=== PATIENT | female | born 1970 | race American Indian/Alaskan Native ===

== ENCOUNTER 2024-10-24 08:37 | Inpatient (IN) | payer BC, OTHER ==
[~2024-10-24] VITALS: Ht 162.6 cm; Wt 79.0 kg
[2024-10-24] MEDS: NITROGLYCERIN 0.4 MG SL TAB SL ONE (09:00)
[2024-10-24 09:02] LABS: Basophils # (auto) 0.1 10 ^3/uL (0-0.2); Eosinophils # (auto) 0.3 10 ^3/uL (0-0.8); Eosinophils % (auto) 4.3 % (0.0-7.0); Hematocrit 46.6 % (36.0-46.0); Hemoglobin 15.8 g/dL (12.2-16.2); Lymphocytes # (auto) 3.1 10 ^3/uL (0.4-5.4); Mean Corpuscular Hemoglobin 31.5 pg (28.0-32.0); Mean Corpuscular Hgb Conc. 33.9 g/dL (32.0-36.0); Monocytes # (auto) 0.4 10 ^3/uL (0-1.3); Monocytes % (auto) 5.7 % (0.0-12.0); Neutrophils # (auto) 2.9 10 ^3/uL (1.6-8.6); Nucleated Red Blood Cells % 0.1 %; Platelet Count (auto) 242 10^3/uL (140-450); Red Blood Cells 5.01 10^6/uL (4.0-5.20); Red Cell Distribution Width 13.5 % (11.8-14.3); White Blood Cell 6.8 10^3/uL (4.4-10.8)
--- NOTE | 2024-10-24 09:05 | ED.PDOC ---
HPI Comments 54 y.o female presents to the ED for a chief complaint of chest pain radiating to her jaw down to bilateral shoulder blades and back, associated with SOB that started this morning ambulating to the restroom. Patient describes pain as a tightness sensation, is constant, and has no alleviating or worsening factors. Patient denies any other symptoms or pain. She admits to using tobacco via cigarettes for 30+ years, quit but is now using vape device. Chief Complaint: Chest Pain Time Seen by MD: 08:46 Reviewed Notes: Nurses Notes, Medications, Allergies Allergies: Coded Allergies: Avocado (Verified Allergy, 11/11/12) Home Meds No Active Prescriptions or Reported Meds Information Source: Patient Mode of Arrival: Ambulatory Severity: Moderate Timing: Hours Duration: Since onset Location: Substernal Radiation: Back, Jaw, Shoulder (R), Shoulder (L) Quality: Tightness Onset: At Rest Cardiac Risk Factors: Smoker, HTN PE Risk Factors: None History of: None Modifying Factors: Nothing Associated Signs and Symptoms: SOB, Back Pain Past Medical History PAST MEDICAL HISTORY: HTN Surgical History: Denies all surgeries HYBRID DERIVATIVES TRADER History: No Pertinent HYBRID DERIVATIVES TRADER History Family History Family History: Reviewed,noncontributory to illness Social History Smoker: Other (vape ) Alcohol: Denies ETOH Use Drugs: Denies Drug Use Lives In: Home Constitutional: denies: chills, diaphoresis, fatigue, fever, malaise, sweats, weakness, others EENTM: denies: blurred vision, double vision, ear bleeding, ear discharge, ear drainage, ear pain, ear ringing, eye pain, eye redness, hearing loss, mouth pain, mouth swelling, nasal discharge, nose bleeding, nose congestion, nose pain, photophobia, tearing, throat pain, throat swelling, voice changes, others Respiratory: reports: SOB at rest, shortness of breath; denies: cough, he moptysis, orthopnea, SOB with excertion, stridor, wheezing, others Cardiovascular: reports: chest pain; denies: dizzy spells, diaphoresis, Dyspnea on exertion, edema, irregular heart beat, left arm pain, lightheadedness, palpitations, PND, syncope, others Gastrointestinal: denies: abdomen distended, abdominal pain, blood streaked bowels, constipated, diarrhea, dysphagia, difficulty swallowing, hematemesis, melena, nausea, poor appetite, poor fluid intake, rectal bleeding, rectal pain, vomiting, others Genitourinary: denies: abnormal vagina bleeding, burning, dyspareunia, dysuria, flank pain, frequency, hematuria, incontinence, pain, , vagina discharge, urgency, others Neurological: denies: dizziness, fainting, headache, left sided numbness, left sided weakness, numbness, paresthesia, pre-existing deficit, right sided numbness, right sided weakness, seizure, speech problems, tingling, tremors, w eakness, others Musculoskeletal: reports: others (jaw and bilateral shoulder blade pain ); denies: back pain, gout, joint pain, joint swelling, muscle pain, muscle stiffness, neck pain Integumetry: denies: bruises, change in color, change in hair/nails, dryness, laceration, lesions, lumps, rash, wounds, others Allergic/Immunocompromised: denies: Difficulty Healing, Frequent Infections, Hives, Itching, others Hematologic/Lymphatic: denies: anemia, blood clots, easy bleeding, easy bruising, swollen glands, others Endocrine: denies: excessive hunger, excessive sweating, excessive thirst, excessive urination, flushing, intolerance to cold, intolerance to heat, unexplained weight gain, unexplained weight loss, others Psychiatric: denies: anxiety, bipolar disorder, depression, hopeless, panic disorder, schizophrenia, sleepless, suicidal, others All Other Systems: Reviewed and Negative Physical Exam General Appearance: Moderate Distress HEENT: Normal ENT Inspection, Pharynx Normal, TMs Normal Neck: Full Range of Motion, Non-Tender, Normal, Normal Inspection Respiratory: Chest Non-Tender, Lungs Clear, No Accessory Muscle Use, No Respiratory Distress, Normal Breath Sounds Cardiovascular: No Edema, No JVD, No Murmur, No Gallop, Normal Peripheral Pulses, Regular Rate/Rhythm Breast Exam: Deferred Gastrointestinal: No Organomegaly, Non Tender, No Pulsatile Mass, Normal Bowel Sounds, Soft Genitalia: Deferred Pelvic: Deferred Rectal: Deferred Extremities: No calf tenderness, Normal capillary refill, Normal inspection, Normal range of motion, Non-tender, No pedal edema Musculoskeletal : Apperance: Normal Neurologic: Alert, manager logistic II-XII nml as Tested, No Motor Deficits, Normal Affect, Normal Mood, No Sensory Deficits Cerebellar Function: Normal Reflexes: Normal Skin: Dry, Normal Color, Warm Peripheral Pulses: 3+ Radial (R), 3+ Radial (L) Lymphatic: No Adenopathy Was a procedure done? Was a procedure done?: No CP Differential Dx Differential Diagnosis: A-fib, A-Flutter, Angina, Anxiety / Panic Attack, Atrial Dysrhythmia, Electrolyte Disorder Differential Diagnosis: Angina, Costochondritis, Myocardial Infarction, Pericar ditis, Pneumonia, Pneumothorax, Pulmonary Embolus X-Ray, Labs, Meds, VS Vital Signs Date Time Temp Pulse Resp B/P (MAP) Pulse Ox O2 Delivery O2 Flow Rate FiO2 10/24/24 10:48 77 10 100 Room Air* 0 21 10/24/24 10:48 87 27 109/62 (78) 96 10/24/24 09:39 78 10/24/24 09:22 77 10/24/24 08:55 98.1 86 20 130/75 (93) 97 10/24/24 08:43 85 Lab Test 10/24/24 09:59 10/24/24 09:00 10/24/24 08:45 Range/Units Troponin I High Sensitivity < 3 L < 3 L </=34 ng/L Urine Color Colorless Yellow Urine Clarity Clear Clear Urine pH 6.5 5.0-9.0 Urine Specific [place] 1.005 1.001-1.035 Urine Protein Negative Negative Urine Ketones Negative Negative Urine Blood Negative Negative /uL Urine Nitrite Negative Negative Urine Bilirubin Negative Negative Urine Urobilinogen Normal Negative mg/dL Urine Leukocyte Esterase Negative Negative /uL Urine RBC None seen 0 - 4 /hpf Urine WBC <1 0 - 5 /hpf Urine Squamous Epithelial Cells Few <5 /hpf Urine Bacteria Few H None Seen /hpf Urine Glucose Normal Normal mg/dL White Blood Count 6.8 4.4-10.8 10^3/uL Red Blood Count 5.01 4.0-5.20 10^6/uL Hemoglobin 15.8 12.2-16.2 g/dL Hematocrit 46.6 H 36.0-46.0 % Mean Corpuscular Volume 93.0 80.0-100.0 fL Mean Corpuscular Hemoglobin 31.5 28.0-32.0 pg Mean Corpuscular Hemoglobin Concent 33.9 32.0-36.0 g/dL Red Cell Distribution Width 13.5 11.8-14.3 % Platelet Count 242 140-450 10^3/uL Mean Platelet Volume 7.6 6.9-10.8 fL Neutrophils (%) (Auto) 43.0 37.0-80.0 % Lymphocytes (%) (Auto) 46.0 10.0-50.0 % Monocytes (%) (Auto) 5.7 0.0-12.0 % Eosinophils (%) (Auto) 4.3 0.0-7.0 % Basophils (%) (Auto) 1.0 0.0-2.0 % Neutrophils # (Auto) 2.9 1.6-8.6 10 ^3/uL Lymphocytes # (Auto) 3.1 0.4-5.4 10 ^3/uL Monocytes # (Auto) 0.4 0-1.3 10 ^3/uL Eosinophils # (Auto) 0.3 0-0.8 10 ^3/uL Basophils # (Auto) 0.1 0-0.2 10 ^3/uL Nucleated Red Blood Cells 0.1 % Sodium Level 141 136-145 mmol/L Potassium Level 3.7 3.5-5.1 mmol/L Chloride Level 109 H 98-107 mmol/L Carbon Dioxide Level 24 20-31 mmol/L Anion Gap 8 5-15 Blood Urea Nitrogen 7 L 9-23 mg/dL Creatinine 0.68 0.550-1.02 mg/dL Glomerular Filtration Rate Calc 103 >90 mL/min BUN/Creatinine Ratio 10.3 10.0-20.0 Serum Glucose 97 74-106 mg/dL Calcium Level 10.1 8.7-10.4 mg/dL Magnesium Level 1.9 1.6-2.6 mg/dL Total Bilirubin 1.1 H 0.2-1.0 mg/dL Aspartate Amino Transferase (AST) 17 13-40 U/L Alanine Aminotransferase (ALT) 24 7-40 U/L Alkaline Phosphatase 56 46-116 U/L Total Protein 6.8 5.7-8.2 g/dL Albumin 4.2 3.2-4.8 g/dL Current Medications Medications (Trade) Dose Ordered Sig/Tracey Route Start Time Stop Time Status Last Admin Aspirin 325 mg ONCE ONCE PO 10/24/24 09:00 10/24/24 09:08 DC 10/24/24 10:13 Sodium Chloride 1,000 ml @ 1,000 mls/hr Q1H ONCE IV 10/24/24 10:30 10/24/24 11:29 DC 10/24/24 10:30 Patient alert. Complaining of chest pain. Has risk factors for coronary artery disease. Vitals stable. Answering all questions. EKG does not show any acute changes. Was given aspirin. Establish intravenous access. Was given fluids pain Possible stress-induced. Echocardiogram. Stress test. Explained to the patient. Continue cardiac monitoring. Chest x-ray reviewed does not show any acute changes. Time of 1ST Reevaluation: 08:59 Reevaluation 1ST: Unchanged Patient Education/Counseling: Diagnosis, Treatment, Prognosis Family Education/Counseling: No Family Present Additional Information The following tests were ordered, and results were reviewed by me: Labs, XY, EKG I reviewed and agreed with the following test results read by other providers: X-Ray I discussed treatment and results with medical personnel and patient CHEST RADIOGRAPH Indication: chest pain Technique: Single frontal view of the chest was obtained COMPARISON: None FINDINGS: Lines and Tubes: None Lungs: Clear Pleura: No effusion. No pneumothorax. Cardiomediastinal contours: Unremarkable Bones: Unremarkable IMPRESSION: No acute disease. Departure 1 Departure Time of Disposition: 11:53 Impression: Primary Impression: Chest pain of unknown etiology Disposition: ADMITTED INPATIENT Admit to: Med Surg Condition: Guarded e-Prescriptions No Active Prescriptions or Reported Meds Critical Care Note Critical Care Time?: Yes (45 min-critical care time only) Stability Stability form required: No Heart Score Heart Score: Heart Score Response (Comments) Value History Slightly Suspicious 0 EKG Normal 0 Age 45-64 1 Risk Factors >3 or Hx ASHD 2 Troponin Normal limit 0 Total 3 I personally scribed for ROSALVA GLYNN MD ([email or web address]) on 10/24/24 at 09:05. Electronically submitted by Lisa Hernandez ([facility]). I personally scribed for ROSALVA GLYNN MD ([email or web address]) on 10/24/24 at 12:44. Electronically submitted by Lisa Hernandez ([facility]). ROSALVA GLYNN MD Oct 24, 2024 09:05
--- NOTE | 2024-10-24 09:23 | DVH ---
CHEST RADIOGRAPH Indication: chest pain Technique: Single frontal view of the chest was obtained COMPARISON: None FINDINGS: Lines and Tubes: None Lungs: Clear Pleura: No effusion. No pneumothorax. Cardiomediastinal contours: Unremarkable Bones: Unremarkable IMPRESSION: No acute disease.
[2024-10-24 09:26] LABS: Alanine Aminotransferase 24 U/L (7-40); Albumin 4.2 g/dL (3.2-4.8); Alkaline Phosphatase 56 U/L (46-116); Anion Gap 8 (5-15); Aspartate Aminotransferase 17 U/L (13-40); BUN/Creatinine Ratio 10.3 (10.0-20.0); Calcium 10.1 mg/dL (8.7-10.4); Carbon Dioxide 24 mmol/L (20-31); Glucose 97 mg/dL (74-106); Magnesium 1.9 mg/dL (1.6-2.6); Potassium 3.7 mmol/L (3.5-5.1); Sodium 141 mmol/L (136-145)
[2024-10-24 09:26] LABS: Urine Bacteria FEW /hpf (None Seen); Urine Blood Negative /uL (Negative); Urine Clarity Clear (Clear); Urine Color Colorless (Yellow); Urine Protein, UAD Negative (Negative); Urine Specific Gravity 1.005 (1.001-1.035); Urine Urobilinogen Normal (Negative); Urine WBC <1 /hpf (0 - 5); Urine pH 6.5 (5.0-9.0)
[2024-10-24 09:27] LABS: Bilirubin, Total 1.1 mg/dL (0.2-1.0); Total Protein 6.8 g/dL (5.7-8.2)
[2024-10-24 09:39] LABS: Blood Urea Nitrogen 7 mg/dL (9-23); Chloride 109 mmol/L (98-107)
[2024-10-24] MEDS: ASPirin 325 MG TAB PO ONE (10:13)
[2024-10-24] MEDS: SODIUM CHLORIDE 0.9% 1,000 ML IV ONE (10:30)
[2024-10-24 10:48] VITALS: PULSE 77; RESP 10; O2SAT 100
[2024-10-24] MEDS ORDERED: MORPHINE SULFATE 4 MG/ML SYR/VIAL IV PRN (13:15)
[2024-10-24] MEDS ORDERED: ACETAMINOPHEN 325 MG TAB PO PRN (13:15)
[2024-10-24] MEDS ORDERED: MORPHINE SULFATE INJ 2 MG/ml SYRG IV PRN (13:15)
[2024-10-24] MEDS ORDERED: ONDANSETRON HCL 4 MG/2 ML VIAL IV PRN (13:15)
[2024-10-24] MEDS ORDERED: NITROGLYCERIN 0.4 MG SL TAB SL PRN ×2 (13:15)
[2024-10-24] MEDS ORDERED: GABA-1250 PO (13:49)
[2024-10-24] MEDS ORDERED: LISI-285 PO (13:49)
[2024-10-24] MEDS ORDERED: TIZA-142 PO (13:49)
--- NOTE | 2024-10-24 13:58 | DVHHP2 ---
History of Present Illness Reason for Visit: Shortness of breath, nausea, diarrhea, and chest pain History of Present Illness Portia Mar is a 54-year-old female with past medical history of hy pertension who presents to the ED today for chest pain, nausea, diarrhea, and shortness of breath x1 day. Patient reports that she was in her bathroom having a bowel movement when suddenly she felt epigastric and chest pain that radiated to her back and also between her shoulder blades. She states that the pain was pressure-like and constant 8/10. She also reported nausea and diarrhea but no vomiting. Patient reports that she had a left knee surgery in 2020 from a fall and is taking medications to help relieve the pain daily. Patient states that she is compliant with her medications. Patient denies fever, chills, lightheadedness, vomiting, and dizziness. Cardiovascular: HTN Past Surgical History: Other (Left knee surgery) Family History: DM (Dad) Smoke: Quit ALCOHOL: none Drugs: None Lives: with Family Domestic Violence: Neg Review of Systems Constitutional: No: Fever, Chills, Sweats, Weakness, Malaise, Other ENT: No: Ear pain, Ear discharge, Nose pain, Nose discharge, Nose congestion, Mouth pain, Mouth swelling, Throat pain, Throat swelling, Other Respiratory: Shortness of breath; No: Cough, Dry, SOB with excertion, Wheezing, Hemoptysis, Pleuritic Pain, Sputum, Wheezing, Other Cardiovascular: No: Chest Pain, Palpitations, Orthopnea, Paroxysmal Noc. Dyspnea, Edema, Lt Headedness, Other Gastrointestinal: Nausea, Abdominal Pain; No: Vomiting, Diarrhea, Constipation, Melena, Hematochezia, Other Genitourinary: No Dysuria, No Frequency, No Incontinence, No Hematuria, No Retention, No Other Musculoskeletal: No: other, neck pain, shoulder pain, arm pain, back pain, hand pain, leg pain, foot pain Skin: No: Rash, Lesions, Jaundice, Bruising, Other Neurological: No: Weakness, Numbness, Incoordination, Change in speech, Confusion, Seizures, Other Allergies: Coded Allergies: Avocado (Verified Allergy, Unknown, 10/24/24) Exam Vital Signs Vital Signs Date Time Temp Pulse Resp B/P (MAP) Pulse Ox O2 Delivery O2 Flow Rate FiO2 10/24/24 10:48 77 10 100 Room Air* 0 21 10/24/24 10:48 109/62 (78) 10/24/24 08:55 98.1 General Appearance: Alert, Oriented X3, Cooperative, No acute distress HEENT: Atraumatic, PERRLA, EOMI, Mucous membr. moist/pink Respiratory: Clear to auscultation, Normal air movement Cardiovascular: Regular rate, Normal S1, Normal S2, No murmurs Abdominal: Normal bowel sounds, Soft, No hepatospenomegaly, No masses Extremities: No clubbing, No cyanosis, No edema, Normal pulses, No tenderness/swelling Skin: No rashes, No breakdown, No significant lesion Neuro: Normal gait, Normal speech, Strength at 5/5 X4 ext, Normal tone, Sensation intact Psych/Mental Status: Mental status NL, Mood NL Labs/Xrays Labs Test 10/24/24 09:59 10/24/24 09:00 10/24/24 08:45 Range/Units Troponin I High Sensitivity < 3 L </=34 ng/L Urine Color Colorless Yellow Urine Clarity Clear Clear Urine pH 6.5 5.0-9.0 Urine Specific [place] 1.005 1.001-1.035 Urine Protein Negative Negative Urine Ketones Negative Negative Urine Blood Negative Negative /uL Urine Nitrite Negative Negative Urine Bilirubin Negative Negative Urine Urobilinogen Normal Negative mg/dL Urine Leukocyte Esterase Negative Negative /uL Urine RBC None seen 0 - 4 /hpf Urine WBC <1 0 - 5 /hpf Urine Squamous Epithelial Cells Few <5 /hpf Urine Bacteria Few H None Seen /hpf Urine Glucose Normal Normal mg/dL White Blood Count 6.8 4.4-10.8 10^3/uL Red Blood Count 5.01 4.0-5.20 10^6/uL Hemoglobin 15.8 12.2-16.2 g/dL Hematocrit 46.6 H 36.0-46.0 % Mean Corpuscular Volume 93.0 80.0-100.0 fL Mean Corpuscular Hemoglobin 31.5 28.0-32.0 pg Mean Corpuscular Hemoglobin Concent 33.9 32.0-36.0 g/dL Red Cell Distribution Width 13.5 11.8-14.3 % Platelet Count 242 140-450 10^3/uL Mean Platelet Volume 7.6 6.9-10.8 fL Neutrophils (%) (Auto) 43.0 37.0-80.0 % Lymphocytes (%) (Auto) 46.0 10.0-50.0 % Monocytes (%) (Auto) 5.7 0.0-12.0 % Eosinophils (%) (Auto) 4.3 0.0-7.0 % Basophils (%) (Auto) 1.0 0.0-2.0 % Neutrophils # (Auto) 2.9 1.6-8.6 10 ^3/uL Lymphocytes # (Auto) 3.1 0.4-5.4 10 ^3/uL Monocytes # (Auto) 0.4 0-1.3 10 ^3/uL Eosinophils # (Auto) 0.3 0-0.8 10 ^3/uL Basophils # (Auto) 0.1 0-0.2 10 ^3/uL Nucleated Red Blood Cells 0.1 % Sodium Level 141 136-145 mmol/L Potassium Level 3.7 3.5-5.1 mmol/L Chloride Level 109 H 98-107 mmol/L Carbon Dioxide Level 24 20-31 mmol/L Anion Gap 8 5-15 Blood Urea Nitrogen 7 L 9-23 mg/dL Creatinine 0.68 0.550-1.02 mg/dL Glomerular Filtration Rate Calc 103 >90 mL/min BUN/Creatinine Ratio 10.3 10.0-20.0 Serum Glucose 97 74-106 mg/dL Calcium Level 10.1 8.7-10.4 mg/dL Magnesium Level 1.9 1.6-2.6 mg/dL Total Bilirubin 1.1 H 0.2-1.0 mg/dL Aspartate Amino Transferase (AST) 17 13-40 U/L Alanine Aminotransferase (ALT) 24 7-40 U/L Alkaline Phosphatase 56 46-116 U/L Total Protein 6.8 5.7-8.2 g/dL Albumin 4.2 3.2-4.8 g/dL CHEST RADIOGRAPH Indication: chest pain Technique: Single frontal view of the chest was obtained COMPARISON: None FINDINGS: Lines and Tubes: None Lungs: Clear Pleura: No effusion. No pneumothorax. Cardiomediastinal contours: Unremarkable Bones: Unremarkable IMPRESSION: No acute disease. Assessment/Plan Assessment/Plan Assessment/Plan: Atypical chest pain r/o ACS Heart score 2 (low) ekg noted cxr noted labs acs protocol asa statin ekg am labs am trend trop trop x 2 negative ua mg Hypertension Continue home medications Tobacco use Counseled on smoking cessation FEN/PPX cardiac diet hl DVT ppx not indicated patient ambulating PUD ppx protonix home medications reconciled Discussed plan of care with patient and nurse Admit to tele Plan discussed with: Patient My Orders Orders - RACHEL REYES Procedure Category Date Status Time Admit ADMIT 10/24/24 Transmitted 13:10 Code Status CODE 10/24/24 Transmitted 13:10 Vital Signs DARRIUS 10/24/24 Transmitted 13:10 Features Reporter DARRIUS 10/24/24 Transmitted 13:10 Cardiac DIET 10/24/24 Transmitted Diet-2gna,Lofat,Lochol Lunch Aspirin Tablet PHA 10/25/24 Transmitted 10:00 Morphine Sulfate PHA 10/24/24 Transmitted Injection 13:15 Acetaminophen Tablet PHA 10/24/24 Transmitted (Tylenol Tablet) 13:15 Docusate Sodium PHA 10/25/24 Transmitted Capsule (Colace 10:00 Complete Blood Count LAB 10/25/24 Verified 04:00 Basic Metabolic Panel LAB 10/25/24 Verified 04:00 Education - Smoking DARRIUS 10/24/24 Transmitted Cessation 13:10 Nitroglycerin PHA 10/24/24 Transmitted Sublingual (Ntrostat 13:15 Ondansetron Hcl PHA 10/24/24 Transmitted (Zofran) 13:15 Electrocardigram EKG 10/25/24 Transmitted 04:00 Alum & Mag PHA 10/24/24 Transmitted Hydrox-Simethicone 13:15 Troponin-I Hs LAB 10/24/24 Transmitted 13:10 Cardiac DARRIUS 10/24/24 Transmitted Rehabilitation - Outpa Nitroglycerin PHA 10/24/24 Transmitted Sublingual (Ntrostat 13:15 Morphine Sulfate PHA 10/24/24 Transmitted Injection 13:15 Notify Md Of Changes [facility] 10/24/24 Transmitted From Base 13:10 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
[2024-10-24] MEDS: MAALOX PLUS or MAALOX 30 ML PO ONE (15:01)
[2024-10-24 16:25] VITALS: BP 112/61; PULSE 68; RESP 18; TEMP 97.9; O2SAT 92
[2024-10-24 17:00] VITALS: BP 112/61; PULSE 68; RESP 18; TEMP 97.9; O2SAT 92
[2024-10-24] MEDS: HYDROcodone-ACET 5/325MG TAB PO PRN (18:19)
--- NOTE | 2024-10-24 19:02 | ECG ---
[facility] Test Date: 2024-10-24 Test Time: 09:39:42 Pat Name: MOISES VELIZ Department: ED Room: 0217 Gender: F [employer]: CARTER : 1970 Requested By: ROSALVA GYLNN Order Number: [id number] Reading MD: Jigar Nogueira Measurements Intervals [place] Rate: 78 P: 26 TN: 171 QRS: 74 QRSD: 93 T: 61 QT: 381 QTc: 434 Interpretive Statements Sinus rhythm Low voltage, precordial leads Probable anteroseptal infarct, old Electronically Signed On 10-28-2024 13:01:45 PST by Jigar Nogueira Please click the below link to view image of tracing.
[2024-10-24 20:00] VITALS: PULSE 67; PULSE 68
[2024-10-24 21:00] VITALS: BP 96/65; PULSE 68; RESP 17; TEMP 98.3; O2SAT 92
[2024-10-24] MEDS: ATORVASTATIN 20 MG TAB PO SCH (21:59)
[2024-10-25] VITALS (7 sets, daily range): BP systolic 89–98; BP diastolic 56–62; PULSE 59–75; RESP 17–20; TEMP 97.3–98.2; O2SAT 96–100
[2024-10-25 07:00] LABS: Basophils # (auto) 0.1 10 ^3/uL (0-0.2); Basophils % (auto) 1.5 % (0.0-2.0); Eosinophils # (auto) 0.4 10 ^3/uL (0-0.8); Eosinophils % (auto) 6.2 % (0.0-7.0); Hemoglobin 14.1 g/dL (12.2-16.2); Lymphocytes # (auto) 2.9 10 ^3/uL (0.4-5.4); Lymphocytes % (auto) 47.5 % (10.0-50.0); Mean Corpuscular Hemoglobin 31.8 pg (28.0-32.0); Mean Corpuscular Hgb Conc. 33.6 g/dL (32.0-36.0); Mean Corpuscular Volume 94.5 fL (80.0-100.0); Monocytes # (auto) 0.4 10 ^3/uL (0-1.3); Monocytes % (auto) 7.1 % (0.0-12.0); Neutrophils # (auto) 2.3 10 ^3/uL (1.6-8.6); Neutrophils % (auto) 37.7 % (37.0-80.0); Nucleated Red Blood Cells % 0.2 %; Platelet Count (auto) 229 10^3/uL (140-450); Red Blood Cells 4.44 10^6/uL (4.0-5.20); Red Cell Distribution Width 13.5 % (11.8-14.3); White Blood Cell 6.2 10^3/uL (4.4-10.8)
[2024-10-25 07:05] LABS: Calcium 9.6 mg/dL (8.7-10.4); Potassium 4.3 mmol/L (3.5-5.1); Sodium 141 mmol/L (136-145)
[2024-10-25 07:06] LABS: Anion Gap 5 (5-15); Carbon Dioxide 26 mmol/L (20-31)
[2024-10-25 07:11] LABS: BUN/Creatinine Ratio 10.1 (10.0-20.0); Glucose 88 mg/dL (74-106)
[2024-10-25 07:14] LABS: Blood Urea Nitrogen 7 mg/dL (9-23); Chloride 110 mmol/L (98-107)
[2024-10-25] MEDS: DOCUSATE SOD 100 MG CAP PO SCH (10:00)
[2024-10-25] MEDS: PANTOPRAZOLE 40 MG/10 ML VIAL INJ IV SCH (10:05)
[2024-10-25] MEDS: ASPirin 81 mg TAB PO SCH (10:06)
--- NOTE | 2024-10-25 13:29 | DVHPN2 ---
Reviewed: Care Plan, H&P, Labs, Medications, Previous Orders, Radiology Changes from previous H/P or p: No Changes ENT: No Ear pain, No Ear discharge, No Nose pain, No Nose discharge, No Nose congestion, No Mouth pain, No Mouth swelling, No Throat pain, No Throat swelling, No Other Cardiovascular: No Chest Pain, No Palpitations, No Orthopnea, No Paroxysmal Noc. Dyspnea, No Edema, No Lt Headedness, No Other Respiratory: No Cough, No Dry; Shortness of breath; No SOB with excertion, No Wheezing, No Hemoptysis, No Pleuritic Pain, No Sputum, No Other Gastrointestinal: Nausea; No Vomiting; Abdominal Pain; No Diarrhea, No Constipation, No Melena, No Hematochezia, No Other Genitourinary: No Dysuria, No Frequency, No Incontinence, No Hematuria, No Retention, No Other Musculoskeletal: No other, No neck pain, No shoulder pain, No arm pain, No back pain, No hand pain, No leg pain, No foot pain Skin: No Rash, No Lesions, No Jaundice, No Bruising, No Other Objective Vitals Vital Signs Date Time Temp Pulse Resp B/P (MAP) Pulse Ox O2 Delivery O2 Flow Rate FiO2 10/25/24 09:24 97.3 63 17 92/59 (70) 96 97.3 10/25/24 07:50 Room Air* 0 21 Intake/Output Intake and Output 10/25/24 07:00 Intake Total 360 ml Balance 360 ml Intake Oral 360 ml # Voids 3 # Bowel Movements 1 Medications Current Medications Medications Dose Ordered Sig/Tracey Route Start Time Stop Time Status Last Admin Dose Admin Aspirin 81 mg DAILY PO 10/25/24 10:00 10/25/24 10:06 81 MG Acetaminophen 650 mg Q6HP PRN PO 10/24/24 13:15 Docusate Sodium 100 mg DAILY PO 10/25/24 10:00 Nitroglycerin 0.4 mg Q5MINP PRN SL 10/24/24 13:15 Ondansetron HCl 4 mg Q4HP PRN IV 10/24/24 13:15 Morphine Sulfate 2 mg Q30M PRN IV 10/24/24 13:15 Pantoprazole Sodium 40 mg DAILY IV 10/25/24 10:00 10/25/24 10:05 40 MG Atorvastatin Calcium 40 mg HS PO 10/24/24 22:00 10/24/24 21:59 40 MG Acetaminophen/ Hydrocodone Bitart 1 tab Q4HPRN PRN PO 10/24/24 18:00 10/25/24 10:06 1 TAB Laboratory Results Laboratory Tests 10/25/24 05:32 Chemistry Test 10/25/24 05:32 Calcium Level 9.6 mg/dL (8.7-10.4) Urinalysis Test 10/24/24 09:00 Urine Color Colorless (Yellow) Urine Clarity Clear (Clear) Urine pH 6.5 (5.0-9.0) Urine Specific [place] 1.005 (1.001-1.035) Urine Protein Negative (Negative) Urine Ketones Negative (Negative) Urine Blood Negative /uL (Negative) Urine Nitrite Negative (Negative) Urine Bilirubin Negative (Negative) Urine Urobilinogen Normal mg/dL (Negative) Urine Leukocyte Esterase Negative /uL (Negative) Urine RBC None seen /hpf (0 - 4) Urine WBC <1 /hpf (0 - 5) Urine Squamous Epithelial Cells Few /hpf (<5) Urine Bacteria Few /hpf (None Seen) H Urine Glucose Normal mg/dL (Normal) Labs and/or images reviewed: Labs reviewed by me, Image(s) reviewed by me Assessment/Plan Assessment/Plan Chest pain rule out coronary artery disease, troponin negative x3, cardiology consult by Dr. Corbin Possible GERD: Pantoprazole Ordered lipase and urine drug screen Hypertension Epigastric abdominal pain: Rule out gallbladder disease, CT abdomen pelvis without contrast ordered Plan discussed with: Patient My Orders Orders - ROMERO ROSA MD Procedure Category Date Status Time * Cardiology Consult CONS 10/25/24 Transmitted 13:23 Date of Service: Oct 25, 2024 Billing Provider: ROMERO ROSA MD Common Visit Codes: [id number] INP/OBS CARE(HIGH) ROMERO ROSA MD Oct 25, 2024 13:29
--- NOTE | 2024-10-25 14:07 | DVHINCON2 ---
Date Seen: Oct 25, 2024 Referring Physician MD Christopher Reason for Consultation Chest pain with negative troponin History of Present Illness This is a 54-year-old female patient who presents to the emergency room with chief complaint of chest pain. The patient reports that the chest pain began yesterday while she was on the toilet using the restroom. She describes the pain as unprovoked, tight in nature, substernal with radiation to her shoulder, back, and jaw. She reports alleviating factors include leaning forward. Aggravating factors include lying back. She denies any associated shortness of breath. She was brought into the emergency room by a family member. She reports that the chest pain was ongoing until arrival to the emergency room. Initial twelve lead electrocardiogram reveals normal sinus rhythm without any significant ST segment changes. Troponin levels have been negative. Significant past medical history includes hypertension, asthma, and obesity. She denies any significant family cardiac history. Past Medical History Past medical history reviewed. No other significant than mentioned above. Past Surgical History Left knee replacement Family History: Diabetes mellitus G8 FATHER Family History Family history reviewed. Social History Patient has a 15 pack-year history, quit smoking cigarettes but currently uses vapes daily Patient denies any illicit drug use Patient denies any alcohol use Allergies: Coded Allergies: Avocado (Verified Allergy, Unknown, 10/24/24) Home Meds Reported Medications Tizanidine Hydrochloride (Tizanidine Hcl) 4 Mg Tab, 1 TAB PO 10/24/24 Lisinopril & Hydrochlorothiazi (Lisinopril/Hydrochlorothi) 1 Tab Tab, 1 TAB PO DAILY 10/24/24 Gabapentin (Gabapentin) 300 Mg Cap, CAP PO 10/24/24 Home Meds Home medications reviewed. Current Medications Current Medications Medications (Trade) Dose Ordered Sig/Tracey Route PRN Reason Start Time Stop Time Status Last Admin Aspirin 81 mg DAILY PO 10/25/24 10:00 10/25/24 10:06 Docusate Sodium (Colace Capsule) 100 mg DAILY PO 10/25/24 10:00 Pantoprazole Sodium (Protonix) 40 mg DAILY IV 10/25/24 10:00 10/25/24 10:05 Atorvastatin Calcium (Lipitor) 40 mg HS PO 10/24/24 22:00 10/24/24 21:59 Acetaminophen/ Hydrocodone Bitart ([place] 5/325MG Tab) 1 tab Q4HPRN PRN PO MODERATE PAIN (4-6 PAIN SCALE) 10/24/24 18:00 10/25/24 10:06 Review of Systems Constitutional: No symptom reported Ears, Nose, & Throat: No symptom reported Eyes: No symptom reported Neurological: No symptoms reported Pulmonary/Respiratory: No symptoms reported Cardiovascular: Chest pain Gastrointestinal: No symptom reported Genitourinary: No symptom reported Musculoskeletal: No symptom reported Skin: No symptom reported Psychiatric: No symptom reported Endocrine: No symptom reported Hematologic/Lymphatic: No symptom reported Vital Signs Vital Signs Date Time Temp Pulse Resp B/P (MAP) Pulse Ox O2 Delivery O2 Flow Rate FiO2 10/25/24 09:24 97.3 63 17 92/59 (70) 96 97.3 10/25/24 07:50 Room Air* 0 21 Physical Exam General Appearance: Cooperative. Well-developed. Well-nourished. No acute distress. Pulmonary/Respiratory: Clear, bilateral breaths sounds. Cardiovascular/Chest: Regular rate and rhythm. Peripheral Pulses: 2+ Radial (R). 2+ Radial (L). 2+ Pedal (R). 2+ Pedal (L) Abdominal Exam: Normal bowel sounds. Ankle Exam: Negative ankle edema Lower extremities: Negative lower extremity edema Neuro/Mental Status: A/OX4, coherent. Thoughts/Psych: Normal thought pattern. Appropriate mood and affect. Good j udgment and insight. Appearance: No acute distress. Skin Exam: Normal inspection. Normal color. Warm and dry. Large scar over left knee Labs/Diagnostic Data Labs Test 10/25/24 05:32 10/24/24 09:59 10/24/24 09:00 10/24/24 08:45 Range/Units White Blood Count 6.2 4.4-10.8 10^3/uL Red Blood Count 4.44 4.0-5.20 10^6/uL Hemoglobin 14.1 12.2-16.2 g/dL Hematocrit 42.0 36.0-46.0 % Mean Corpuscular Volume 94.5 80.0-100.0 fL Mean Corpuscular Hemoglobin 31.8 28.0-32.0 pg Mean Corpuscular Hemoglobin Concent 33.6 32.0-36.0 g/dL Red Cell Distribution Width 13.5 11.8-14.3 % Platelet Count 229 140-450 10^3/uL Mean Platelet Volume 8.2 6.9-10.8 fL Neutrophils (%) (Auto) 37.7 37.0-80.0 % Lymphocytes (%) (Auto) 47.5 10.0-50.0 % Monocytes (%) (Auto) 7.1 0.0-12.0 % Eosinophils (%) (Auto) 6.2 0.0-7.0 % Basophils (%) (Auto) 1.5 0.0-2.0 % Neutrophils # (Auto) 2.3 1.6-8.6 10 ^3/uL Lymphocytes # (Auto) 2.9 0.4-5.4 10 ^3/uL Monocytes # (Auto) 0.4 0-1.3 10 ^3/uL Eosinophils # (Auto) 0.4 0-0.8 10 ^3/uL Basophils # (Auto) 0.1 0-0.2 10 ^3/uL Nucleated Red Blood Cells 0.2 % Sodium Level 141 136-145 mmol/L Potassium Level 4.3 3.5-5.1 mmol/L Chloride Level 110 H 98-107 mmol/L Carbon Dioxide Level 26 20-31 mmol/L Anion Gap 5 5-15 Blood Urea Nitrogen 7 L 9-23 mg/dL Creatinine 0.69 0.550-1.02 mg/dL Glomerular Filtration Rate Calc 102 >90 mL/min BUN/Creatinine Ratio 10.1 10.0-20.0 Serum Glucose 88 74-106 mg/dL Calcium Level 9.6 8.7-10.4 mg/dL Lipase 87 H 12-53 U/L Troponin I High Sensitivity < 3 L </=34 ng/L Urine Color Colorless Yellow Urine Clarity Clear Clear Urine pH 6.5 5.0-9.0 Urine Specific [place] 1.005 1.001-1.035 Urine Protein Negative Negative Urine Ketones Negative Negative Urine Blood Negative Negative /uL Urine Nitrite Negative Negative Urine Bilirubin Negative Negative Urine Urobilinogen Normal Negative mg/dL Urine Leukocyte Esterase Negative Negative /uL Urine RBC None seen 0 - 4 /hpf Urine WBC <1 0 - 5 /hpf Urine Squamous Epithelial Cells Few <5 /hpf Urine Bacteria Few H None Seen /hpf Urine Glucose Normal Normal mg/dL Magnesium Level 1.9 1.6-2.6 mg/dL Total Bilirubin 1.1 H 0.2-1.0 mg/dL Aspartate Amino Transferase (AST) 17 13-40 U/L Alanine Aminotransferase (ALT) 24 7-40 U/L Alkaline Phosphatase 56 46-116 U/L Total Protein 6.8 5.7-8.2 g/dL Albumin 4.2 3.2-4.8 g/dL Assessment Chest pain, likely noncardiac Hypertension History of tobacco use Nicotine use Obese Plan/Recommendation We will continue with following plan/recommendations (Dr. Corbin): * Echocardiogram to evaluate cardiac function * Chest pain protocol * HEART score: 2 points (low score) * BP control * Labs: Lipid panel, UDS Case reviewed with . Given patient negative troponin level, unremarkable twelve lead electrocardiogram, and low HEART score, doubt ACS. In the setting of an unremarkable 12 lead electrocardiogram, there is no further inpatient cardiac workup indicated at this time. The patient may benefit from outpatient cardiac workup if deemed necessary. Thank you for allowing us to care for this patient. Please call with any questions or concerns. Critical care time spent: 39 minutes This medical document was created using an electronic medical record system with voice recognition software and computerized dictation system. Although this document has been carefully reviewed, there might still be some phonetic and typographical errors. Occasional wrong-word or ``sound-alike substitutions may have occurred due to the inherent limitations of voice recognition software. These areas are purely typographical due to imperfections of the software programs and do not reflect any compromise in the patient's medical care. Please read the chart carefully and recognize, using context, where these substitutions have occurred. Plan discussed with: Patient Date of Service: Oct 25, 2024 Billing Provider: CHINYERE WILLARD Cardiology Common Codes: [id number] INP/OBS CARE (High) Cardiology Consultation Codes: [id number] CONSULT <45MIN CHINYERE WILLARD Oct 25, 2024 14:07
[2024-10-25 17:03] LABS: Triglycerides 88 mg/dL (< 150)
[2024-10-25 17:05] LABS: Cholesterol 155 mg/dL (< 200); HDL Cholesterol 46 mg/dL (40-59)
[2024-10-25 17:46] LABS: LDL Cholesterol 100 mg/dL (< 100)
--- NOTE | 2024-10-25 20:52 | DVHINCON2 ---
Date Seen: Oct 25, 2024 Referring Physician MD Christopher Reason for Consultation Chest pain with negative troponin History of Present Illness This is a 54-year-old female with a past medical history of hypertension, asthma, and obesity who presents to the ED with complaint of chest pain. The patient reports that the chest pain began yesterday while she was on the toilet using the restroom. She describes the pain as unprovoked, tight in nature, substernal with radiation to her shoulder, back, and jaw. She reports alleviating factors include leaning forward. Aggravating factors include lying back. She denies any associated shortness of breath. She was brought into the ED by a family member. She reports that the chest pain was ongoing until arrival here. Initial twelve lead electrocardiogram reveals normal sinus rhythm without any significant ST segment changes. Troponin levels have been negative. She denies any significant family cardiac history. Chest x-ray shows NAD. Patient was admitted to the hospital. I am asked to consult on this patient. Family History: Diabetes mellitus G8 FATHER Allergies: Coded Allergies: Avocado (Verified Allergy, Unknown, 10/24/24) Home Meds Reported Medications Tizanidine Hydrochloride (Tizanidine Hcl) 4 Mg Tab, 1 TAB PO 10/24/24 Lisinopril & Hydrochlorothiazi (Lisinopril/Hydrochlorothi) 1 Tab Tab, 1 TAB PO DAILY 10/24/24 Gabapentin (Gabapentin) 300 Mg Cap, CAP PO 10/24/24 Current Medications Current Medications Medications (Trade) Dose Ordered Sig/Tracey Route PRN Reason Start Time Stop Time Status Last Admin Aspirin 81 mg DAILY PO 10/25/24 10:00 10/25/24 10:06 Docusate Sodium (Colace Capsule) 100 mg DAILY PO 10/25/24 10:00 Pantoprazole Sodium (Protonix) 40 mg DAILY IV 10/25/24 10:00 10/25/24 10:05 Atorvastatin Calcium (Lipitor) 40 mg HS PO 10/24/24 22:00 10/24/24 21:59 Acetaminophen/ Hydrocodone Bitart ([place] 5/325MG Tab) 1 tab Q4HPRN PRN PO MODERATE PAIN (4-6 PAIN SCALE) 10/24/24 18:00 10/25/24 10:06 Review of Systems Constitutional: No symptom reported Ears, Nose, & Throat: No symptom reported Eyes: No symptom reported Neurological: No symptoms reported Pulmonary/Respiratory: No symptoms reported Cardiovascular: Chest pain Gastrointestinal: No symptom reported Genitourinary: No symptom reported Musculoskeletal: No symptom reported Skin: No symptom reported Psychiatric: No symptom reported Endocrine: No symptom reported Hematologic/Lymphatic: No symptom reported Vital Signs Vital Signs Date Time Temp Pulse Resp B/P (MAP) Pulse Ox O2 Delivery O2 Flow Rate FiO2 10/25/24 13:00 97.7 64 20 94/56 (69) 99 97.7 10/25/24 07:50 Room Air* 0 21 Physical Exam GENERAL: Awake, alert, oriented. LUNGS: Clear. CARDIOVASCULAR: Heart sounds are good. ABDOMEN: Soft. SKIN: Large scar over left knee. Labs/Diagnostic Data Labs Test 10/25/24 05:32 10/24/24 09:59 10/24/24 09:00 10/24/24 08:45 Range/Units White Blood Count 6.2 4.4-10.8 10^3/uL Red Blood Count 4.44 4.0-5.20 10^6/uL Hemoglobin 14.1 12.2-16.2 g/dL Hematocrit 42.0 36.0-46.0 % Mean Corpuscular Volume 94.5 80.0-100.0 fL Mean Corpuscular Hemoglobin 31.8 28.0-32.0 pg Mean Corpuscular Hemoglobin Concent 33.6 32.0-36.0 g/dL Red Cell Distribution Width 13.5 11.8-14.3 % Platelet Count 229 140-450 10^3/uL Mean Platelet Volume 8.2 6.9-10.8 fL Neutrophils (%) (Auto) 37.7 37.0-80.0 % Lymphocytes (%) (Auto) 47.5 10.0-50.0 % Monocytes (%) (Auto) 7.1 0.0-12.0 % Eosinophils (%) (Auto) 6.2 0.0-7.0 % Basophils (%) (Auto) 1.5 0.0-2.0 % Neutrophils # (Auto) 2.3 1.6-8.6 10 ^3/uL Lymphocytes # (Auto) 2.9 0.4-5.4 10 ^3/uL Monocytes # (Auto) 0.4 0-1.3 10 ^3/uL Eosinophils # (Auto) 0.4 0-0.8 10 ^3/uL Basophils # (Auto) 0.1 0-0.2 10 ^3/uL Nucleated Red Blood Cells 0.2 % Sodium Level 141 136-145 mmol/L Potassium Level 4.3 3.5-5.1 mmol/L Chloride Level 110 H 98-107 mmol/L Carbon Dioxide Level 26 20-31 mmol/L Anion Gap 5 5-15 Blood Urea Nitrogen 7 L 9-23 mg/dL Creatinine 0.69 0.550-1.02 mg/dL Glomerular Filtration Rate Calc 102 >90 mL/min BUN/Creatinine Ratio 10.1 10.0-20.0 Serum Glucose 88 74-106 mg/dL Calcium Level 9.6 8.7-10.4 mg/dL Lipase 87 H 12-53 U/L Troponin I High Sensitivity < 3 L </=34 ng/L Urine Color Colorless Yellow Urine Clarity Clear Clear Urine pH 6.5 5.0-9.0 Urine Specific [place] 1.005 1.001-1.035 Urine Protein Negative Negative Urine Ketones Negative Negative Urine Blood Negative Negative /uL Urine Nitrite Negative Negative Urine Bilirubin Negative Negative Urine Urobilinogen Normal Negative mg/dL Urine Leukocyte Esterase Negative Negative /uL Urine RBC None seen 0 - 4 /hpf Urine WBC <1 0 - 5 /hpf Urine Squamous Epithelial Cells Few <5 /hpf Urine Bacteria Few H None Seen /hpf Urine Glucose Normal Normal mg/dL Magnesium Level 1.9 1.6-2.6 mg/dL Total Bilirubin 1.1 H 0.2-1.0 mg/dL Aspartate Amino Transferase (AST) 17 13-40 U/L Alanine Aminotransferase (ALT) 24 7-40 U/L Alkaline Phosphatase 56 46-116 U/L Total Protein 6.8 5.7-8.2 g/dL Albumin 4.2 3.2-4.8 g/dL Assessment Chest pain, likely noncardiac. Hypertension. History of tobacco use. Nicotine use. Obese. Plan/Recommendation I agree with your ongoing assessment and care of plan. Patient has been seen by Lana Lopez NP on my behalf, her/him and I discussed the plan with the patient. Echocardiogram to evaluate cardiac function. Chest pain protocol. HEART score: 2 points (low score). BP control. Labs: Lipid panel, UDS. Additional plan as per the hospital course. A total of 45 minutes was spent reviewing the patient record, examining the patient, making a diagnostic and therapeutic plan, discussing this plan with medical personnel, following up on diagnostic studies and following the patient for clinical stability excluding any and all procedures. At least 50% of this time was spent in direct, [id number] contact. Plan discussed with: Patient Date of Service: Oct 25, 2024 Billing Provider: CODY GANDHI MD Cardiology Common Codes: [id number]-[id number] INP/OBS CARE (High) Cardiology Consultation Codes: [id number] CONSULT <45MIN CODY GANDHI MD Oct 25, 2024 17:19
[2024-10-26] VITALS (8 sets, daily range): BP systolic 96–125; BP diastolic 59–72; PULSE 59–79; RESP 16–18; TEMP 97.7–98.5; O2SAT 91–100
--- NOTE | 2024-10-26 07:39 | ECG ---
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
--- NOTE | 2024-10-26 10:12 | DVHPN2 ---
Reviewed: Care Plan, H&P, Labs, Medications, Previous Orders, Radiology Changes from previous H/P or p: No Changes ENT: No Ear pain, No Ear discharge, No Nose pain, No Nose discharge, No Nose congestion, No Mouth pain, No Mouth swelling, No Throat pain, No Throat swelling, No Other Cardiovascular: No Chest Pain, No Palpitations, No Orthopnea, No Paroxysmal Noc. Dyspnea, No Edema, No Lt Headedness, No Other Respiratory: No Cough, No Dry; Shortness of breath; No SOB with excertion, No Wheezing, No Hemoptysis, No Pleuritic Pain, No Sputum, No Other Gastrointestinal: Nausea; No Vomiting; Abdominal Pain; No Diarrhea, No Constipation, No Melena, No Hematochezia, No Other Genitourinary: No Dysuria, No Frequency, No Incontinence, No Hematuria, No Retention, No Other Musculoskeletal: No other, No neck pain, No shoulder pain, No arm pain, No back pain, No hand pain, No leg pain, No foot pain Skin: No Rash, No Lesions, No Jaundice, No Bruising, No Other Objective Vitals Vital Signs Date Time Temp Pulse Resp B/P (MAP) Pulse Ox O2 Delivery O2 Flow Rate FiO2 10/26/24 08:42 98.2 74 18 110/72 (85) 91 98.2 10/25/24 20:00 Room Air* 0 21 Intake/Output Intake and Output 10/26/24 07:00 Intake Total 860 ml Balance 860 ml Intake Oral 860 ml # Voids 4 Medications Current Medications Medications Dose Ordered Sig/Tracey Route Start Time Stop Time Status Last Admin Dose Admin Aspirin 81 mg DAILY PO 10/25/24 10:00 10/25/24 10:06 81 MG Acetaminophen 650 mg Q6HP PRN PO 10/24/24 13:15 Docusate Sodium 100 mg DAILY PO 10/25/24 10:00 Nitroglycerin 0.4 mg Q5MINP PRN SL 10/24/24 13:15 Ondansetron HCl 4 mg Q4HP PRN IV 10/24/24 13:15 Morphine Sulfate 2 mg Q30M PRN IV 10/24/24 13:15 Pantoprazole Sodium 40 mg DAILY IV 10/25/24 10:00 10/25/24 10:05 40 MG Atorvastatin Calcium 40 mg HS PO 10/24/24 22:00 10/25/24 22:42 40 MG Acetaminophen/ Hydrocodone Bitart 1 tab Q4HPRN PRN PO 10/24/24 18:00 10/25/24 19:07 1 TAB Laboratory Results Laboratory Tests 10/25/24 05:32 Urinalysis Test 10/24/24 09:00 Urine Color Colorless (Yellow) Urine Clarity Clear (Clear) Urine pH 6.5 (5.0-9.0) Urine Specific [place] 1.005 (1.001-1.035) Urine Protein Negative (Negative) Urine Ketones Negative (Negative) Urine Blood Negative /uL (Negative) Urine Nitrite Negative (Negative) Urine Bilirubin Negative (Negative) Urine Urobilinogen Normal mg/dL (Negative) Urine Leukocyte Esterase Negative /uL (Negative) Urine RBC None seen /hpf (0 - 4) Urine WBC <1 /hpf (0 - 5) Urine Squamous Epithelial Cells Few /hpf (<5) Urine Bacteria Few /hpf (None Seen) H Urine Glucose Normal mg/dL (Normal) Labs and/or images reviewed: Labs reviewed by me, Image(s) reviewed by me Assessment/Plan Assessment/Plan Noncardiac Chest pain, troponin negative x3, cardiology consult by Dr. Corbin appreciated, no further cardiac workup Possible GERD: Pantoprazole Mild pancreatitis lipase 89: Consult for GI Dr. Jennifer De La Paz Hypertension Epigastric abdominal pain: Rule out gallbladder disease, CT abdomen pelvis without contrast ordered, pending Plan discussed with: Patient My Orders Orders - ROMERO ROSA MD Procedure Category Date Status Time * Cardiology Consult CONS 10/25/24 Transmitted 13:23 Drug Screen LAB 10/25/24 Logged 13:24 Date of Service: Oct 26, 2024 Billing Provider: ROMERO ROSA MD Common Visit Codes: [id number] INP/OBS CARE(HIGH) ROMERO ROSA MD Oct 26, 2024 10:12
--- NOTE | 2024-10-26 12:55 | DVHSR ---
APPROVED REPORT EXAM: Two-dimensional and M-mode echocardiogram with Doppler and color Doppler. Blood Pressure: 106/59 mmHg INDICATION Eval for cardiac function RISK FACTORS Height: 64, Weight: 172 DIMENSIONS LVDd4.1 (3.8-5.7cm)LA (2D) (1.9-4.0cm)Aortic Root2.8 (2.0-3.7cm) LVDs2.8 (2.5-4.0cm)LA (MM) (1.9-4.0cm)Aortic Cusp Exc1.6 (1.5-2.0cm) EF (%) 60.0 (55-70%)Rt. Atrium (1.9-4.0cm)Asc. Aorta cm IVSd0.9 (0.7-1.1cm)RV (D) (1.8-2.4cm) PWd1.0 (0.7-1.1cm) Mitral Valve MitralMitral Stenosis E/A ratio0.02D MVAcm2 Aortic Valve Aortic ValveAortic Stenosis LVOT Diameter2.1 (1.8-2.4cm)Doppler AVAcm2 Pulmonic Valve V21.05m/s Other Information Technically limited study due to body habitus. Unable to obtain apical view. Conclusion NORMAL LV EJECTION FRACTION IS 65% MODERATELY DILATED RV DYSKINESIS OF IVS NORMAL VALVES NO EFFUSION
--- NOTE | 2024-10-26 13:49 | DVH ---
Exam: CT CT AB PEL WO CON-NO ORAL OR IV History: Epigastric pain Comparison Study: None available TECHNIQUE: Multidetector CT of the abdomen and pelvis was performed from lung bases to pubic symphysi s. Imaging was performed without IV contrast. Axial, coronal, and sagittal multiplanar reformats were obtained from the axial data set by the technologist. RADIATION DOSE: DLP 722.5 mGy.cm; CTDI vol 14.78 mGy. Findings: Lungs: The lung bases are clear. Heart: The visualized heart is unremarkable. No cardiomegaly or pericardial effusion. Liver: Hepatic cysts. Gallbladder: Unremarkable. Spleen: Unremarkable Pancreas: Unremarkable Adrenals: 2.3 x 2.0 cm right adrenal hypoattenuating nodule. Kidneys: Unremarkable GI tract: Unremarkable : Unremarkable. Vasculature: Unremarkable Lymphadenopathy: Absent Peritoneum: No ascites Musculoskeletal: Unremarkable Soft tissues: Bilateral breast implants. Impression: 1. No acute abdominopelvic abnormalities. 2. 2.3 cm right adrenal nodule may reflect an adenoma. Consider a nonemergent, outpatient adrenal pro tocol CT for further evaluation as clinically indicated. 3. Hepatic cysts.
--- NOTE | 2024-10-26 16:19 | DVH ---
Procedure: US GALLBLADDER 10/26/2024 03:18 PM Indication: pancreatitis and elevated bilirubin Comparison: CT scan performed the same day Technique: Grayscale and color images of the right upper quadrant were obtained. FINDINGS: ASCITES: None. LIVER: Liver measures 15.3 cm craniocaudal. Liver parenchyma is homogeneous in echotexture. The larg e 6 cm septated cyst in the left hepatic lobe is demonstrated study. A 1.1 cm cyst is seen in the ri ght lobe. A complex 2.1 x 2 cm lesion noted along the inferior aspect of the right hepatic lobe whic h is probably the right adrenal adenoma seen in the accompanying CT scan. No intrahepatic ductal dila tation. Normal directional flow is seen in the portal vein. GALLBLADDER: No gallstones. No gallbladder wall edema or pericholecystic fluid. Sonographic Lau' s sign is negative. COMMON BILE DUCT: 0.5 cm in caliber. PANCREAS: Visualized portions are unremarkable. RIGHT KIDNEY: Normal in size, 11.7 without hydronephrosis. No focal lesions identified. AORTA, IVC: Visualized portions are unremarkable. OTHER: None. IMPRESSION: 1. No sonographic evidence for acute abnormality in the right upper quadrant. 2. A single small simple hepatic cyst is seen in the current exam. There were multiple simple uncomp licated cysts in the CT scan are not identified by ultrasound. Recommend further evaluation by abdomi nal CT scan or MRI without and with IV contrast on a nonemergent basis. 3. A 2.1 cm sonographically complex lesion along the inferior surface of the right hepatic lobe most likely corresponds to the benign-appearing adenoma seen in the accompanying CT scan.
--- NOTE | 2024-10-26 22:44 | DVHINCON2 ---
Date of service: Oct 26, [address] Dwayne White Reason for Consultation Mild pancreatitis History of Present Illness Portia Mar is a 54-year-old female with past medical history of hypertension who presents to the ED today for chest pain, nausea, diarrhea, and shortness of breath x1 day. Patient reports that she was in her bathroom having a bowel movement when suddenly she felt epigastric and chest pain that radiated to her back and also between her shoulder blades. She states that the pain was pressure-like and constant 8/10. She also reported nausea and diarrhea but no vomiting. Patient reports that she had a left knee surgery in 2020 from a fall and is taking medications to help relieve the pain daily. Patient states that she is compliant with her medications. Patient denies fever, chills, lightheadedness, vomiting, and dizziness. Today the patient has no further vomiting but she is still complains of moderate nausea and dyspepsia. Patient has been evaluated by Cardiology and felt to have noncardiac origin of her chest pain. She is awaiting echo and no further cardiac workup was required, Patient was noted to have mild elevation in her lipase and I was asked to consult for the same. Patient denied any aspirin or NSAID use Patient did drink some alcohol a couple of days prior to admission and sometimes you drinks wine socially once or twice a week. The patient also has been on Zep Bound for the last 5-6 months and that could also be associated mild pancreatitis Past Medical History Cardiovascular: HTN Past Surgical History Past Surgical History: Other (Left knee surgery) Family History: Diabetes mellitus G8 FATHER Allergies: Coded Allergies: Avocado (Verified Allergy, Unknown, 10/24/24) Home Meds Reported Medications Tizanidine Hydrochloride (Tizanidine Hcl) 4 Mg Tab, 1 TAB PO 10/24/24 Lisinopril & Hydrochlorothiazi (Lisinopril/Hydrochlorothi) 1 Tab Tab, 1 TAB PO DAILY 10/24/24 Gabapentin (Gabapentin) 300 Mg Cap, CAP PO 10/24/24 Vital Signs Vital Signs Date Time Temp Pulse Resp B/P (MAP) Pulse Ox O2 Delivery O2 Flow Rate FiO2 10/26/24 21:00 97.7 78 18 125/68 (87) 92 97.7 10/26/24 08:00 Room Air* 0 21 Physical Exam General Appearance: Cooperative. Well-developed. Well-nourished. No acute distress. Pulmonary/Respiratory: Clear, bilateral breaths sounds. Cardiovascular/Chest: Regular rate and rhythm. Abdominal Exam: Normal bowel sounds. Lower extremities: Negative lower extremity edema Neuro/Mental Status: A/OX4, coherent. Thoughts/Psych: Normal thought pattern. Appropriate mood and affect. Good judgment and insight. Skin Exam: Normal inspection. Normal color. Warm and dry. Large scar over left knee Labs/Diagnostic Data Labs Test 10/25/24 05:32 10/24/24 09:59 10/24/24 09:00 10/24/24 08:45 Range/Units White Blood Count 6.2 4.4-10.8 10^3/uL Red Blood Count 4.44 4.0-5.20 10^6/uL Hemoglobin 14.1 12.2-16.2 g/dL Hematocrit 42.0 36.0-46.0 % Mean Corpuscular Volume 94.5 80.0-100.0 fL Mean Corpuscular Hemoglobin 31.8 28.0-32.0 pg Mean Corpuscular Hemoglobin Concent 33.6 32.0-36.0 g/dL Red Cell Distribution Width 13.5 11.8-14.3 % Platelet Count 229 140-450 10^3/uL Mean Platelet Volume 8.2 6.9-10.8 fL Neutrophils (%) (Auto) 37.7 37.0-80.0 % Lymphocytes (%) (Auto) 47.5 10.0-50.0 % Monocytes (%) (Auto) 7.1 0.0-12.0 % Eosinophils (%) (Auto) 6.2 0.0-7.0 % Basophils (%) (Auto) 1.5 0.0-2.0 % Neutrophils # (Auto) 2.3 1.6-8.6 10 ^3/uL Lymphocytes # (Auto) 2.9 0.4-5.4 10 ^3/uL Monocytes # (Auto) 0.4 0-1.3 10 ^3/uL Eosinophils # (Auto) 0.4 0-0.8 10 ^3/uL Basophils # (Auto) 0.1 0-0.2 10 ^3/uL Nucleated Red Blood Cells 0.2 % Sodium Level 141 136-145 mmol/L Potassium Level 4.3 3.5-5.1 mmol/L Chloride Level 110 H 98-107 mmol/L Carbon Dioxide Level 26 20-31 mmol/L Anion Gap 5 5-15 Blood Urea Nitrogen 7 L 9-23 mg/dL Creatinine 0.69 0.550-1.02 mg/dL Glomerular Filtration Rate Calc 102 >90 mL/min BUN/Creatinine Ratio 10.1 10.0-20.0 Serum Glucose 88 74-106 mg/dL Hemoglobin A1c 5.3 <5.7 % A1C Calcium Level 9.6 8.7-10.4 mg/dL Triglycerides Level 88 < 150 mg/dL Cholesterol Level 155 < 200 mg/dL LDL Cholesterol 100 H < 100 mg/dL HDL Cholesterol 46 40-59 mg/dL Lipase 87 H 12-53 U/L Thyroid Stimulating Hormone (TSH) 2.07 0.55-4.78 uIU/mL Troponin I High Sensitivity < 3 L </=34 ng/L Urine Color Colorless Yellow Urine Clarity Clear Clear Urine pH 6.5 5.0-9.0 Urine Specific [place] 1.005 1.001-1.035 Urine Protein Negative Negative Urine Ketones Negative Negative Urine Blood Negative Negative /uL Urine Nitrite Negative Negative Urine Bilirubin Negative Negative Urine Urobilinogen Normal Negative mg/dL Urine Leukocyte Esterase Negative Negative /uL Urine RBC None seen 0 - 4 /hpf Urine WBC <1 0 - 5 /hpf Urine Squamous Epithelial Cells Few <5 /hpf Urine Bacteria Few H None Seen /hpf Urine Glucose Normal Normal mg/dL Magnesium Level 1.9 1.6-2.6 mg/dL Total Bilirubin 1.1 H 0.2-1.0 mg/dL Aspartate Amino Transferase (AST) 17 13-40 U/L Alanine Aminotransferase (ALT) 24 7-40 U/L Alkaline Phosphatase 56 46-116 U/L Total Protein 6.8 5.7-8.2 g/dL Albumin 4.2 3.2-4.8 g/dL Problems(with codes): (1) Alcohol use (2) Pancreatitis (3) Atypical chest pain Plan/Recommendation Assessment plan Patient has evidence of mild pancreatitis which could be multifactorial related to recent social alcohol use Other etiology could be related to the use of Zep Bound (semaglutide) that has been known to be associated with mild pancreatitis Patient has not had a recent endoscopy and she may have had a colonoscopy many years ago Patient is agreeable to proceeding with an endoscopy tomorrow to rule out peptic ulcer rule out GERD We will check a right upper quadrant gallbladder ultrasound, hepatitis panel Repeat lipase and labs in a.m. I will follow up patient with you Plan discussed with: Patient, Other (Nurse) AMY MILLS MD Oct 26, 2024 22:44
--- NOTE | 2024-10-26 23:50 | DVHPN2 ---
Progress Note - Dictate Date Seen: Oct 26, 2024 Medical Necessity Reason Pt with a Central, PICC or Fol: No Subjective Patient was seen and evaluated in follow up. Patient is complaining of SOB and abdominal pain. Echocardiogram showed an EF of 65%. Patient denies any chest pain. vital signs Vital Sign Date Time Temp Pulse Resp B/P (MAP) Pulse Ox O2 Delivery O2 Flow Rate FiO2 10/26/24 21:00 97.7 78 18 125/68 (87) 92 97.7 10/26/24 08:00 Room Air* 0 21 Total Intake and Output 10/25/24 10/25/24 10/26/24 15:00 23:00 07:00 Intake Total 460 ml 400 ml Balance 460 ml 400 ml medications Current Medications Medications Dose Ordered Sig/Tracey Route Start Time Stop Time Status Last Admin Dose Admin Aspirin 81 mg DAILY PO 10/25/24 10:00 10/26/24 10:16 81 MG Acetaminophen 650 mg Q6HP PRN PO 10/24/24 13:15 Docusate Sodium 100 mg DAILY PO 10/25/24 10:00 10/26/24 10:16 100 MG Nitroglycerin 0.4 mg Q5MINP PRN SL 10/24/24 13:15 Ondansetron HCl 4 mg Q4HP PRN IV 10/24/24 13:15 Morphine Sulfate 2 mg Q30M PRN IV 10/24/24 13:15 Pantoprazole Sodium 40 mg DAILY IV 10/25/24 10:00 10/26/24 10:16 40 MG Atorvastatin Calcium 40 mg HS PO 10/24/24 22:00 10/26/24 22:29 40 MG Acetaminophen/ Hydrocodone Bitart 1 tab Q4HPRN PRN PO 10/24/24 18:00 10/26/24 22:30 1 TAB objective GENERAL: Awake, alert, oriented. LUNGS: Clear. CARDIOVASCULAR: Heart sounds are good. ABDOMEN: Soft. SKIN: Large scar over left knee. laboratory and microbiology Laboratory Tests 10/25/24 05:32 Test 10/25/24 05:32 Range/Units Serum Glucose 88 74-106 mg/dL Problem List Chest pain, likely noncardiac. Hypertension. History of tobacco use. Nicotine use. Obese. Assessment/Plan Continued all current supportive medical care. Aspirin, Lipitor. GI prophylactics. Morphine and [place] for pain management. Nitro SL. Additional plan as per the hospital course. Plan discussed with: Patient CODY GANDHI MD Oct 26, 2024 22:42
[2024-10-27] VITALS (10 sets, daily range): BP systolic 108–118; BP diastolic 61–75; PULSE 57–77; RESP 12–18; TEMP 97.5–97.9; O2SAT 96–99
[2024-10-27 06:53] LABS: Basophils # (auto) 0.1 10 ^3/uL (0-0.2); Basophils % (auto) 1.5 % (0.0-2.0); Eosinophils # (auto) 0.4 10 ^3/uL (0-0.8); Eosinophils % (auto) 5.7 % (0.0-7.0); Hematocrit 41.6 % (36.0-46.0); Lymphocytes # (auto) 2.8 10 ^3/uL (0.4-5.4); Lymphocytes % (auto) 44.5 % (10.0-50.0); Mean Corpuscular Hemoglobin 31.8 pg (28.0-32.0); Mean Corpuscular Hgb Conc. 33.5 g/dL (32.0-36.0); Mean Corpuscular Volume 94.9 fL (80.0-100.0); Monocytes # (auto) 0.4 10 ^3/uL (0-1.3); Monocytes % (auto) 6.5 % (0.0-12.0); Neutrophils # (auto) 2.6 10 ^3/uL (1.6-8.6); Neutrophils % (auto) 41.8 % (37.0-80.0); Nucleated Red Blood Cells % 0.3 %; Platelet Count (auto) 212 10^3/uL (140-450); Red Blood Cells 4.39 10^6/uL (4.0-5.20); Red Cell Distribution Width 13.7 % (11.8-14.3); White Blood Cell 6.3 10^3/uL (4.4-10.8)
[2024-10-27 06:58] LABS: Alanine Aminotransferase 18 U/L (7-40); Albumin 3.6 g/dL (3.2-4.8); Anion Gap 5 (5-15); BUN/Creatinine Ratio 15.9 (10.0-20.0); Bilirubin, Total 0.9 mg/dL (0.2-1.0); Blood Urea Nitrogen 11 mg/dL (9-23); Calcium 9.5 mg/dL (8.7-10.4); Carbon Dioxide 27 mmol/L (20-31); Glucose 87 mg/dL (74-106); Lipase 45 U/L (12-53); Potassium 4.6 mmol/L (3.5-5.1); Sodium 143 mmol/L (136-145); Total Protein 5.7 g/dL (5.7-8.2)
[2024-10-27 06:59] LABS: Alkaline Phosphatase 43 U/L (46-116); Aspartate Aminotransferase 10 U/L (13-40); Chloride 111 mmol/L (98-107)
[2024-10-27] MEDS ORDERED: SODIUM CHLORIDE LOCK 10 ML ONE (08:14)
--- NOTE | 2024-10-27 08:28 | DVHPN2 ---
Reviewed: Care Plan, H&P, Labs, Medications, Previous Orders, Radiology Changes from previous H/P or p: No Changes ENT: No Ear pain, No Ear discharge, No Nose pain, No Nose discharge, No Nose congestion, No Mouth pain, No Mouth swelling, No Throat pain, No Throat swelling, No Other Cardiovascular: No Chest Pain, No Palpitations, No Orthopnea, No Paroxysmal Noc. Dyspnea, No Edema, No Lt Headedness, No Other Respiratory: No Cough, No Dry; Shortness of breath; No SOB with excertion, No Wheezing, No Hemoptysis, No Pleuritic Pain, No Sputum, No Other Gastrointestinal: Nausea; No Vomiting; Abdominal Pain; No Diarrhea, No Constipation, No Melena, No Hematochezia, No Other Genitourinary: No Dysuria, No Frequency, No Incontinence, No Hematuria, No Retention, No Other Musculoskeletal: No other, No neck pain, No shoulder pain, No arm pain, No back pain, No hand pain, No leg pain, No foot pain Skin: No Rash, No Lesions, No Jaundice, No Bruising, No Other Objective Vitals Vital Signs Date Time Temp Pulse Resp B/P (MAP) Pulse Ox O2 Delivery O2 Flow Rate FiO2 10/27/24 05:00 97.8 68 18 108/68 (81) 99 97.8 10/26/24 20:00 Room Air* 0 21 Intake/Output Intake and Output 10/27/24 07:00 Intake Total 200 ml Output Total 800 ml Balance -600 ml Intake Oral 200 ml Output Urine Total 800 ml # Voids 3 # Bowel Movements 1 Medications Current Medications Medications Dose Ordered Sig/Tracey Route Start Time Stop Time Status Last Admin Dose Admin Aspirin 81 mg DAILY PO 10/25/24 10:00 10/26/24 10:16 81 MG Acetaminophen 650 mg Q6HP PRN PO 10/24/24 13:15 Docusate Sodium 100 mg DAILY PO 10/25/24 10:00 10/26/24 10:16 100 MG Nitroglycerin 0.4 mg Q5MINP PRN SL 10/24/24 13:15 Ondansetron HCl 4 mg Q4HP PRN IV 10/24/24 13:15 Morphine Sulfate 2 mg Q30M PRN IV 10/24/24 13:15 Pantoprazole Sodium 40 mg DAILY IV 10/25/24 10:00 10/26/24 10:16 40 MG Atorvastatin Calcium 40 mg HS PO 10/24/24 22:00 10/26/24 22:29 40 MG Acetaminophen/ Hydrocodone Bitart 1 tab Q4HPRN PRN PO 10/24/24 18:00 10/26/24 22:30 1 TAB Laboratory Results Laboratory Tests 10/27/24 05:53 Chemistry Test 10/27/24 05:53 Albumin 3.6 g/dL (3.2-4.8) Calcium Level 9.5 mg/dL (8.7-10.4) Total Protein 5.7 g/dL (5.7-8.2) Lipid panel Test 10/27/24 05:53 Lipase 45 U/L (12-53) LFT Test 10/27/24 05:53 Alanine Aminotransferase (ALT) 18 U/L (7-40) Alkaline Phosphatase 43 U/L (46-116) L Aspartate Amino Transferase (AST) 10 U/L (13-40) L Total Bilirubin 0.9 mg/dL (0.2-1.0) Urinalysis Test 10/24/24 09:00 Urine Color Colorless (Yellow) Urine Clarity Clear (Clear) Urine pH 6.5 (5.0-9.0) Urine Specific [place] 1.005 (1.001-1.035) Urine Protein Negative (Negative) Urine Ketones Negative (Negative) Urine Blood Negative /uL (Negative) Urine Nitrite Negative (Negative) Urine Bilirubin Negative (Negative) Urine Urobilinogen Normal mg/dL (Negative) Urine Leukocyte Esterase Negative /uL (Negative) Urine RBC None seen /hpf (0 - 4) Urine WBC <1 /hpf (0 - 5) Urine Squamous Epithelial Cells Few /hpf (<5) Urine Bacteria Few /hpf (None Seen) H Urine Glucose Normal mg/dL (Normal) Labs and/or images reviewed: Labs reviewed by me, Image(s) reviewed by me Assessment/Plan Assessment/Plan Noncardiac Chest pain, troponin negative x3, cardiology consult by Dr. Corbin appreciated, no further cardiac workup Possible GERD: Pantoprazole Mild pancreatitis lipase 89: Lipase down to [address] Jennifer De La Paz Hypertension Epigastric abdominal pain: Gallbladder ultrasound negative for gallstones, CT abdomen pelvis without contrast negative for any acute pathology 2.3 cm right adrenal nodule, Radiology advised outpatient CT with adrenal protocol Dr. Jennifer De La Paz planning for EGD Plan discussed with: Patient My Orders Orders - ROMERO ROSA MD Procedure Category Date Status Time Ct Ab Pel Wo Con-No CT 10/26/24 Resulted Oral Or Iv 10:09 * [facility] [employer] CONS 10/26/24 Transmitted 10:12 Date of Service: Oct 27, 2024 Billing Provider: ROMERO ROSA MD Common Visit Codes: [id number] INP/OBS CARE(HIGH) ROMERO ROSA MD Oct 27, 2024 08:28
[2024-10-27] MEDS: LIDOCAINE VISCOUS 2% 15ML UD ONE (08:52)
[2024-10-27 08:53] LABS: Hepatitis B Surface Antigen Negative (Negative)
[2024-10-27] MEDS: MIDAZOLAM HCL 5 MG/ML-1ML VIAL ONE (08:54)
[2024-10-27] MEDS: diphenhdrAMINE HCL 50 MG/1 ML VL ONE (08:54)
[2024-10-27] MEDS: fentaNYL CITRATE 100 MCG/2 ML VL ONE (08:54)
[2024-10-27 09:11] LABS: Hepatitis C Antibody Negative (Negative)
--- NOTE | 2024-10-27 09:13 | DVHOP2 ---
Operative Report DATE OF OPERATION: 10/27/24 PROCEDURE: Upper Endoscopy with biopsy. PREOPERATIVE INDICATION: The patient is a 54 -year-old female undergoing endoscopy for epigastric pain nausea and dyspepsia POSTOPERATIVE DIAGNOSES: 1. Mild antral gastritis with pre-pyloric antral gastric erosions 2. Mild duodenitis of the duodenal bulb with a claimed fold in the postbulbar area with a central ulceration from which biopsies were obtained 3. Slightly irregular squamocolumnar junction but no esophagitis or hiatal hernia, PROCEDURE PERFORMED BY: Amy De La Paz GI NURSE: Brian SCOPE: Olympus videoendoscope. ASA CLASS: 2. PREOPERATIVE MEDICATIONS: Versed 3 mg, Fentanyl 75 mcg, Benadryl 50 mg I administered moderate sedation throughout this _9_ minutes procedure. An independent trained observer pushed medications at my direction, and monitored the patient's level of consciousness and physiological status throughout. PROCEDURE IN DETAIL: After obtaining an informed consent, the patient was placed on left lateral decubitus position. The patient was then sedated with the above medications. A bite block was placed between her teeth. The endoscope was then passed through the oropharynx, into the esophagus, and through the stomach and pylorus up to the second and third part of the duodenum. The endoscope was then withdrawn. The 2nd and 3rd part of the duodenal were normal. Duodenal bulb and postbulbar area showed duodenitis There was an inflamed fold in the postbulbar area with a central ulceration from which biopsies were obtained The pre-pyloric area and antrum showed mild antral gastritis with pre-pyloric antral gastric erosions. On retroflexion the fundus cardia and angularis were normal. Gastric biopsies were obtained. The endoscope was then withdrawn into the distal esophagus where the patient had a slightly irregular squamocolumnar junction but no significant esophagitis and no hiatal hernia The remaining distal and proximal esophagus and oropharynx were unremarkable. The patient tolerated the procedure well without difficulty. COMPLICATIONS : None SPECIMENS: Duodenal biopsies Duodenal inflamed fold biopsies Antral gastric biopsies DISPOSITION: Transfer back to the floor Stable PLAN: 1. Await for biopsy result 2. Will place pt on Protonix 40 mg bid PO 3. Carafate 1 g p.o. twice a day 4. Advance diet as tolerated 5. Outpatient follow up with me in 4-6 weeks to review results and arrange outpatient elective colonoscopy AMY DE LA PAZ MD Oct 27, 2024 09:13
[2024-10-27] MEDS: SUCRALFATE 1 GM/10 ML ORAL SUSP PO SCH (10:37)
[2024-10-27] MEDS: PANTOPRAZOLE 40 MG TAB PO SCH (17:13)
--- NOTE | 2024-10-27 22:39 | DVHPN2 ---
Progress Note - Dictate Date Seen: Oct 27, 2024 Medical Necessity Reason Pt with a Central, PICC or Fol: No Subjective Patient was seen and evaluated in follow up. Patient underwent upper endoscopy which showed mild antral gastritis with pre-pyloric antral gastric erosions, mild duodenitis of the duodenal bulb with a claimed fold in the postbulbar area with a central ulceration from which biopsies were obtained and slightly irregular squamocolumnar junction but no esophagitis or hiatal hernia. Patient started on Carafate. Hep Bs antigen and Hep C antibody are negative. vital signs Vital Sign Date Time Temp Pulse Resp B/P (MAP) Pulse Ox O2 Delivery O2 Flow Rate FiO2 10/27/24 16:39 97.5 72 18 117/75 (89) 99 97.5 10/27/24 09:09 Nasal Cannula 6.0 10/27/24 08:47 98 Total Intake and Output 10/26/24 10/26/24 10/27/24 15:00 23:00 07:00 Intake Total 200 ml 0 ml Output Total 800 ml Balance 200 ml -800 ml medications Current Medications Medications Dose Ordered Sig/Tracey Route Start Time Stop Time Status Last Admin Dose Admin Aspirin 81 mg DAILY PO 10/25/24 10:00 10/27/24 10:28 81 MG Acetaminophen 650 mg Q6HP PRN PO 10/24/24 13:15 Docusate Sodium 100 mg DAILY PO 10/25/24 10:00 10/27/24 10:28 100 MG Ondansetron HCl 4 mg Q4HP PRN IV 10/24/24 13:15 Pantoprazole Sodium 40 mg DAILY IV 10/25/24 10:00 10/27/24 10:28 40 MG Atorvastatin Calcium 40 mg HS PO 10/24/24 22:00 10/26/24 22:29 40 MG Acetaminophen/ Hydrocodone Bitart 1 tab Q4HPRN PRN PO 10/24/24 18:00 10/26/24 22:30 1 TAB Pantoprazole Sodium 40 mg BID@0600,1700 PO 10/27/24 17:00 10/27/24 17:13 40 MG Sucralfate 1 gm QID@0600,1130,1700,2200 PO 10/27/24 11:30 10/27/24 17:13 1 GM objective GENERAL: Awake, alert, oriented. LUNGS: Clear. CARDIOVASCULAR: Heart sounds are good. ABDOMEN: Soft. SKIN: Large scar over left knee. laboratory and microbiology Laboratory Tests 10/27/24 05:53 Test 10/27/24 05:53 Range/Units Serum Glucose 87 74-106 mg/dL Problem List Chest pain, likely noncardiac. Hypertension. History of tobacco use. Nicotine use. Obese. Assessment/Plan Continued all current supportive medical care. Aspirin, Lipitor. GI prophylactics. Morphine and [place] for pain management. Nitro SL. Additional plan as per the hospital course. Plan discussed with: Patient CODY GANDHI MD Oct 27, 2024 22:39
[2024-10-28 05:00] VITALS: BP 101/67; PULSE 64; RESP 18; TEMP 97.6; O2SAT 98
[2024-10-28 08:00] VITALS: PULSE 64; RESP 17; O2SAT 97
[2024-10-28 09:19] VITALS: BP 121/72; PULSE 64; RESP 17; TEMP 97.9; O2SAT 97
[2024-10-28] MEDS ORDERED: PANT40T PO (09:52)
[2024-10-28] MEDS ORDERED: SUCR1TAB31 PO (09:52)
[2024-10-28] MEDS ORDERED: ATOR-507 PO (09:52)
--- NOTE | 2024-10-28 09:52 | DVHPN2 ---
Reviewed: Care Plan, H&P, Labs, Medications, Previous Orders, Radiology Changes from previous H/P or p: No Changes ENT: No Ear pain, No Ear discharge, No Nose pain, No Nose discharge, No Nose congestion, No Mouth pain, No Mouth swelling, No Throat pain, No Throat swelling, No Other Cardiovascular: No Chest Pain, No Palpitations, No Orthopnea, No Paroxysmal Noc. Dyspnea, No Edema, No Lt Headedness, No Other Respiratory: No Cough, No Dry; Shortness of breath; No SOB with excertion, No Wheezing, No Hemoptysis, No Pleuritic Pain, No Sputum, No Other Gastrointestinal: Nausea; No Vomiting; Abdominal Pain; No Diarrhea, No Constipation, No Melena, No Hematochezia, No Other Genitourinary: No Dysuria, No Frequency, No Incontinence, No Hematuria, No Retention, No Other Musculoskeletal: No other, No neck pain, No shoulder pain, No arm pain, No back pain, No hand pain, No leg pain, No foot pain Skin: No Rash, No Lesions, No Jaundice, No Bruising, No Other Objective Vitals Vital Signs Date Time Temp Pulse Resp B/P (MAP) Pulse Ox O2 Delivery O2 Flow Rate FiO2 10/28/24 09:19 97.9 64 17 121/72 (88) 97 97.9 10/27/24 20:00 Room Air* 0 21 Intake/Output Intake and Output 10/28/24 07:00 Intake Total 1143 ml Balance 1143 ml Intake Oral 1118 ml IV Total 25 ml # Voids 2 Medications Current Medications Medications Dose Ordered Sig/Tracey Route Start Time Stop Time Status Last Admin Dose Admin Aspirin 81 mg DAILY PO 10/25/24 10:00 10/28/24 09:33 81 MG Acetaminophen 650 mg Q6HP PRN PO 10/24/24 13:15 Docusate Sodium 100 mg DAILY PO 10/25/24 10:00 10/28/24 09:32 100 MG Ondansetron HCl 4 mg Q4HP PRN IV 10/24/24 13:15 Pantoprazole Sodium 40 mg DAILY IV 10/25/24 10:00 10/28/24 09:32 40 MG Atorvastatin Calcium 40 mg HS PO 10/24/24 22:00 10/27/24 22:51 40 MG Acetaminophen/ Hydrocodone Bitart 1 tab Q4HPRN PRN PO 10/24/24 18:00 10/27/24 22:56 1 TAB Pantoprazole Sodium 40 mg BID@0600,1700 PO 10/27/24 17:00 10/28/24 06:27 40 MG Sucralfate 1 gm QID@0600,1130,1700,2200 PO 10/27/24 11:30 10/28/24 09:33 1 GM Laboratory Results Laboratory Tests 10/27/24 05:53 Urinalysis Test 10/24/24 09:00 Urine Color Colorless (Yellow) Urine Clarity Clear (Clear) Urine pH 6.5 (5.0-9.0) Urine Specific [place] 1.005 (1.001-1.035) Urine Protein Negative (Negative) Urine Ketones Negative (Negative) Urine Blood Negative /uL (Negative) Urine Nitrite Negative (Negative) Urine Bilirubin Negative (Negative) Urine Urobilinogen Normal mg/dL (Negative) Urine Leukocyte Esterase Negative /uL (Negative) Urine RBC None seen /hpf (0 - 4) Urine WBC <1 /hpf (0 - 5) Urine Squamous Epithelial Cells Few /hpf (<5) Urine Bacteria Few /hpf (None Seen) H Urine Glucose Normal mg/dL (Normal) Labs and/or images reviewed: Labs reviewed by me, Image(s) reviewed by me Assessment/Plan Assessment/Plan Noncardiac Chest pain, troponin negative x3, cardiology consult by Dr. Corbin appreciated, no further cardiac workup Possible GERD: Pantoprazole Mild pancreatitis lipase 89: Lipase down to [address] Jennifer De La Paz Hypertension Epigastric abdominal pain: Gallbladder ultrasound negative for gallstones, CT abdomen pelvis without contrast negative for any acute pathology 2.3 cm right adrenal nodule, Radiology advised outpatient CT with adrenal protocol Antral gastritis erosions duodenitis duodenal ulcer and irregular squamocolumnar junction by EGD by Dr. Jennifer De La Paz on 10/27/2024 advised pantoprazole and Carafate, biopsy result pending Plan discussed with: Patient Date of Service: Oct 28, 2024 Billing Provider: ROMERO ROSA MD Common Visit Codes: [id number] INP/OBS CARE(HIGH) ROMERO ROSA MD Oct 28, 2024 09:52
--- NOTE | 2024-10-28 09:56 | DVHDS2 ---
Discharge Summary Date of Admission Oct 24, 2024 at 13:10 Date of Discharge: Oct 28, 2024 Admitting Diagnosis Epigastric abdominal pain Wounds: EGD Labs/Diagnostic Data: Laboratory Results Test 10/27/24 05:53 10/25/24 05:32 10/24/24 09:59 10/24/24 09:00 White Blood Count 6.3 10^3/uL (4.4-10.8) Red Blood Count 4.39 10^6/uL (4.0-5.20) Hemoglobin 14.0 g/dL (12.2-16.2) Hematocrit 41.6 % (36.0-46.0) Mean Corpuscular Volume 94.9 fL (80.0-100.0) Mean Corpuscular Hemoglobin 31.8 pg (28.0-32.0) Mean Corpuscular Hemoglobin Concent 33.5 g/dL (32.0-36.0) Red Cell Distribution Width 13.7 % (11.8-14.3) Platelet Count 212 10^3/uL (140-450) Mean Platelet Volume 8.0 fL (6.9-10.8) Neutrophils (%) (Auto) 41.8 % (37.0-80.0) Lymphocytes (%) (Auto) 44.5 % (10.0-50.0) Monocytes (%) (Auto) 6.5 % (0.0-12.0) Eosinophils (%) (Auto) 5.7 % (0.0-7.0) Basophils (%) (Auto) 1.5 % (0.0-2.0) Neutrophils # (Auto) 2.6 10 ^3/uL (1.6-8.6) Lymphocytes # (Auto) 2.8 10 ^3/uL (0.4-5.4) Monocytes # (Auto) 0.4 10 ^3/uL (0-1.3) Eosinophils # (Auto) 0.4 10 ^3/uL (0-0.8) Basophils # (Auto) 0.1 10 ^3/uL (0-0.2) Nucleated Red Blood Cells 0.3 % Sodium Level 143 mmol/L (136-145) Potassium Level 4.6 mmol/L (3.5-5.1) Chloride Level 111 mmol/L (98-107) Carbon Dioxide Level 27 mmol/L (20-31) Anion Gap 5 (5-15) Blood Urea Nitrogen 11 mg/dL (9-23) Creatinine 0.69 mg/dL (0.550-1.02) Glomerular Filtration Rate Calc 102 mL/min (>90) BUN/Creatinine Ratio 15.9 (10.0-20.0) Serum Glucose 87 mg/dL (74-106) Calcium Level 9.5 mg/dL (8.7-10.4) Total Bilirubin 0.9 mg/dL (0.2-1.0) Aspartate Amino Transferase (AST) 10 U/L (13-40) Alanine Aminotransferase (ALT) 18 U/L (7-40) Alkaline Phosphatase 43 U/L (46-116) Total Protein 5.7 g/dL (5.7-8.2) Albumin 3.6 g/dL (3.2-4.8) Lipase 45 U/L (12-53) Hemoglobin A1c 5.3 % A1C (<5.7) Triglycerides Level 88 mg/dL (< 150) Cholesterol Level 155 mg/dL (< 200) LDL Cholesterol 100 mg/dL (< 100) HDL Cholesterol 46 mg/dL (40-59) Thyroid Stimulating Hormone (TSH) 2.07 uIU/mL (0.55-4.78) Troponin I High Sensitivity < 3 ng/L (</=34) Urine Color Colorless (Yellow) Urine Clarity Clear (Clear) Urine pH 6.5 (5.0-9.0) Urine Specific [place] 1.005 (1.001-1.035) Urine Protein Negative (Negative) Urine Ketones Negative (Negative) Urine Blood Negative /uL (Negative) Urine Nitrite Negative (Negative) Urine Bilirubin Negative (Negative) Urine Urobilinogen Normal mg/dL (Negative) Urine Leukocyte Esterase Negative /uL (Negative) Urine RBC None seen /hpf (0 - 4) Urine WBC <1 /hpf (0 - 5) Urine Squamous Epithelial Cells Few /hpf (<5) Urine Bacteria Few /hpf (None Seen) Urine Glucose Normal mg/dL (Normal) Test 10/24/24 08:45 Magnesium Level 1.9 mg/dL (1.6-2.6) Hepatitis B Surface Antigen Negative (Negative) Hepatitis C Antibody Negative (Negative) Other Laboratory Tests 10/27/24 05:53 Brief Hx & Hospital Course: 54-year-old female with a history of hypertension came in complaining of epigastric pain and possible chest pain troponin negative x3 cardiology consult by Dr. Corbin advised noncardiac chest pain no further cardiac workup patient had mild pancreatitis lipase 89 treated with IV fluids and NPO. Underwent EGD by Dr. De La Paz found to have gastritis duodenitis and esophagitis with erosions and underwent biopsy result pending placed on pantoprazole and Carafate gallbladder ultrasound negative for gallstones patient had a 2.3 cm right adrenal nodule by CT Radiology advised outpatient CT with the adrenal protocol. Patient was advised accordingly. Consults/Reason for consult Cardiology GI Operations or Procedures CT abdomen pelvis without contrast EGD Condition at Discharge: Fair Final Diagnosis/Problems List Noncardiac Chest pain, troponin negative x3, cardiology consult by Dr. Corbin appreciated, no further cardiac workup Possible GERD: Pantoprazole Mild pancreatitis lipase 89: Lipase down to [address] Jennifer De La Paz Hypertension Epigastric abdominal pain: Gallbladder ultrasound negative for gallstones, CT abdomen pelvis without contrast negative for any acute pathology 2.3 cm right adrenal nodule, Radiology advised outpatient CT with adrenal protocol Antral gastritis erosions duodenitis duodenal ulcer and irregular squamocolumnar junction by EGD by Dr. Jennifer De La Paz on 10/27/2024 advised pantoprazole and Carafate, biopsy result pending Discharge Disposition: Home Discharge Instruct/Medications Diet: Regular Activity: Light activity Follow Up/Referral: Follow up with the primary Dr in one week Follow up with the GI Dr. Jennifer De La Paz in 10 days for the biopsy result Medications: Pantoprazole Carafate Lipitor Transmitted to pharmacy 39 (Time taken for discharge summary 39 minutes) Discharge Statement: "Patient was advised to return to the ER or call 911 if any headaches, dizziness, shortness of breath, chest pain, abdominal pain, bleeding, fevers, or worsening of medical condition. Patient was counseled about treatment plan, medications, possible side effects, patientverbalized understanding. All questions were answered to the best of my ability. This discharge took greater then 30 minutes in planning, reviewing documentation, counseling the patient, and discussing with other team members." ASSESSMENT ASSESSMENT Hospital Course Improved Assessment Noncardiac Chest pain, troponin negative x3, cardiology consult by Dr. Corbin appreciated, no further cardiac workup Possible GERD: Pantoprazole Mild pancreatitis lipase 89: Lipase down to [address] Jennifer De La Paz Hypertension Epigastric abdominal pain: Gallbladder ultrasound negative for gallstones, CT abdomen pelvis without contrast negative for any acute pathology 2.3 cm right adrenal nodule, Radiology advised outpatient CT with adrenal protocol Antral gastritis erosions duodenitis duodenal ulcer and irregular squamocolumnar junction by EGD by Dr. Jennifer De La Paz on 10/27/2024 advised pantoprazole and Carafate, biopsy result pending Date of Service: Oct 28, 2024 Billing Provider: ROMERO ROSA MD Common Visit Codes: 38729-IKR/OBS DISCH DAY >30min ROMERO ROSA MD Oct 28, 2024 09:56
--- NOTE | 2024-10-28 14:21 | DVHPN2 ---
Progress Note - Dictate Date Seen: Oct 28, 2024 (Time of visit 11:00 a.m.) Medical Necessity Reason Pt with a Central, PICC or Fol: No Subjective No new complaints Patient is feeling better Tolerating diet Pancreatitis resolved EGD findings showed gastroduodenitis vital signs Vital Sign Date Time Temp Pulse Resp B/P (MAP) Pulse Ox O2 Delivery O2 Flow Rate FiO2 10/28/24 09:19 97.9 64 17 121/72 (88) 97 97.9 10/28/24 08:00 Room Air* 0 21 Total Intake and Output 10/27/24 10/27/24 10/28/24 15:00 23:00 07:00 Intake Total 25 ml 300 ml 818 ml Balance 25 ml 300 ml 818 ml objective General Appearance: Cooperative. Well-developed. Well-nourished. No acute distress. Pulmonary/Respiratory: Clear, bilateral breaths sounds. Cardiovascular/Chest: Regular rate and rhythm. Abdominal Exam: Normal bowel sounds. Lower extremities: Negative lower extremity edema Neuro/Mental Status: A/OX4, coherent. Thoughts/Psych: Normal thought pattern. Appropriate mood and affect. Good judgment and insight. Skin Exam: Normal inspection. Normal color. Warm and dry. Large scar over left knee laboratory and microbiology Laboratory Tests 10/27/24 05:53 Test 10/27/24 05:53 Range/Units Serum Glucose 87 74-106 mg/dL Problems(with codes): (1) Atypical chest pain (2) Pancreatitis (3) Alcohol use (4) Chest pain of unknown etiology (5) Gastroduodenitis Prognosis Plan Discharge planning is in progress Advance diet as tolerated Protonix 40 mg p.o. daily DC aspirin NSAIDs smoking alcohol Outpatient follow up with me in 4-6 weeks or next available appointment Plan discussed with: Patient AMY MILLS MD Oct 28, 2024 14:21
--- NOTE | 2024-10-29 00:03 | DVHPN2 ---
Progress Note - Dictate Date Seen: Oct 28, 2024 Medical Necessity Reason Pt with a Central, PICC or Fol: No Subjective Patient was seen and evaluated in follow up. Patient has no new complaints at this time. Patient denies any cardiac symptoms. Patient is cardiac stable for discharge. vital signs Vital Sign Date Time Temp Pulse Resp B/P (MAP) Pulse Ox O2 Delivery O2 Flow Rate FiO2 10/28/24 09:19 97.9 64 17 121/72 (88) 97 97.9 10/28/24 08:00 Room Air* 0 21 objective GENERAL: Awake, alert, oriented. LUNGS: Clear. CARDIOVASCULAR: Heart sounds are good. ABDOMEN: Soft. SKIN: Large scar over left knee. laboratory and microbiology Laboratory Tests 10/27/24 05:53 Test 10/27/24 05:53 Range/Units Serum Glucose 87 74-106 mg/dL Problem List Chest pain, likely noncardiac. Hypertension. History of tobacco use. Nicotine use. Obese. Assessment/Plan Continued all current supportive medical care. Aspirin, Lipitor. GI prophylactics. Morphine and [place] for pain management. Nitro SL. Additional plan as per the hospital course. Plan discussed with: Patient CODY GANDHI MD Oct 29, 2024 00:03
== END 2024-10-28 12:00 | disposition home or self-care (01) | DRG 391 ==
LOC: ER 08:37 → TELE 13:10 → TELE-CENTR 16:30 → CENTRAL 10-27 11:03
PROVIDERS: ATTEND Family Medicine
PROC: 0DB78ZX Excision of Stomach, Pylorus, Via Natural or Artificial Opening Endoscopic, Diagnostic (ICD-10-PCS; 2024-10-27)
PROC: 0DB98ZX Excision of Duodenum, Via Natural or Artificial Opening Endoscopic, Diagnostic (ICD-10-PCS; principal; 2024-10-27 08:47)
DX: K29.70 Gastritis, unspecified, without bleeding (principal); K85.90 Acute pancreatitis without necrosis or infection, unspecified; K25.9 Gastric ulcer, unspecified as acute or chronic, without hemorrhage or perforation; K29.80 Duodenitis without bleeding; E66.9 Obesity, unspecified; I10 Essential (primary) hypertension; Z96.652 Presence of left artificial knee joint; J45.909 Unspecified asthma, uncomplicated; R07.89 Other chest pain; Z68.29 Body mass index [BMI] 29.0-29.9, adult; Z91.018 Allergy to other foods; Z83.3 Family history of diabetes mellitus; Z87.891 Personal history of nicotine dependence
CPT/HCPCS: 36415; 43239; 71045; 74176; 76705; 80048; 80053; 80061; 81001; 83036; 83690; 83735; 84443; 84484; 85025; 86803; 87340; 93005; 93306; 99291; G0378; J2250; J2470

== ENCOUNTER 2024-12-06 08:44 | Inpatient (IN) | payer BC ==
[~2024-12-06] VITALS: Ht 165.1 cm; Wt 80.4 kg
[~2024-12-06 08:44] MED LIST: ATOR-507 PO; GABA-1250 PO; LISI-285 PO; PANT40T PO; SUCR1TAB31 PO; TIZA-142 PO
--- NOTE | 2024-12-06 09:06 | ECG ---
[facility] Test Date: 2024-12-06 Test Time: 09:00:18 Pat Name: MOISES VELIZ Department: ER Room: Gender: F Hand Clipper: NIC : 1970 Requested By: EMERGENCY EMERGENCY Order Number: [id number] Reading MD: Measurements Intervals [place] Rate: 102 P: 51 VA: 165 QRS: 65 QRSD: 88 T: 38 QT: 321 QTc: 419 Interpretive Statements Sinus tachycardia Anteroseptal infarct, old Please click the below link to view image of tracing.
--- NOTE | 2024-12-06 09:36 | ED.PDOC ---
HPI (NEURO) HPI Comments 54 year old female presents to the ED with chief complaint of left sided numbness/weakness. Patient reports that she has been experiencing worsening left sided facial numbness, weakness, and swelling for the past 3 days along with associated radiation of numbness/weakness to her left arm and leg, headache, left sided vision changes, and neck pain. Patient relays that she had went to urgent care yesterday and was prescribed 800mg Ibuprofen and Prednisone along with being given Valacyclovir in the urgent care via IV. Patient states she was taken off of her HTN medication a month ago due to being noted to be hypotensive, not taking it since. Patient denies any N/V, dizziness, facial droop, LOC, chest pain, or SOB. Chief Complaint: Body Pain Time Seen by MD: 09:26 Reviewed Notes: Nurses Notes, Medications, Allergies Information Source: Patient Mode of Arrival: Ambulatory Severity: Moderate Dizziness/Weakness Severity: Does not affect activitie Headache Severity: Moderate Timing: Days Duration: Since onset Prehospital treatment: None Headache Quality: Aching Headache Location: Generalized Weakness Location: (L) Sided Numbness Location: (L) Sided Onset: At rest Circumstances: Spontaneous Symptoms: Weakness, Numbness, Change of vision History of: None Modifying factors: Nothing Associated Signs and Symptoms: Headache, Neck Pain, Weakness, Numbness, Blurred Vision Past Medical History PAST MEDICAL HISTORY: HTN Surgical History (Other): Left knee Surgery 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: No 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 History Family History Family History: Reviewed,noncontributory to illness Social History Smoker: Other (Vapes) Alcohol: Denies ETOH Use Drugs: Denies Drug Use Lives In: Home Constitutional: denies: chills, diaphoresis, fatigue, fever, malaise, sweats, weakness, others EENTM: reports: blurred vision, others (Lt facial swelling); denies: double vision, ear bleeding, ear discharge, ear drainage, ear pain, ear ringing, eye pain, eye redness, hearing loss, mouth pain, mouth swelling, nasal discharge, nose bleeding, nose congestion, nose pain, photophobia, tearing, throat pain, throat swelling, voice changes Respiratory: denies: cough, hemoptysis, orthopnea, SOB at rest, shortness of breath, SOB with excertion, stridor, wheezing, others Cardiovascular: denies: chest pain, dizzy spells, diaphoresis, Dyspnea on exertion, edema, irregular heart beat, left arm pain, lightheadedness, palpitations, PND, syncope, others Gastrointestinal: denies: abdomen distended, abdominal pain, blood streaked bowels, constipated, diarrhea, dysphagia, difficulty swallowing, hematemesis, melena, nausea, poor appetite, poor fluid intake, rectal bleeding, rectal pain, vomiting, others Genitourinary: denies: abnormal vagina bleeding, burning, dyspareunia, dysuria, flank pain, frequency, hematuria, incontinence, pain, , vagina discharge, urgency, others Neurological: reports: headache, left sided numbness, left sided weakness, tingling; denies: dizziness, fainting, numbness, paresthesia, pre-existing deficit, right sided numbness, right sided weakness, seizure, speech problems, tremors, weakness, others Musculoskeletal: reports: neck pain; denies: back pain, gout, joint pain, joint swelling, muscle pain, muscle stiffness, others Integumetry: denies: bruises, change in color, change in hair/nails, dryness, laceration, lesions, lumps, rash, wounds, others Allergic/Immunocompromised: denies: Difficulty Healing, Frequent Infections, Hives, Itching, others Hematologic/Lymphatic: denies: anemia, blood clots, easy bleeding, easy bruising, swollen glands, others Endocrine: denies: excessive hunger, excessive sweating, excessive thirst, excessive urination, flushing, intolerance to cold, intolerance to heat, unexplained weight gain, unexplained weight loss, others Psychiatric: denies: anxiety, bipolar disorder, depression, hopeless, panic disorder, schizophrenia, sleepless, suicidal, others All Other Systems: Reviewed and Negative Physical Exam General Appearance: No Apparent Distress, Normal HEENT: Normal ENT Inspection, PERRL/EOMI, Other (Under my physical examination patient has facial numbness but no facial palsy) Neck: Full Range of Motion, Non-Tender, Normal, Normal Inspection Respiratory: Chest Non-Tender, Lungs Clear, No Accessory Muscle Use, No Respiratory Distress, Normal Breath Sounds Cardiovascular: No Edema, No JVD, No Murmur, No Gallop, Normal Peripheral Pulses, Regular Rate/Rhythm Breast Exam: Deferred Gastrointestinal: No Organomegaly, Non Tender, No Pulsatile Mass, Normal Bowel Sounds, Soft Genitalia: Deferred Pelvic: Deferred Rectal: Deferred Extremities: Decreased range of motion, No calf tenderness, Normal capillary refill, Normal inspection, Non-tender, No pedal edema Musculoskeletal : Apperance: Normal Neurologic: Alert, geological aide II-XII nml as Tested, Motor Weakness, Normal Affect, Normal Mood, No Sensory Deficits, Other (Patient with a minimal left hemiparesis also left eye is blurry Babinski negative) Cerebellar Function: Normal Reflexes: Normal Skin: Dry, Normal Color, Warm Peripheral Pulses: 1+ carotid (R), 1+ carotid (L) Lymphatic: No Adenopathy EKG EKG : Pulse Rate (adult): 102 [place]: Normal Cardiac Rhythm: ST Was a procedure done? Was a procedure done?: No Differential Diagnosis (SZ) Seizure: CVA/TIA, Hypocalcemia, Hypoglycemia, Hyponatremia, Mass Lesion CVA: Electrolyte Imbalance, Hypoglycemia, Mass Lesion, TIA General Weakness: Anemia, Dehydration, Dysrhythmia, Electrolyte imbalance, Hypoglycemia, Hypotension, Hypovolemia, TIA Headache: Migraine, Intracerebral Hemorrhage, Mass Lesion X-Ray, Labs, Meds, VS Vital Signs Date Time Temp Pulse Resp B/P (MAP) Pulse Ox O2 Delivery O2 Flow Rate FiO2 12/06/24 12:18 97.8 71 18 114/75 (88) 96 97.8 12/06/24 10:00 102 12/06/24 09:52 107 16 96 Room Air* 0 21 12/06/24 09:42 107 16 120/85 (97) 96 12/06/24 09:42 107 16 96 Room Air 12/06/24 09:04 98.5 101 19 132/84 (100) 100 12/06/24 09:00 102 Lab Test 12/06/24 09:53 12/06/24 08:50 Range/Units White Blood Count 18.0 H 4.4-10.8 10^3/uL Red Blood Count 5.13 4.0-5.20 10^6/uL Hemoglobin 16.0 12.2-16.2 g/dL Hematocrit 49.1 H 36.0-46.0 % Mean Corpuscular Volume 95.7 80.0-100.0 fL Mean Corpuscular Hemoglobin 31.1 28.0-32.0 pg Mean Corpuscular Hemoglobin Concent 32.5 32.0-36.0 g/dL Red Cell Distribution Width 14.2 11.8-14.3 % Platelet Count 230 140-450 10^3/uL Mean Platelet Volume 8.0 6.9-10.8 fL Neutrophils (%) (Auto) 92.8 H 37.0-80.0 % Lymphocytes (%) (Auto) 5.7 L 10.0-50.0 % Monocytes (%) (Auto) 1.4 0.0-12.0 % Eosinophils (%) (Auto) 0.0 0.0-7.0 % Basophils (%) (Auto) 0.1 0.0-2.0 % Neutrophils # (Auto) 16.7 H 1.6-8.6 10 ^3/uL Lymphocytes # (Auto) 1.0 0.4-5.4 10 ^3/uL Monocytes # (Auto) 0.2 0-1.3 10 ^3/uL Eosinophils # (Auto) 0 0-0.8 10 ^3/uL Basophils # (Auto) 0 0-0.2 10 ^3/uL Nucleated Red Blood Cells 0.0 % Erythrocyte Sedimentation Rate Pending Prothrombin Time Pending Prothrombin Time INR Pending Activated Partial Thromboplast Time Pending Sodium Level 141 136-145 mmol/L Potassium Level 4.4 3.5-5.1 mmol/L Chloride Level 113 H 98-107 mmol/L Carbon Dioxide Level 18 L 20-31 mmol/L Anion Gap 10 5-15 Blood Urea Nitrogen 6 L 9-23 mg/dL Creatinine 0.68 0.550-1.02 mg/dL Glomerular Filtration Rate Calc 103 >90 mL/min BUN/Creatinine Ratio 8.8 L 10.0-20.0 Serum Glucose 125 H 74-106 mg/dL Calcium Level 9.8 8.7-10.4 mg/dL Magnesium Level 2.1 1.6-2.6 mg/dL C-Reactive Protein High Sensitivity Pending Urine Color Light-yellow Yellow Urine Clarity Clear Clear Urine pH 6.0 5.0-9.0 Urine Specific [place] 1.008 1.001-1.035 Urine Protein Negative Negative Urine Ketones Negative Negative Urine Blood Negative Negative /uL Urine Nitrite Negative Negative Urine Bilirubin Negative Negative Urine Urobilinogen Normal Negative mg/dL Urine Leukocyte Esterase Negative Negative /uL Urine RBC 1 0 - 4 /hpf Urine Microscopic WBC 1 0-5 /HPF Urine Squamous Epithelial Cells Few <5 /hpf Urine Bacteria Few H None Seen /hpf Urine Glucose Normal Normal mg/dL Current Medications Medications (Trade) Dose Ordered Sig/Tracey Route Start Time Stop Time Status Last Admin Sodium Chloride 1,000 ml @ 250 mls/hr Q4H ONCE IV 12/06/24 09:30 12/06/24 13:29 12/06/24 09:51 Acetaminophen (Tylenol Tablet Or Capsule) 1,000 mg ONCE ONCE PO 12/06/24 11:15 12/06/24 11:16 DC 12/06/24 11:12 CT Head: FINDINGS: There is no acute intracranial hemorrhage or extraaxial fluid collection. No mass effect or midline shift. The ventricles and sulci are within normal limits in size for age. Basal cisterns are patent. The calvarium is unremarkable. Paranasal sinuses and mastoid air cells are clear. IMPRESSION: No CT evidence of acute intracranial abnormality. X-Ray, Labs, Meds, VS Comment Course in the emergency department eventful patient came in complaining of weakness of the face with numbness weakness to the arm and leg and left-sided headache no past medical history of any significance she had a seizure of her left knee she does vape minimal alcohol and no drugs EKG shows sinus tachycardia at 102 CT of the head is normal CBC 21926 with 86.8% neutrophils and normal H&H BNP negative Urine negative Blood sugar 125 Magnesium 2.2 Patient with a weakness of the left leg left arm numbness to the left cheek and face blurry vision left side Patient will be admitted for further care neurology will need to consulted Images Reviewed?: Images reviewed and evaluated by me Time of 1ST Reevaluation: 10:26 Reevaluation 1ST: Unchanged Time of 2ND Reevaluation: 11:09 Reevaluation 2ND: Unchanged Patient Education/Counseling: Diagnosis, Treatment, Prognosis Family Education/Counseling: Diagnosis, Treatment, Prognosis, No Family Present Departure 1 Departure Time of Disposition: 11:11 Impression: Primary Impression: Transient ischemic attack Additional Impressions: Blurred vision Neutrophilic leukocytosis Left-sided headache Disposition: ADMITTED INPATIENT Condition: Serious Critical Care Note Critical Care Time?: No Stability Stability form required: Yes Unstable for transfer: Telemetry monitoring (Telemetry monitoring required), Requires medication (Requires Med for stabilization) Heart Score Heart Score: Heart Score Response (Comments) Value History Slightly Suspicious 0 EKG Normal 0 Age 45-64 1 Risk Factors No known risk factors 0 Troponin N/A 0 Total 1 I personally scribed for DEANNE ANDRADE MD ([email or web address]) on 12/06/24 at 09:36. Electronically submitted by Mariusz Andrews ([email or web address]). I personally scribed for DEANNE ANDRADE MD ([email or web address]) on 12/06/24 at 10:37. Electronically submitted by Mariusz Andrews ([email or web address]). DEANNE ANDRADE MD Dec 06, 2024 09:36
[2024-12-06] MEDS: SODIUM CHLORIDE 0.9% 1,000 ML IV ONE (09:51)
[2024-12-06 09:52] VITALS: PULSE 107; RESP 16; O2SAT 96
--- NOTE | 2024-12-06 10:22 | DVH ---
CLINICAL INFORMATION: 54 years old, Female; Left-sided weakness and headache. TECHNIQUE: Axial imaging was obtained through the brain without contrast. Coronal and sagittal refor matted images were obtained, reviewed, and stored. Images were reviewed in brain and bone windows. A ll CT scans at this medical facility are performed using dose modulation techniques as appropriate to a performed exam including the following: Automated exposure control was utilized; adjustment of the MA and/or KV according to patient size; and use of iterative reconstruction technique. CTDIvol = 52.53 mGy DLP = 736.16 mGy-cm COMPARISON: None FINDINGS: There is no acute intracranial hemorrhage or extraaxial fluid collection. No mass effect o r midline shift. The ventricles and sulci are within normal limits in size for age. Basal cisterns a re patent. The calvarium is unremarkable. Paranasal sinuses and mastoid air cells are clear. IMPRESSION: No CT evidence of acute intracranial abnormality.
[2024-12-06 10:25] LABS: Urine Bacteria FEW /hpf (None Seen); Urine Blood Negative /uL (Negative); Urine Clarity Clear (Clear); Urine Color Light-Yellow (Yellow); Urine Protein, UAD Negative (Negative); Urine Specific Gravity 1.008 (1.001-1.035); Urine Squamous Epithelial Cell FEW /hpf (<5); Urine Urobilinogen Normal (Negative); Urine WBC 1 /HPF (0-5)
[2024-12-06 10:35] LABS: Basophils # (auto) 0 10 ^3/uL (0-0.2); Basophils % (auto) 0.1 % (0.0-2.0); Eosinophils # (auto) 0 10 ^3/uL (0-0.8); Hematocrit 49.1 % (36.0-46.0); Lymphocytes % (auto) 5.7 % (10.0-50.0); Mean Corpuscular Hemoglobin 31.1 pg (28.0-32.0); Mean Corpuscular Hgb Conc. 32.5 g/dL (32.0-36.0); Mean Corpuscular Volume 95.7 fL (80.0-100.0); Monocytes # (auto) 0.2 10 ^3/uL (0-1.3); Monocytes % (auto) 1.4 % (0.0-12.0); Neutrophils # (auto) 16.7 10 ^3/uL (1.6-8.6); Neutrophils % (auto) 92.8 % (37.0-80.0); Platelet Count (auto) 230 10^3/uL (140-450); Red Blood Cells 5.13 10^6/uL (4.0-5.20); Red Cell Distribution Width 14.2 % (11.8-14.3)
[2024-12-06 10:52] LABS: Potassium 4.4 mmol/L (3.5-5.1); Sodium 141 mmol/L (136-145)
[2024-12-06 10:53] LABS: Anion Gap 10 (5-15); Calcium 9.8 mg/dL (8.7-10.4)
[2024-12-06 10:57] LABS: Carbon Dioxide 18 mmol/L (20-31); Chloride 113 mmol/L (98-107)
[2024-12-06 10:58] LABS: BUN/Creatinine Ratio 8.8 (10.0-20.0)
[2024-12-06 10:59] LABS: Magnesium 2.1 mg/dL (1.6-2.6)
[2024-12-06 11:00] LABS: Blood Urea Nitrogen 6 mg/dL (9-23); Glucose 125 mg/dL (74-106)
[2024-12-06] MEDS: ACETAMINOPHEN 500 MG TAB or CAP PO ONE (11:12)
--- NOTE | 2024-12-06 11:18 | DVHHP2 ---
Admitting Diagnosis: left side facial weakness History of Present Illness 54 year old female presents to the ED with chief complaint of left sided numbness/weakness. Patient reports that she has been experiencing worsening left sided facial numbness, weakness, and swelling for the past 3 days along with associated radiation of numbness/weakness to her left arm and leg, headache, left sided vision changes, and neck pain. Patient relays that she had went to urgent care yesterday and was prescribed 800mg Ibuprofen and Prednisone along with being given Valacyclovir in the urgent care via IV. Patient states she was taken off of her HTN medication a month ago due to being noted to be hypotensive, not taking it since. Patient denies any N/V, dizziness, facial droop, LOC, chest pain, or SOB. 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: No Pertinent POLYMER ENGINEER History Family History Family History: Reviewed,noncontributory to illness Social History Smoker: Other (Vapes) Alcohol: Denies ETOH Use Drugs: Denies Drug Use Lives In: Home Patient Family History: Diabetes mellitus G8 FATHER Allergies: Coded Allergies: Avocado (Verified Allergy, Unknown, 10/24/24) Home Meds Active Scripts Atorvastatin Calcium (Lipitor) 40 Mg Tab, 1 TAB PO QPM, #90 TAB 1 Refill Prov:ROMERO ROSA MD 10/28/24 Sucralfate (CARAFATE) 1 Gm Tab, 1 GM PO BID, #60 TAB Prov:ROMERO ROSA MD 10/28/24 Pantoprazole Sodium Sesquihydr (Pantoprazole Sodium) 40 Mg Tab, 40 MG PO BID, #60 TAB Prov:ROMERO ROSA MD 10/28/24 Reported Medications Tizanidine Hydrochloride (Tizanidine Hcl) 4 Mg Tab, 1 TAB PO 10/24/24 Lisinopril & Hydrochlorothiazi (Lisinopril/Hydrochlorothi) 1 Tab Tab, 1 TAB PO DAILY 10/24/24 Gabapentin (Gabapentin) 300 Mg Cap, CAP PO 10/24/24 Vital Signs Vital Signs Date Time Temp Pulse Resp B/P (MAP) Pulse Ox O2 Delivery O2 Flow Rate FiO2 12/06/24 12:18 97.8 71 18 114/75 (88) 96 97.8 12/06/24 09:52 Room Air* 0 21 Physical Exam 54 years old woman, moderate distress HEENT-atraumatic normocephalic Heart-regular rate and rhythm Lungs clear to auscultate Abdomen soft nontender nondistended Musculoskeletal-no edema cyanosis Neuro-AO x3, strength intact, sensation intact. Cranial nerves 2-12 grossly intact. Tongue is midline, able to puff cheeks. Results Labs Test 12/06/24 12:57 12/06/24 09:53 12/06/24 08:50 Range/Units White Blood Count 18.0 H 4.4-10.8 10^3/uL Red Blood Count 5.13 4.0-5.20 10^6/uL Hemoglobin 16.0 12.2-16.2 g/dL Hematocrit 49.1 H 36.0-46.0 % Mean Corpuscular Volume 95.7 80.0-100.0 fL Mean Corpuscular Hemoglobin 31.1 28.0-32.0 pg Mean Corpuscular Hemoglobin Concent 32.5 32.0-36.0 g/dL Red Cell Distribution Width 14.2 11.8-14.3 % Platelet Count 230 140-450 10^3/uL Mean Platelet Volume 8.0 6.9-10.8 fL Neutrophils (%) (Auto) 92.8 H 37.0-80.0 % Lymphocytes (%) (Auto) 5.7 L 10.0-50.0 % Monocytes (%) (Auto) 1.4 0.0-12.0 % Eosinophils (%) (Auto) 0.0 0.0-7.0 % Basophils (%) (Auto) 0.1 0.0-2.0 % Neutrophils # (Auto) 16.7 H 1.6-8.6 10 ^3/uL Lymphocytes # (Auto) 1.0 0.4-5.4 10 ^3/uL Monocytes # (Auto) 0.2 0-1.3 10 ^3/uL Eosinophils # (Auto) 0 0-0.8 10 ^3/uL Basophils # (Auto) 0 0-0.2 10 ^3/uL Nucleated Red Blood Cells 0.0 % Sodium Level 141 136-145 mmol/L Potassium Level 4.4 3.5-5.1 mmol/L Chloride Level 113 H 98-107 mmol/L Carbon Dioxide Level 18 L 20-31 mmol/L Anion Gap 10 5-15 Blood Urea Nitrogen 6 L 9-23 mg/dL Creatinine 0.68 0.550-1.02 mg/dL Glomerular Filtration Rate Calc 103 >90 mL/min BUN/Creatinine Ratio 8.8 L 10.0-20.0 Serum Glucose 125 H 74-106 mg/dL Calcium Level 9.8 8.7-10.4 mg/dL Magnesium Level 2.1 1.6-2.6 mg/dL Urine Color Light-yellow Yellow Urine Clarity Clear Clear Urine pH 6.0 5.0-9.0 Urine Specific [place] 1.008 1.001-1.035 Urine Protein Negative Negative Urine Ketones Negative Negative Urine Blood Negative Negative /uL Urine Nitrite Negative Negative Urine Bilirubin Negative Negative Urine Urobilinogen Normal Negative mg/dL Urine Leukocyte Esterase Negative Negative /uL Urine RBC 1 0 - 4 /hpf Urine Microscopic WBC 1 0-5 /HPF Urine Squamous Epithelial Cells Few <5 /hpf Urine Bacteria Few H None Seen /hpf Urine Glucose Normal Normal mg/dL Primary Diagnosis Left-sided facial weakness rule out TIA versus CVA Plan CT head negative for intracranial hemorrhage Check brain MRI to rule out stroke Check ESR and CRP for possible giant cell arthritis Check HSV for possible Albright Jones Patient denies any acute trauma Pain weakness from left side of the face all the way down to left leg. Physical exam does not notice any clinical significant changes Neurology consult Daily CIWA score Neuro check per floor protocol Check A1c, lipid level CONTENT CHECKER eval cardiac diet Full code SCD for DVT prophylaxis PPI for GI prophylaxis Plan discussed with: Patient Problems List: (1) Transient ischemic attack Status: Acute (2) Left-sided headache Status: Acute (3) Blurred vision Status: Acute Date of Service: Dec 06, 2024 Billing Provider: CLAUDE OLIVA MD Common Visit Codes: [id number] INP/OBS CARE (MOD) CLAUDE OLIVA MD Dec 06, 2024 11:18
--- NOTE | 2024-12-06 11:34 | DVH ---
CHEST RADIOGRAPH Indication: TIA Technique: Frontal and lateral view of the chest was obtained Comparison: None FINDINGS: Lines and Tubes: None Lungs: Clear Pleura: No effusion. No pneumothorax. Cardiomediastinal contours: Unremarkable Bones: Unremarkable IMPRESSION: 1. No evidence of acute disease.
[2024-12-06 12:41] LABS: INR 1.05 (0.9-1.15); Partial Thromboplastin Time 20.2 SEC (24.5-34.5); Prothrombin Time 11.1 sec (9.3-11.8)
[2024-12-06] MEDS ORDERED: ACETAMINOPHEN 325 MG TAB PO PRN (13:30)
[2024-12-06] MEDS: SODIUM CHLOR 0.9% PF (SALINE LOCK) 10ML VIAL/SYR IV SCH (14:16)
[2024-12-06 15:43] LABS: Erythrocyte Sedimentation Rate 2 mm/hr (0-20)
[2024-12-06 16:03] VITALS: BP 117/83; PULSE 73; RESP 18; TEMP 97.7; O2SAT 96
[2024-12-06] MEDS: HYDROcodone-ACET 5/325MG TAB PO PRN (16:18)
[2024-12-06 16:38] VITALS: BP 117/83; PULSE 73; RESP 18; TEMP 97.7; O2SAT 96
--- NOTE | 2024-12-06 16:59 | DVH ---
CLINICAL INDICATION: 54 years old, Female; left side weakness, rule out CVA. COMPARISON: None TECHNIQUE: Multisequence multiplanar MRI images of the brain were obtained without contrast. FINDINGS: No acute infarct or hemorrhage. No mass or midline shift. There are a few tiny T2/FLAIR hy perintense foci in the subcortical white matter, which are nonspecific, but may be seen with mild chr onic small-vessel ischemic disease. Ventricles and sulci are within normal limits. Basal cisterns are patent. Cerebellum, brainstem, and midline structures are within normal limits. Small retention cyst versus polyp in the left maxillary sinus. Mild mucosal thickening of the paranasal sinuses. Orbits are grossly unremarkable. IMPRESSION: 1. No evidence of acute intracranial abnormality. No evidence of acute infarct. 2. Nonspecific tiny foci of T2/FLAIR hyperintensity in the subcortical white matter. Findings may be due to mild chronic small-vessel ischemic disease. Other etiologies such as migraine headaches or de myelinating disease could also have a similar appearance in the appropriate clinical setting. Correl ate with clinical findings.
[2024-12-06] MEDS: ATORVASTATIN 20 MG TAB PO SCH (17:27)
[2024-12-06 19:13] VITALS: BP 133/72; PULSE 82; RESP 16; TEMP 97.3; O2SAT 98
[2024-12-06] MEDS: HYDROmorphone HCL 2 MG/ML VL/or syr IV PRN (19:29)
[2024-12-06 20:00] VITALS: PULSE 84; RESP 18; O2SAT 97
[2024-12-06 21:00] VITALS: BP 113/63; PULSE 71; RESP 18; TEMP 97.8; O2SAT 87
[2024-12-06] MEDS: PANTOPRAZOLE 40 MG TAB PO SCH (21:08)
[2024-12-06] MEDS: SUCRALFATE 1 GM TAB PO SCH (21:08)
--- NOTE | 2024-12-06 21:11 | DVHINCON2 ---
Date of service: Dec 06, 2024 Family History: Diabetes mellitus G8 FATHER Allergies: Coded Allergies: Avocado (Verified Allergy, Unknown, 10/24/24) Home Meds Active Scripts Atorvastatin Calcium (Lipitor) 40 Mg Tab, 1 TAB PO QPM, #90 TAB 1 Refill Prov:ROMERO ROSA MD 10/28/24 Sucralfate (CARAFATE) 1 Gm Tab, 1 GM PO BID, #60 TAB Prov:ROMERO ROSA MD 10/28/24 Pantoprazole Sodium Sesquihydr (Pantoprazole Sodium) 40 Mg Tab, 40 MG PO BID, #60 TAB Prov:ROMERO ROSA MD 10/28/24 Reported Medications Tizanidine Hydrochloride (Tizanidine Hcl) 4 Mg Tab, 1 TAB PO 10/24/24 Lisinopril & Hydrochlorothiazi (Lisinopril/Hydrochlorothi) 1 Tab Tab, 1 TAB PO DAILY 10/24/24 Gabapentin (Gabapentin) 300 Mg Cap, CAP PO 10/24/24 Current Medications Current Medications Medications (Trade) Dose Ordered Sig/Tracey Route PRN Reason Start Time Stop Time Status Last Admin Pantoprazole Sodium (Protonix Tablet) 40 mg BID PO 12/06/24 22:00 12/06/24 21:08 Sucralfate (Carafate Tab) 1 gm BID PO 12/06/24 22:00 12/06/24 21:08 Atorvastatin Calcium (Lipitor) 40 mg QPM PO 12/06/24 18:00 12/06/24 17:27 Patient Own Medication 1 tab DAILY PO 12/07/24 10:00 Sodium Chloride (Saline Lock Ns) 10 ml Q8HR IV 12/06/24 14:00 12/06/24 21:08 Docusate Sodium (Colace Capsule) 100 mg BIDPRN PRN PO FOR CONSTIPATION 12/06/24 13:30 Acetaminophen (Tylenol Tablet) 650 mg Q6HP PRN PO PAIN SCALE 1-3 OR TEMP>100.4 12/06/24 13:30 Acetaminophen/ Hydrocodone Bitart ([place] 5/325MG Tab) 1 tab Q4HP PRN PO MODERATE PAIN (4-6 PAIN SCALE) 12/06/24 13:30 12/06/24 16:18 Hydromorphone HCl (Dilaudid Injection) 0.5 mg Q4HP PRN IV SEVERE PAIN (7-10 PAIN SCALE) 12/06/24 13:30 12/06/24 19:29 Ondansetron HCl (Zofran) 4 mg Q4HP PRN IV NAUSEA / VOMITING 12/06/24 13:30 Enoxaparin Sodium (Lovenox) 40 mg DAILY SC 12/07/24 10:00 Pantoprazole Sodium (Protonix) 40 mg DAILY IV 12/07/24 10:00 Vital Signs Vital Signs Date Time Temp Pulse Resp B/P (MAP) Pulse Ox O2 Delivery O2 Flow Rate FiO2 12/06/24 19:29 82 16 133/72 12/06/24 19:13 97.3 98 97.3 12/06/24 16:03 Room Air* 0 21 Labs/Diagnostic Data Labs Test 12/06/24 14:37 12/06/24 09:53 12/06/24 08:50 Range/Units Erythrocyte Sedimentation Rate 2 0-20 mm/hr Hemoglobin A1c 5.3 <5.7 % A1C White Blood Count 18.0 H 4.4-10.8 10^3/uL Red Blood Count 5.13 4.0-5.20 10^6/uL Hemoglobin 16.0 12.2-16.2 g/dL Hematocrit 49.1 H 36.0-46.0 % Mean Corpuscular Volume 95.7 80.0-100.0 fL Mean Corpuscular Hemoglobin 31.1 28.0-32.0 pg Mean Corpuscular Hemoglobin Concent 32.5 32.0-36.0 g/dL Red Cell Distribution Width 14.2 11.8-14.3 % Platelet Count 230 140-450 10^3/uL Mean Platelet Volume 8.0 6.9-10.8 fL Neutrophils (%) (Auto) 92.8 H 37.0-80.0 % Lymphocytes (%) (Auto) 5.7 L 10.0-50.0 % Monocytes (%) (Auto) 1.4 0.0-12.0 % Eosinophils (%) (Auto) 0.0 0.0-7.0 % Basophils (%) (Auto) 0.1 0.0-2.0 % Neutrophils # (Auto) 16.7 H 1.6-8.6 10 ^3/uL Lymphocytes # (Auto) 1.0 0.4-5.4 10 ^3/uL Monocytes # (Auto) 0.2 0-1.3 10 ^3/uL Eosinophils # (Auto) 0 0-0.8 10 ^3/uL Basophils # (Auto) 0 0-0.2 10 ^3/uL Nucleated Red Blood Cells 0.0 % Prothrombin Time 11.1 9.3-11.8 sec Prothrombin Time INR 1.05 0.9-1.15 Activated Partial Thromboplast Time 20.2 L 24.5-34.5 SEC Sodium Level 141 136-145 mmol/L Potassium Level 4.4 3.5-5.1 mmol/L Chloride Level 113 H 98-107 mmol/L Carbon Dioxide Level 18 L 20-31 mmol/L Anion Gap 10 5-15 Blood Urea Nitrogen 6 L 9-23 mg/dL Creatinine 0.68 0.550-1.02 mg/dL Glomerular Filtration Rate Calc 103 >90 mL/min BUN/Creatinine Ratio 8.8 L 10.0-20.0 Serum Glucose 125 H 74-106 mg/dL Calcium Level 9.8 8.7-10.4 mg/dL Magnesium Level 2.1 1.6-2.6 mg/dL C-Reactive Protein High Sensitivity < 0.02 <1.0 mg/dL Urine Color Light-yellow Yellow Urine Clarity Clear Clear Urine pH 6.0 5.0-9.0 Urine Specific [place] 1.008 1.001-1.035 Urine Protein Negative Negative Urine Ketones Negative Negative Urine Blood Negative Negative /uL Urine Nitrite Negative Negative Urine Bilirubin Negative Negative Urine Urobilinogen Normal Negative mg/dL Urine Leukocyte Esterase Negative Negative /uL Urine RBC 1 0 - 4 /hpf Urine Microscopic WBC 1 0-5 /HPF Urine Squamous Epithelial Cells Few <5 /hpf Urine Bacteria Few H None Seen /hpf Urine Glucose Normal Normal mg/dL Plan/Recommendation [place] [facility] Note # Demographics Consult Type: General Neurology Patient Location: Inpatient First Name: Lazara Last Name: Zaid Date of : 1970 Age: 54 Gender: Female Facility: [facility] Time of Initial Page (): 12/06/2024 20:41 Time of Return Call ( Time): 12/06/2024 20:41 # HPI Chief Complaint: - numbness - weakness (focal) History: 54 y/o woman admitted with left sided numbness and weakness. Patient reports symptoms started 3-4 days ago. Involves left face, arm, and leg. Feels like face and lymph nodes as well as left leg are all swollen. Also has a band of pain around her head. No similar symptoms previously. No provoking factor. Now feeling better after getting dilaudid. Neck does feel stiff, pain in the back of her neck. Face has been flushed. # Scores Time of exam and NIHSS ([place] Time): 12/06/2024 21:04 Level of Consciousness 1a: [0] = Alert; keenly responsive LOC Questions 1b: [0] = Answers both questions correctly LOC Commands 1c: [0] = Performs both tasks correctly Best Gaze 2: [0] = Normal Visual 3: [0] = No visual loss Facial Palsy 4: [0] = Normal symmetrical movements Motor Arm Left 5a: [0] = No drift Motor Arm Right 5b: [0] = No drift Motor Leg Left 6a: [0] = No drift Motor Leg Right 6b: [0] = No drift Limb Ataxia 7: [0] = Absent Sensory 8: [1] = [id number] sensory loss Best Language 9: [0] = No aphasia Dysarthria 10: [0] = Normal Extinction and Inattention 11: [0] = No abnormality NIHSS Total: 1 # PMH-FH-SH Past Medical History: Previously healthy Medications: - denies # Data Other Labs: CRP <0.02 WBC 18 MRI: - no acute ischemia - per radiologist read # Assessment Impression: Unilateral numbness and subjective swelling---unilateral nature raises question of stroke, but MRI negative for acute stroke. Not likely to be TIA with continued symptoms. Elevated WBC raises question of infection. Unilateral symptoms with concurrent headache raises question of migraine. Lastly, neck pain raises question of meningitis. # Plan Thrombolytic/Intervention: NOT IV Thrombolysis or IA Intervention candidate Thrombolytic Exclusion: > 4.5 hours Intraarterial Exclusion: doubt LVO based on clinical exam Imaging: (urgency: routine): CTV head Diagnostic Test: - Lumbar puncture: cell count, protein, glucose, gram stain, and culture Medication: - migraine cocktail: Toradol 30 mg IV + Benadryl 25 mg IV + antiemetic IV Other: - If patient has any neurological deterioration please call me back immediately Additional Recommendations: Additional testing/treatment to depend on test results and clinical course. # Logistics Attestation of consult completion: The patient is located at: [facility]. Facility staff participated in the visit. I performed this telemedicine visit from my offsite office utilizing interactive 2 way audio and visual telecommunication technology. Total time spent in telemedicine encounter: I spent 20 minutes reviewing clinical data and/or imaging, obtaining history, examining the patient, communicating with the onsite care team, and in preparation of this report. # Demographics First Name: Lazara Last Name: [facility] Facility: [facility] Plan discussed with: Patient VETOELEANOR MD Dec 06, 2024 21:11
[2024-12-07] VITALS (7 sets, daily range): BP systolic 107–124; BP diastolic 61–71; PULSE 61–79; RESP 17–18; TEMP 97.6–98.2; O2SAT 97–99
[2024-12-07 07:50] LABS: Basophils # (auto) 0.1 10 ^3/uL (0-0.2); Basophils % (auto) 0.5 % (0.0-2.0); Eosinophils # (auto) 0.2 10 ^3/uL (0-0.8); Eosinophils % (auto) 1.1 % (0.0-7.0); Hemoglobin 13.9 g/dL (12.2-16.2); Lymphocytes # (auto) 4.3 10 ^3/uL (0.4-5.4); Lymphocytes % (auto) 29.6 % (10.0-50.0); Mean Corpuscular Hemoglobin 31.2 pg (28.0-32.0); Mean Corpuscular Hgb Conc. 33.2 g/dL (32.0-36.0); Monocytes # (auto) 0.7 10 ^3/uL (0-1.3); Neutrophils # (auto) 9.3 10 ^3/uL (1.6-8.6); Neutrophils % (auto) 63.8 % (37.0-80.0); Platelet Count (auto) 213 10^3/uL (140-450); Red Blood Cells 4.46 10^6/uL (4.0-5.20); White Blood Cell 14.5 10^3/uL (4.4-10.8)
[2024-12-07 08:12] LABS: Alanine Aminotransferase 11 U/L (7-40); Albumin 3.8 g/dL (3.2-4.8); Alkaline Phosphatase 46 U/L (46-116); Anion Gap 8 (5-15); BUN/Creatinine Ratio 10.7 (10.0-20.0); Bilirubin, Total 0.6 mg/dL (0.2-1.0); Calcium 9.2 mg/dL (8.7-10.4); Carbon Dioxide 24 mmol/L (20-31); Glucose 97 mg/dL (74-106); Potassium 4.2 mmol/L (3.5-5.1); Sodium 143 mmol/L (136-145)
[2024-12-07 08:35] LABS: Aspartate Aminotransferase 8 U/L (13-40); Blood Urea Nitrogen 8 mg/dL (9-23); Chloride 111 mmol/L (98-107); Total Protein 5.7 g/dL (5.7-8.2)
[2024-12-07] MEDS ORDERED: PANTOPRAZOLE 40 MG/10 ML VIAL INJ IV SCH (10:00)
[2024-12-07] MEDS: HYDROCHLOROTHIAZIDE PO SCH (10:00)
[2024-12-07] MEDS: LISINOPRIL PO SCH (10:00)
[2024-12-07] MEDS: ENOXAPARIN SOD 40 MG/0.4 ML SYRINGE SC SCH (10:28)
--- NOTE | 2024-12-07 15:12 | DVH ---
CAROTID DOPPLER ULTRASOUND HISTORY: tia possible COMPARISON: None TECHNIQUE: Real time gutierrez scale, color Doppler, and spectral duplex images are obtained through the c arotid and vertebral arteries. Findings: Peak systolic velocity right internal carotid artery is 104 cm/s and right common carotid artery is 5 7 cm/s. Ratio is 1.8. Antegrade flow noted in right vertebral artery. No significant atherosclerotic plaque noted within the right carotid arterial system. Peak systolic velocity left internal carotid artery is 97 cm/s and left common carotid artery is 70 c m/s. Ratio is 1.4. Antegrade flow noted in left vertebral artery. No significant atherosclerotic plaq ue noted within the left carotid arterial system. Impression: 1. No evidence of hemodynamically significant stenosis within the bilateral carotid arterial systems. 2. Antegrade flow within bilateral vertebral arteries. Stenosis ICA/CCA PSV ratio PSV 0-40% < 1.5 25-110 cm/s 40-59% < 1.8 > 120 cm/s 60-79% 1.8-3.7 > 130 cm/s 80-99% > 3.7 < 25 cm/s, > 250 cm/s
[2024-12-07] MEDS ORDERED: VANCOMYCIN PER PHARMACY 0 MG IV SCH (19:45)
--- NOTE | 2024-12-07 19:52 | DVHPN2 ---
Subjective 2/2 - still feeling numbness and weakness in left UE LE. face symptoms numbness is resolved. she feels BL legs are swollen but not on exam. no sensation on LLE. Reviewed: H&P Changes from previous H/P or p: No Changes General: Per HPI Objective Vitals Vital Signs Date Time Temp Pulse Resp B/P (MAP) Pulse Ox O2 Delivery O2 Flow Rate FiO2 12/07/24 17:00 97.9 69 17 124/61 (82) 98 97.9 12/07/24 08:10 Room Air* 0 21 Intake/Output Intake and Output 12/07/24 07:00 Intake Total 650 ml Balance 650 ml Intake Oral 650 ml # Voids 1 Exam CN 2-12 intact. face no numbness, sensation low in LUE, sensation absent LLE weak 4/5 LUE, weak 3/5 in LLE B&B intact. AOx4 lungs, card, abd normal exam sarina vasquez neg. Medications Current Medications Medications Dose Ordered Sig/Tracey Route Start Time Stop Time Status Last Admin Dose Admin Pantoprazole Sodium 40 mg BID PO 12/06/24 22:00 12/07/24 10:27 40 MG Sucralfate 1 gm BID PO 12/06/24 22:00 12/07/24 10:27 1 GM Atorvastatin Calcium 40 mg QPM PO 12/06/24 18:00 12/07/24 18:20 40 MG Patient Own Medication 1 tab DAILY PO 12/07/24 10:00 Sodium Chloride 10 ml Q8HR IV 12/06/24 14:00 12/07/24 15:25 10 ML Docusate Sodium 100 mg BIDPRN PRN PO 12/06/24 13:30 Acetaminophen 650 mg Q6HP PRN PO 12/06/24 13:30 Acetaminophen/ Hydrocodone Bitart 1 tab Q4HP PRN PO 12/06/24 13:30 12/06/24 16:18 1 TAB Hydromorphone HCl 0.5 mg Q4HP PRN IV 12/06/24 13:30 12/07/24 15:35 0.5 MG Ondansetron HCl 4 mg Q4HP PRN IV 12/06/24 13:30 Enoxaparin Sodium 40 mg DAILY SC 12/07/24 10:00 12/07/24 10:28 40 MG Trazodone HCl 50 mg DAILY PRN PO 12/07/24 19:45 UNV Laboratory Results Laboratory Tests 12/07/24 07:29 Chemistry Test 12/07/24 07:29 Albumin 3.8 g/dL (3.2-4.8) Calcium Level 9.2 mg/dL (8.7-10.4) Total Protein 5.7 g/dL (5.7-8.2) LFT Test 12/07/24 07:29 Alanine Aminotransferase (ALT) 11 U/L (7-40) Alkaline Phosphatase 46 U/L (46-116) Aspartate Amino Transferase (AST) 8 U/L (13-40) L Total Bilirubin 0.6 mg/dL (0.2-1.0) Urinalysis Test 12/06/24 08:50 Urine Color Light-yellow (Yellow) Urine Clarity Clear (Clear) Urine pH 6.0 (5.0-9.0) Urine Specific [place] 1.008 (1.001-1.035) Urine Protein Negative (Negative) Urine Ketones Negative (Negative) Urine Blood Negative /uL (Negative) Urine Nitrite Negative (Negative) Urine Bilirubin Negative (Negative) Urine Urobilinogen Normal mg/dL (Negative) Urine Leukocyte Esterase Negative /uL (Negative) Urine RBC 1 /hpf (0 - 4) Urine Microscopic WBC 1 /HPF (0-5) Urine Squamous Epithelial Cells Few /hpf (<5) Urine Bacteria Few /hpf (None Seen) H Urine Glucose Normal mg/dL (Normal) Labs and/or images reviewed: Labs reviewed by me, Image(s) reviewed by me Assessment/Plan Assessment/Plan / - still feeling numbness and weakness in left UE LE. face symptoms numbness is resolved. she feels BL legs are swollen but not on exam. no sensation on LLE. 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 - vanc/ctx. holding off steroids, ampcillin, acyclovir - LP - neuro consult - isolation (airborne, contact) stroke ruled out left body numb weak ? bells palsy - treated as bells from urgency care - steroids, acyclovir TIA possible - neuro tele - thinks its either complex migraine and/or meningitis - mri w/o acute stroke. - q4 neurochecks - carotid u/s pending. consider CTA h/n - abcd score 4 - warrants DAPT + HIS - neuroconsult diet reg dvt - lovenox gi - dimple diet medtele - w isolation full code Plan discussed with: Patient My Orders Orders - BARBARA BRANHAM MD Procedure Category Date Status Time Carotid Duplx W Color US 12/07/24 Resulted DOP 14:14 Vancomycin Per PHA 12/07/24 Verified Pharmacy 19:45 Ceftriaxone Ivpb PHA 12/08/24 Verified Rocephin 09:00 Ceftriaxone Ivpb PHA 12/07/24 Verified Rocephin 19:45 Lumbar Puncture XY 12/07/24 Verified 19:41 Date of Service: Dec 07, 2024 Billing Provider: BARBARA BRANHAM MD Common Visit Codes: [id number] INP/OBS CARE(HIGH) BARBARA BRANHAM MD Dec 07, 2024 19:52
[2024-12-07] MEDS: VANCOMYCIN 1GM/250ML KIT 250 ML IV ONE (20:01)
[2024-12-07] MEDS: cefTRIAXone 1GM/50ML D5W 50 ML IV ONE (20:01)
[2024-12-07] MEDS: traZODone HCL 50 MG TAB PO PRN (21:09)
[2024-12-08] VITALS (8 sets, daily range): BP systolic 98–119; BP diastolic 57–73; PULSE 61–84; RESP 17–20; TEMP 97.8–98.4; O2SAT 93–100
[2024-12-08 06:16] LABS: Basophils # (auto) 0.1 10 ^3/uL (0-0.2); Eosinophils # (auto) 0.4 10 ^3/uL (0-0.8); Eosinophils % (auto) 5.5 % (0.0-7.0); Hematocrit 42.3 % (36.0-46.0); Lymphocytes # (auto) 2.4 10 ^3/uL (0.4-5.4); Lymphocytes % (auto) 29.5 % (10.0-50.0); Mean Corpuscular Hemoglobin 31.7 pg (28.0-32.0); Mean Corpuscular Hgb Conc. 33.2 g/dL (32.0-36.0); Mean Corpuscular Volume 95.7 fL (80.0-100.0); Monocytes # (auto) 0.4 10 ^3/uL (0-1.3); Monocytes % (auto) 5.2 % (0.0-12.0); Neutrophils # (auto) 4.8 10 ^3/uL (1.6-8.6); Neutrophils % (auto) 58.8 % (37.0-80.0); Platelet Count (auto) 214 10^3/uL (140-450); Red Blood Cells 4.42 10^6/uL (4.0-5.20); Red Cell Distribution Width 14.1 % (11.8-14.3); White Blood Cell 8.2 10^3/uL (4.4-10.8)
[2024-12-08 06:41] LABS: Alanine Aminotransferase 13 U/L (7-40); Albumin 3.5 g/dL (3.2-4.8); Alkaline Phosphatase 47 U/L (46-116); Anion Gap 4 (5-15); Calcium 9.3 mg/dL (8.7-10.4); Carbon Dioxide 28 mmol/L (20-31); Glucose 90 mg/dL (74-106); Potassium 4.9 mmol/L (3.5-5.1); Sodium 142 mmol/L (136-145)
[2024-12-08 06:42] LABS: BUN/Creatinine Ratio 10.3 (10.0-20.0)
[2024-12-08 06:43] LABS: Aspartate Aminotransferase 10 U/L (13-40); Blood Urea Nitrogen 9 mg/dL (9-23); Chloride 110 mmol/L (98-107)
[2024-12-08 06:44] LABS: Bilirubin, Total 0.7 mg/dL (0.2-1.0); Total Protein 5.3 g/dL (5.7-8.2)
[2024-12-08] MEDS: cefTRIAXone 1GM/50ML D5W 50 ML IV SCH (08:05)
[2024-12-08] MEDS: VANCOMYCIN 1.25GM/250ML 250 ML IV SCH (14:24)
--- NOTE | 2024-12-08 15:33 | DVHINCON2 ---
Date of service: Dec 08, [address] Chavez Reason for Consultation Evaluation for TIA History of Present Illness Ms. Mar is a 54 years old right-handed female with a history of hypertension, she came to the [facility] on 12/06/2024 with a chief company of left-sided paresthesia and weakness. At this time, she is alert and fully oriented, she provided the following history On 12/06/2024, she woke up with numbness in the left face, neck, arm and the leg, weakness in the left arm and the leg, but otherwise she denies headache, vision changes, chest pain or other problem, her symptoms have had improvement, at that time, she only has mild numbness tingling in the left foot. She was never had similar problem before, she denies a history of stroke, migraine She denies tingling/numbness, weakness in the lower extremities, she denies a history of neck/back pain, but on physical examination, she has bilateral hammertoes and high-arched foot, her deep tendon reflexes were increased, especially in the knees and ankles, but there was no pathologic reflexes in the legs Urinalysis, 12/06/2024: WBC: 1, urine leukocyte esterase: Negative CBC, 12/25/2024: Unremarkable ESR, 12/06/2024: 2 CMP, 12/08/2024: Unremarkable TG/HDL/LDL/HDL, 10/25/2024: 85/155/100/46 TSH, 10/25/2024: 2.07 Carotid Doppler, 12/07/2024: 1. No evidence of hemodynamically significant stenosis within the bilateral carotid arterial systems. 2. Antegrade flow within bilateral vertebral arteries MRI head, 12/06/2024: 1. No evidence of acute intracranial abnormality. No evidence of acute infarct. 2. Nonspecific tiny foci of T2/FLAIR hyperintensity in the subcortical white matter. Findings may be due to mild chronic small- vessel ischemic disease. Other etiologies such as migraine headaches or d emyelinating disease could also have a similar appearance in the appropriate clinical setting. Correlate with clinical findings Past Medical History Hypertension, no Migraine Past Surgical History Left knee surgery Family History: Diabetes mellitus G8 FATHER Family History Diabetes Social History She vapes, but no history of drug or alcohol abuse Allergies: Coded Allergies: Avocado (Verified Allergy, Unknown, 10/24/24) Home Meds Active Scripts Atorvastatin Calcium (Lipitor) 40 Mg Tab, 1 TAB PO QPM, #90 TAB 1 Refill Prov:ROMERO ROSA MD 10/28/24 Sucralfate (CARAFATE) 1 Gm Tab, 1 GM PO BID, #60 TAB Prov:ROMERO ROSA MD 10/28/24 Pantoprazole Sodium Sesquihydr (Pantoprazole Sodium) 40 Mg Tab, 40 MG PO BID, #60 TAB Prov:ROMERO ROSA MD 10/28/24 Reported Medications Tizanidine Hydrochloride (Tizanidine Hcl) 4 Mg Tab, 1 TAB PO 10/24/24 Lisinopril & Hydrochlorothiazi (Lisinopril/Hydrochlorothi) 1 Tab Tab, 1 TAB PO DAILY 10/24/24 Gabapentin (Gabapentin) 300 Mg Cap, CAP PO 10/24/24 Current Medications Current Medications Medications (Trade) Dose Ordered Sig/Tracey Route PRN Reason Start Time Stop Time Status Last Admin Trazodone HCl (Desyrel) 50 mg DAILY PRN PO FOR INSOMNIA 12/07/24 19:45 12/07/24 21:09 Vancomycin HCl 0 ml @ 0 mls/hr UD IV 12/07/24 19:45 Ceftriaxone Sodium 50 ml @ 100 mls/hr DAILY@09 IV 12/08/24 09:00 12/08/24 08:05 Vancomycin HCl 250 ml @ 200 mls/hr Q12H IV 12/08/24 13:00 12/08/24 14:24 Review of Systems As above, the other systems are negative Vital Signs Vital Signs Date Time Temp Pulse Resp B/P (MAP) Pulse Ox O2 Delivery O2 Flow Rate FiO2 12/08/24 14:43 79 18 113/77 12/08/24 13:00 98.2 98 98.2 12/08/24 07:50 Room Air* 0 21 Physical Exam GENERAL EXAM: General: the patient is well developed and nourished. No acute distress. HEENT: Normocephalic, neck is supple, no carotid bruits. No mass. RESPIRATORY: Normal respiratory effort with symmetrical lung expansion. Lungs clear to auscultation. CARDIOVASCULAR: Regular rate and rhythm with no murmurs. S1, S2. ABDOMEN: Soft, nontender, normal bowel sound MUSCULOSKELETAL EXAM: Bilateral hammertoes and high-arched foot No tenderness to palpation in the spine NEUROLOGICAL: MENTAL STATUS: Awake and alert. Oriented to person, place, time and general circumstances. Able to give personal history. SPEECH, LANGUAGE, HIGHER CORTICAL FUNCTION: no aphasia or dysathria. CRANIAL NERVES: #2: Intact visual quinonez to confrontation. The optic discs were sharp. #3,4,6: Pupils are equal, round and reactive. EOMs full and conjugate. No nystagmus. #5: Facial sensation intact in all three divisions bilaterally. Mandibular strength intact. #7: Facial muscles symmetrical and strength intact. #8: Hearing grossly normal to voice. #9,10: Uvula and soft palate rise in the midline. Swallow and voice are normal. #11: Trapezius and sternomastoid strength intact bilaterally. #12: Tongue midline. No fasciculations or atrophy. SENSATION: Sensation to touch and pinprick is normal. MOTOR: Normal tone in the upper and lower extremity. Normal muscle bulk. No fasciculations. No abnormal movements or posturing. Muscle strength of the major groups in the upper extremities is 5/5. Muscle strength of the major groups in the lower extremities is 5/5. REFLEXES: Deep tendon reflexes normal and symmetrical. No pathological reflexes. CEREBELLAR/COORDINATION: Finger to nose is normal bilaterally. GAIT/STATION: deferred. Labs/Diagnostic Data Labs Test 12/08/24 04:51 12/06/24 14:37 12/06/24 09:53 12/06/24 08:50 Range/Units White Blood Count 8.2 # 4.4-10.8 10^3/uL Red Blood Count 4.42 4.0-5.20 10^6/uL Hemoglobin 14.0 12.2-16.2 g/dL Hematocrit 42.3 36.0-46.0 % Mean Corpuscular Volume 95.7 80.0-100.0 fL Mean Corpuscular Hemoglobin 31.7 28.0-32.0 pg Mean Corpuscular Hemoglobin Concent 33.2 32.0-36.0 g/dL Red Cell Distribution Width 14.1 11.8-14.3 % Platelet Count 214 140-450 10^3/uL Mean Platelet Volume 8.1 6.9-10.8 fL Neutrophils (%) (Auto) 58.8 37.0-80.0 % Lymphocytes (%) (Auto) 29.5 10.0-50.0 % Monocytes (%) (Auto) 5.2 0.0-12.0 % Eosinophils (%) (Auto) 5.5 0.0-7.0 % Basophils (%) (Auto) 1.0 0.0-2.0 % Neutrophils # (Auto) 4.8 1.6-8.6 10 ^3/uL Lymphocytes # (Auto) 2.4 0.4-5.4 10 ^3/uL Monocytes # (Auto) 0.4 0-1.3 10 ^3/uL Eosinophils # (Auto) 0.4 0-0.8 10 ^3/uL Basophils # (Auto) 0.1 0-0.2 10 ^3/uL Nucleated Red Blood Cells 0.0 % Sodium Level 142 136-145 mmol/L Potassium Level 4.9 3.5-5.1 mmol/L Chloride Level 110 H 98-107 mmol/L Carbon Dioxide Level 28 20-31 mmol/L Anion Gap 4 L 5-15 Blood Urea Nitrogen 9 9-23 mg/dL Creatinine 0.87 0.550-1.02 mg/dL Glomerular Filtration Rate Calc 79 >90 mL/min BUN/Creatinine Ratio 10.3 10.0-20.0 Serum Glucose 90 74-106 mg/dL Calcium Level 9.3 8.7-10.4 mg/dL Total Bilirubin 0.7 0.2-1.0 mg/dL Aspartate Amino Transferase (AST) 10 L 13-40 U/L Alanine Aminotransferase (ALT) 13 7-40 U/L Alkaline Phosphatase 47 46-116 U/L Total Protein 5.3 L 5.7-8.2 g/dL Albumin 3.5 3.2-4.8 g/dL Erythrocyte Sedimentation Rate 2 0-20 mm/hr Hemoglobin A1c 5.3 <5.7 % A1C Prothrombin Time 11.1 9.3-11.8 sec Prothrombin Time INR 1.05 0.9-1.15 Activated Partial Thromboplast Time 20.2 L 24.5-34.5 SEC Magnesium Level 2.1 1.6-2.6 mg/dL C-Reactive Protein High Sensitivity < 0.02 <1.0 mg/dL Urine Color Light-yellow Yellow Urine Clarity Clear Clear Urine pH 6.0 5.0-9.0 Urine Specific [place] 1.008 1.001-1.035 Urine Protein Negative Negative Urine Ketones Negative Negative Urine Blood Negative Negative /uL Urine Nitrite Negative Negative Urine Bilirubin Negative Negative Urine Urobilinogen Normal Negative mg/dL Urine Leukocyte Esterase Negative Negative /uL Urine RBC 1 0 - 4 /hpf Urine Microscopic WBC 1 0-5 /HPF Urine Squamous Epithelial Cells Few <5 /hpf Urine Bacteria Few H None Seen /hpf Urine Glucose Normal Normal mg/dL Assessment Acute stroke syndrome with unremarkable MRI brain scan Hyperreflexia, to rule out myelopathy High-arched foot, hammertoes, to rule out polyneuropathy Plan/Recommendation Monitoring Supportive treatment Telemetry Vitamin B12, folic acid, SIFE MRI cervical spine MRI thoracic spine Lipitor 40 mg daily More recommendation per clinical course Prognosis: Poor This medical document was created using an electronic medical record system with [employer] dictation system. Although this document has been carefully reviewed, there may still be some phonetic and typographical errors. These areas are purely typographical due to imperfections of the software programs, and do not reflect any compromise in the patient's medical care. Plan discussed with: Patient, Other FRANKLIN OROSCO MD Dec 08, 2024 15:33
[2024-12-08] MEDS ORDERED: LORazepam 2MG/ML-1ML VIAL IV PRN (16:15)
--- NOTE | 2024-12-08 18:02 | DVHPN2 ---
Subjective update /12/07 - still feeling numbness and weakness in left UE LE. face symptoms numbness is resolved. she feels BL legs are swollen but not on exam. no sensation on LLE. 12/08 she is improving today. exam improving. plan for LP tomorrow. on meningitis precaution (air and contact). Larm sens better, L leg now has sensation, motor remains intact as yesterdy Reviewed: H&P Changes from previous H/P or p: No Changes General: Per HPI Objective Vitals Vital Signs Date Time Temp Pulse Resp B/P (MAP) Pulse Ox O2 Delivery O2 Flow Rate FiO2 12/08/24 17:00 98.4 71 20 119/73 (88) 100 98.4 12/08/24 07:50 Room Air* 0 21 Intake/Output Intake and Output 12/08/24 07:00 Intake Total 1435 ml Balance 1435 ml Intake Oral 1435 ml # Voids 4 Exam CN 2-12 intact. face no numbness, sensation low in LUE, sensation absent LLE weak 4/5 LUE, weak 3/5 in LLE B&B intact. AOx4 lungs, card, abd normal exam sarina vasquez neg. Medications Current Medications Medications Dose Ordered Sig/Tracey Route Start Time Stop Time Status Last Admin Dose Admin Pantoprazole Sodium 40 mg BID PO 12/06/24 22:00 12/08/24 08:05 40 MG Sucralfate 1 gm BID PO 12/06/24 22:00 12/08/24 08:05 1 GM Atorvastatin Calcium 40 mg QPM PO 12/06/24 18:00 12/08/24 17:15 40 MG Patient Own Medication 1 tab DAILY PO 12/07/24 10:00 Sodium Chloride 10 ml Q8HR IV 12/06/24 14:00 12/08/24 14:44 10 ML Docusate Sodium 100 mg BIDPRN PRN PO 12/06/24 13:30 Acetaminophen 650 mg Q6HP PRN PO 12/06/24 13:30 Acetaminophen/ Hydrocodone Bitart 1 tab Q4HP PRN PO 12/06/24 13:30 12/06/24 16:18 1 TAB Hydromorphone HCl 0.5 mg Q4HP PRN IV 12/06/24 13:30 12/08/24 14:43 0.5 MG Ondansetron HCl 4 mg Q4HP PRN IV 12/06/24 13:30 Enoxaparin Sodium 40 mg DAILY SC 12/07/24 10:00 12/08/24 08:06 40 MG Trazodone HCl 50 mg DAILY PRN PO 12/07/24 19:45 12/07/24 21:09 50 MG Vancomycin HCl 0 ml @ 0 mls/hr UD IV 12/07/24 19:45 Ceftriaxone Sodium 50 ml @ 100 mls/hr DAILY@09 IV 12/08/24 09:00 12/08/24 08:05 100 MLS/HR Vancomycin HCl 250 ml @ 200 mls/hr Q12H IV 12/08/24 13:00 12/08/24 14:24 200 MLS/HR Lorazepam 1 mg ONCE PRN IV 12/08/24 16:15 12/11/24 16:14 Laboratory Results Laboratory Tests 12/08/24 04:51 Chemistry Test 12/08/24 04:51 Albumin 3.5 g/dL (3.2-4.8) Calcium Level 9.3 mg/dL (8.7-10.4) Total Protein 5.3 g/dL (5.7-8.2) L LFT Test 12/08/24 04:51 Alanine Aminotransferase (ALT) 13 U/L (7-40) Alkaline Phosphatase 47 U/L (46-116) Aspartate Amino Transferase (AST) 10 U/L (13-40) L Total Bilirubin 0.7 mg/dL (0.2-1.0) Urinalysis Test 12/06/24 08:50 Urine Color Light-yellow (Yellow) Urine Clarity Clear (Clear) Urine pH 6.0 (5.0-9.0) Urine Specific [place] 1.008 (1.001-1.035) Urine Protein Negative (Negative) Urine Ketones Negative (Negative) Urine Blood Negative /uL (Negative) Urine Nitrite Negative (Negative) Urine Bilirubin Negative (Negative) Urine Urobilinogen Normal mg/dL (Negative) Urine Leukocyte Esterase Negative /uL (Negative) Urine RBC 1 /hpf (0 - 4) Urine Microscopic WBC 1 /HPF (0-5) Urine Squamous Epithelial Cells Few /hpf (<5) Urine Bacteria Few /hpf (None Seen) H Urine Glucose Normal mg/dL (Normal) Labs and/or images reviewed: Labs reviewed by me, Image(s) reviewed by me Assessment/Plan Assessment/Plan 2/3 she is improving today. exam improving. plan for LP tomorrow. on meningitis precaution (air and contact). Larm sens better, L leg now has sensation, motor remains intact as yesterdy sepsis likely meningitis leukocytosis neutrophilia tachycardia resolved - all info plus tele neuro concern for meningitis. works in [employer]. - vanc/ctx. holding off steroids, ampcillin, acyclovir - LP - neuro consult - isolation (airborne, contact) stroke ruled out left body numb weak ? bells palsy - treated as bells from urgency care - steroids, acyclovir TIA possible - neuro tele - thinks its either complex migraine and/or meningitis - mri w/o acute stroke. - q4 neurochecks - carotid u/s pending. consider CTA h/n - abcd score 4 - warrants DAPT + HIS - neuroconsult diet reg dvt - lovenox gi - dimple diet medtele - w isolation full code Plan discussed with: Patient My Orders Orders - BARBARA BRANHAM MD Procedure Category Date Status Time Vancomycin Per PHA 12/07/24 In Process Pharmacy 19:45 Ceftriaxone 1gm/50ml PHA 12/08/24 In Process D5w (Rocephin) 09:00 Vancomycin PHA 12/08/24 In Process 1.25gm/250ml 13:00 Vancomycin,Trough LAB 12/09/24 Verified 12:00 Vancomycin Per DARRIUS 12/09/24 In Process Pharmacy Protoc 12:00 Lumbar Puncture XY 12/09/24 Logged 08:00 Date of Service: Dec 08, 2024 Billing Provider: BARBARA BRANHAM MD Common Visit Codes: 50933-[id number] INP/OBS CARE(HIGH) BARBARA BRANHAM MD Dec 08, 2024 18:02
[2024-12-08 18:48] LABS: Folate (Folic Acid) 14.08 ng/mL (>5.38)
[2024-12-08] MEDS: ASPirin 81 mg TAB PO ONE (22:15)
[2024-12-09] VITALS (8 sets, daily range): BP systolic 110–130; BP diastolic 64–86; PULSE 67–95; RESP 17–18; TEMP 97.4–98.2; O2SAT 95–100
[2024-12-09] MEDS: PHENYLEPHRINE HCL 10 MG/ML VL ONE (04:31)
[2024-12-09 07:17] LABS: Basophils # (auto) 0 10 ^3/uL (0-0.2); Basophils % (auto) 0.8 % (0.0-2.0); Eosinophils # (auto) 0.5 10 ^3/uL (0-0.8); Eosinophils % (auto) 8.7 % (0.0-7.0); Hematocrit 41.3 % (36.0-46.0); Hemoglobin 13.5 g/dL (12.2-16.2); Lymphocytes # (auto) 2.1 10 ^3/uL (0.4-5.4); Mean Corpuscular Hemoglobin 31.2 pg (28.0-32.0); Mean Corpuscular Hgb Conc. 32.8 g/dL (32.0-36.0); Mean Corpuscular Volume 95.2 fL (80.0-100.0); Monocytes # (auto) 0.4 10 ^3/uL (0-1.3); Monocytes % (auto) 6.1 % (0.0-12.0); Neutrophils # (auto) 2.8 10 ^3/uL (1.6-8.6); Neutrophils % (auto) 48.4 % (37.0-80.0); Nucleated Red Blood Cells % 0.1 %; Platelet Count (auto) 213 10^3/uL (140-450); Red Blood Cells 4.34 10^6/uL (4.0-5.20); Red Cell Distribution Width 13.8 % (11.8-14.3); White Blood Cell 5.9 10^3/uL (4.4-10.8)
[2024-12-09 07:27] LABS: Alanine Aminotransferase 14 U/L (7-40); Albumin 3.3 g/dL (3.2-4.8); Anion Gap 7 (5-15); BUN/Creatinine Ratio 18.6 (10.0-20.0); Blood Urea Nitrogen 13 mg/dL (9-23); Calcium 9.4 mg/dL (8.7-10.4); Carbon Dioxide 27 mmol/L (20-31); Glucose 95 mg/dL (74-106); Potassium 4.4 mmol/L (3.5-5.1); Sodium 142 mmol/L (136-145)
[2024-12-09 07:28] LABS: Bilirubin, Total 0.5 mg/dL (0.2-1.0)
[2024-12-09 07:34] LABS: Alkaline Phosphatase 45 U/L (46-116); Aspartate Aminotransferase 10 U/L (13-40); Chloride 108 mmol/L (98-107); Total Protein 5.3 g/dL (5.7-8.2)
--- NOTE | 2024-12-09 08:49 | DVHPN2 ---
Progress Note - Dictate Date Seen: Dec 09, 2024 Medical Necessity Reason Pt with a Central, PICC or Fol: No vital signs Vital Sign Date Time Temp Pulse Resp B/P (MAP) Pulse Ox O2 Delivery O2 Flow Rate FiO2 12/09/24 05:00 97.7 67 17 112/64 (80) 100 97.7 12/08/24 20:00 Room Air* 0 21 Total Intake and Output 12/08/24 12/08/24 12/09/24 15:00 23:00 07:00 Intake Total 50 ml 850 ml 650 ml Output Total 1 ml Balance 50 ml 849 ml 650 ml medications Current Medications Medications Dose Ordered Sig/Tracey Route Start Time Stop Time Status Last Admin Dose Admin Pantoprazole Sodium 40 mg BID PO 12/06/24 22:00 12/08/24 21:36 40 MG Sucralfate 1 gm BID PO 12/06/24 22:00 12/08/24 21:36 1 GM Atorvastatin Calcium 40 mg QPM PO 12/06/24 18:00 12/08/24 17:15 40 MG Patient Own Medication 1 tab DAILY PO 12/07/24 10:00 Sodium Chloride 10 ml Q8HR IV 12/06/24 14:00 12/09/24 06:06 10 ML Docusate Sodium 100 mg BIDPRN PRN PO 12/06/24 13:30 Acetaminophen 650 mg Q6HP PRN PO 12/06/24 13:30 Acetaminophen/ Hydrocodone Bitart 1 tab Q4HP PRN PO 12/06/24 13:30 12/06/24 16:18 1 TAB Hydromorphone HCl 0.5 mg Q4HP PRN IV 12/06/24 13:30 12/08/24 21:42 0.5 MG Ondansetron HCl 4 mg Q4HP PRN IV 12/06/24 13:30 Enoxaparin Sodium 40 mg DAILY SC 12/07/24 10:00 12/08/24 08:06 40 MG Trazodone HCl 50 mg DAILY PRN PO 12/07/24 19:45 12/07/24 21:09 50 MG Vancomycin HCl 0 ml @ 0 mls/hr UD IV 12/07/24 19:45 Ceftriaxone Sodium 50 ml @ 100 mls/hr DAILY@09 IV 12/08/24 09:00 12/08/24 08:05 100 MLS/HR Vancomycin HCl 250 ml @ 200 mls/hr Q12H IV 12/08/24 13:00 12/09/24 01:56 200 MLS/HR Lorazepam 1 mg ONCE PRN IV 12/08/24 16:15 12/11/24 16:14 Aspirin 81 mg DAILY PO 12/09/24 10:00 objective General Appearance: alert, no distress HEENT: EOMI, PERRLA, normal external inspect of ears, no icterus, no nasal drainage Neck: no carotid bruit, no jugular venous distention (JVD), no lymphadenopathy Chest: normal thorax Respiratory: clear to auscultation, normal air movement Cardiovascular: regular rate and rhythm, no diastolic murmur, no jugular venous distention (JVD), no rub, no systolic murmur Abdominal: soft, no hepatomegaly, no mass, no splenomegaly, no tenderness Genitourinary: grossly normal external Musculoskeletal: no joint tenderness, no swelling Extremities: normal pulses, no calf tenderness, no clubbing, no cyanosis, no edema Skin: no bruising, no jaundice, no rash Neurological: alert, No focal deficit laboratory and microbiology Laboratory Tests 12/09/24 05:15 Test 12/09/24 05:15 Range/Units Serum Glucose 95 74-106 mg/dL Problem List 1. Left sided weakness Monitor, r/o TIA, CVA, neurology consult, check lipid panel, check Hgb A1C, [employer] eval, MRI brain, r/o meningitis, plan for lumbar puncture 2. Paresthesia left side of face Monitor, r/o TIA, CVA, neurology consult 3. Smoker Monitor, PPI, DVT prophylaxis 4. Migraine Monitor, MRI brain, neurology consult Assessment/Plan Subjective Patient is awake and alert. Objective Patient was admitted for strokelike symptoms. Patient continued to have paresthesia to the left side of her face and weakness to her left arm and left leg. MRI is negative for CVA. Patient was seen and evaluated by neurology. They are considering possible side effect of the migraine. Patient states she had a headache on Sunday and Sunday and states she does not normally have a history of migraine. Patient is complaining of sensitivity and possible infection to her mouth specifically the left lower jaw. Patient also states she had an earache and was seen at Dr. Sy office and stated her ear drum was red and swollen. Plan Continue antibiotics with vancomycin and Rocephin. Waiting on ID evaluation. A lumbar puncture is scheduled for tomorrow to rule out meningitis. White blood cell count was 18 on admission however it has now normalized. No signs of fever however patient states she had periods of flushing at home and she thought it was possibly menopause. UA shows few bacteria. Chest x-ray has no acute process. MRI of the T-spine is pending. Plan discussed with: Patient, Other FAUSTINO COHEN NP Dec 09, 2024 08:49
--- NOTE | 2024-12-09 09:24 | DVHPN2 ---
Progress Note - Dictate Date Seen: Dec 09, 2024 Medical Necessity Reason Pt with a Central, PICC or Fol: No Subjective Ms. Mar is a 54 years old right-handed female with a history of hypertension, she came to the [facility] on 12/06/2024 with a chief company of left-sided paresthesia and weakness. I have seen examined the patient I have discussed with hers nurse, no head, Remote headache, / on Sunday and Sunday. She has not after she came to the hospital. She had chills, hot flush at home She had 1 dose of [place] 5/325 on 12/06/2024, on Dilaudid two, three doses of Dilaudid on 12/08/2024 and another 3 doses on Dilaudid 12/09/24 Urinalysis, 12/06/2024: WBC: 1, urine leukocyte esterase: Negative CBC, 12/25/2024: Unremarkable ESR, 12/06/2024: 2 HGB A1c, 12/06/2024: 5.3 CMP, 12/08/2024: Unremarkable TG/HDL/LDL/HDL, 10/25/2024: 85/155/100/46 Vitamin B12, 12/08/2024: 347 Folic acid, 12/08/2024: 14.08 TSH, 10/25/2024: 2.07 Carotid Doppler, 12/07/2024: 1. No evidence of hemodynamically significant stenosis within the bilateral carotid arterial systems. 2. Antegrade flow within bilateral vertebral arteries MRI head, 12/06/2024: 1. No evidence of acute intracranial abnormality. No evidence of acute infarct. 2. Nonspecific tiny foci of T2/FLAIR hyperintensity in the subcortical white matter. Findings may be due to mild chronic small- vessel ischemic disease. Other etiologies such as migraine headaches or demyelinating disease could also have a similar appearance in the appropriate clinical setting. Correlate with clinical findings vital signs Vital Sign Date Time Temp Pulse Resp B/P (MAP) Pulse Ox O2 Delivery O2 Flow Rate FiO2 12/09/24 05:00 97.7 67 17 112/64 (80) 100 97.7 12/08/24 20:00 Room Air* 0 21 Total Intake and Output 12/08/24 12/08/24 12/09/24 15:00 23:00 07:00 Intake Total 50 ml 850 ml 650 ml Output Total 1 ml Balance 50 ml 849 ml 650 ml medications Current Medications Medications Dose Ordered Sig/Tracey Route Start Time Stop Time Status Last Admin Dose Admin Pantoprazole Sodium 40 mg BID PO 12/06/24 22:00 12/08/24 21:36 40 MG Sucralfate 1 gm BID PO 12/06/24 22:00 12/08/24 21:36 1 GM Atorvastatin Calcium 40 mg QPM PO 12/06/24 18:00 12/08/24 17:15 40 MG Patient Own Medication 1 tab DAILY PO 12/07/24 10:00 Sodium Chloride 10 ml Q8HR IV 12/06/24 14:00 12/09/24 06:06 10 ML Docusate Sodium 100 mg BIDPRN PRN PO 12/06/24 13:30 Acetaminophen 650 mg Q6HP PRN PO 12/06/24 13:30 Acetaminophen/ Hydrocodone Bitart 1 tab Q4HP PRN PO 12/06/24 13:30 12/06/24 16:18 1 TAB Hydromorphone HCl 0.5 mg Q4HP PRN IV 12/06/24 13:30 12/08/24 21:42 0.5 MG Ondansetron HCl 4 mg Q4HP PRN IV 12/06/24 13:30 Enoxaparin Sodium 40 mg DAILY SC 12/07/24 10:00 12/08/24 08:06 40 MG Trazodone HCl 50 mg DAILY PRN PO 12/07/24 19:45 12/07/24 21:09 50 MG Vancomycin HCl 0 ml @ 0 mls/hr UD IV 12/07/24 19:45 Ceftriaxone Sodium 50 ml @ 100 mls/hr DAILY@09 IV 12/08/24 09:00 12/08/24 08:05 100 MLS/HR Vancomycin HCl 250 ml @ 200 mls/hr Q12H IV 12/08/24 13:00 12/09/24 01:56 200 MLS/HR Lorazepam 1 mg ONCE PRN IV 12/08/24 16:15 12/11/24 16:14 Aspirin 81 mg DAILY PO 12/09/24 10:00 objective General: the patient is well developed and nourished. No acute distress. MUSCULOSKELETAL EXAM: Bilateral hammertoes and high-arched foot No tenderness to palpation in the spine MENTAL STATUS: Awake and alert. Oriented to person, place, time and general circumstances. Able to give personal history. SPEECH, LANGUAGE, HIGHER CORTICAL FUNCTION: no aphasia or dysathria. CRANIAL NERVES: Pupils are equal, round and reactive. EOMs full and conjugate. No nystagmus. Facial sensation intact in all three divisions bilaterally. Mandibular strength intact. Facial muscles symmetrical and strength intact. Tongue midline. No fasciculations or atrophy. SENSATION: Sensation to touch and pinprick is normal. MOTOR: Normal tone in the upper and lower extremity. Normal muscle bulk. No fasciculations. No abnormal movements or posturing. Muscle strength of the major groups in the extremities is 5/5. REFLEXES: Deep tendon reflexes normal and symmetrical. No pathological reflexes. CEREBELLAR/COORDINATION: Finger to nose is normal bilaterally. GAIT/STATION: deferred. laboratory and microbiology Laboratory Tests 12/09/24 05:15 Test 12/09/24 05:15 Range/Units Serum Glucose 95 74-106 mg/dL Problem List Acute stroke syndrome with unremarkable MRI brain scan Hyperreflexia, to rule out myelopathy High-arched foot, hammertoes, to rule out polyneuropathy ? Meningitis Assessment/Plan Monitoring Supportive treatment Telemetry SIFE MRI cervical spine MRI thoracic spine Lipitor 40 mg daily Infectious disease Re: Rule out meningitis More recommendation per clinical course This medical document was created using an electronic medical record system with [employer] dictation system. Although this document has been carefully reviewed, there may still be some phonetic and typographical errors. These areas are purely typographical due to imperfections of the software programs, and do not reflect any compromise in the patient's medical care. Prognosis poor Plan discussed with: Patient, Other Critical Care Time(min): 40 FRANKLIN OROSCO MD Dec 09, 2024 09:24
[2024-12-09] MEDS: ASPirin 81 mg TAB PO SCH (10:40)
[2024-12-09] MEDS: DOCUSATE SOD 100 MG CAP PO PRN (10:40)
--- NOTE | 2024-12-09 14:58 | DVHPN2 ---
Subjective update 12/09 12/07 - still feeling numbness and weakness in left UE LE. face symptoms numbness is resolved. she feels BL legs are swollen but not on exam. no sensation on LLE. 12/08 she is improving today. exam improving. plan for LP tomorrow. on meningitis precaution (air and contact). Larm sens better, L leg now has sensation, motor remains intact as yesterdy 12/09 - today L face numbness, L LE numb resolved. continuing abx. LP tomorrow. neurology following and updated/aware Reviewed: H&P Changes from previous H/P or p: No Changes General: Per HPI Objective Vitals Vital Signs Date Time Temp Pulse Resp B/P (MAP) Pulse Ox O2 Delivery O2 Flow Rate FiO2 12/09/24 13:00 98.2 67 18 130/74 (92) 99 98.2 12/09/24 08:10 Room Air* 0 21 Intake/Output Intake and Output 12/09/24 07:00 Intake Total 1550 ml Output Total 1 ml Balance 1549 ml Intake Oral 1250 ml IV Total 300 ml Output Stool Total 1 ml # Voids 5 Exam CN 2-12 intact. face no numbness, L face numbness, L LE numb resolved. weak 4/5 LUE, weak 3/5 in LLE B&B intact. AOx4 lungs, card, abd normal exam sarina vasquez neg. Medications Current Medications Medications Dose Ordered Sig/Tracey Route Start Time Stop Time Status Last Admin Dose Admin Pantoprazole Sodium 40 mg BID PO 12/06/24 22:00 12/09/24 10:40 40 MG Sucralfate 1 gm BID PO 12/06/24 22:00 12/09/24 10:40 1 GM Atorvastatin Calcium 40 mg QPM PO 12/06/24 18:00 12/08/24 17:15 40 MG Patient Own Medication 1 tab DAILY PO 12/07/24 10:00 Sodium Chloride 10 ml Q8HR IV 12/06/24 14:00 12/09/24 06:06 10 ML Docusate Sodium 100 mg BIDPRN PRN PO 12/06/24 13:30 12/09/24 10:40 100 MG Acetaminophen 650 mg Q6HP PRN PO 12/06/24 13:30 Acetaminophen/ Hydrocodone Bitart 1 tab Q4HP PRN PO 12/06/24 13:30 12/06/24 16:18 1 TAB Hydromorphone HCl 0.5 mg Q4HP PRN IV 12/06/24 13:30 12/09/24 11:03 0.5 MG Ondansetron HCl 4 mg Q4HP PRN IV 12/06/24 13:30 Enoxaparin Sodium 40 mg DAILY SC 12/07/24 10:00 12/09/24 10:40 40 MG Trazodone HCl 50 mg DAILY PRN PO 12/07/24 19:45 12/07/24 21:09 50 MG Vancomycin HCl 0 ml @ 0 mls/hr UD IV 12/07/24 19:45 Ceftriaxone Sodium 50 ml @ 100 mls/hr DAILY@09 IV 12/08/24 09:00 12/09/24 10:39 100 MLS/HR Vancomycin HCl 250 ml @ 200 mls/hr Q12H IV 12/08/24 13:00 12/09/24 13:49 200 MLS/HR Lorazepam 1 mg ONCE PRN IV 12/08/24 16:15 12/11/24 16:14 Aspirin 81 mg DAILY PO 12/09/24 10:00 12/09/24 10:40 81 MG Laboratory Results Laboratory Tests 12/09/24 05:15 Chemistry Test 12/08/24 17:50 12/09/24 05:15 Albumin Pending 3.3 g/dL (3.2-4.8) Albumin/Globulin Ratio Pending Total Protein Pending 5.3 g/dL (5.7-8.2) L Calcium Level 9.4 mg/dL (8.7-10.4) LFT Test 12/09/24 05:15 Alanine Aminotransferase (ALT) 14 U/L (7-40) Alkaline Phosphatase 45 U/L (46-116) L Aspartate Amino Transferase (AST) 10 U/L (13-40) L Total Bilirubin 0.5 mg/dL (0.2-1.0) Urinalysis Test 12/06/24 08:50 Urine Color Light-yellow (Yellow) Urine Clarity Clear (Clear) Urine pH 6.0 (5.0-9.0) Urine Specific [place] 1.008 (1.001-1.035) Urine Protein Negative (Negative) Urine Ketones Negative (Negative) Urine Blood Negative /uL (Negative) Urine Nitrite Negative (Negative) Urine Bilirubin Negative (Negative) Urine Urobilinogen Normal mg/dL (Negative) Urine Leukocyte Esterase Negative /uL (Negative) Urine RBC 1 /hpf (0 - 4) Urine Microscopic WBC 1 /HPF (0-5) Urine Squamous Epithelial Cells Few /hpf (<5) Urine Bacteria Few /hpf (None Seen) H Urine Glucose Normal mg/dL (Normal) Labs and/or images reviewed: Labs reviewed by me, Image(s) reviewed by me Assessment/Plan Assessment/Plan 12/09 - today L face numbness, L LE numb resolved. continuing abx. LP tomorrow. neurology following and updated/aware sepsis likely meningitis leukocytosis neutrophilia tachycardia resolved - all info plus tele neuro concern for meningitis. works in [employer]. - vanc/ctx. holding off steroids, ampcillin, acyclovir - LP - neuro consult - isolation (airborne, contact) stroke ruled out left body numb weak ? bells palsy - treated as bells from urgency care - steroids, acyclovir TIA possible - neuro tele - thinks its either complex migraine and/or meningitis - mri w/o acute stroke. - q4 neurochecks - carotid u/s pending. consider CTA h/n - abcd score 4 - warrants DAPT + HIS - neuroconsult diet reg dvt - lovenox gi - dimple diet medtele - w isolation full code Plan discussed with: Patient My Orders Orders - BARBARA BRANHAM MD Procedure Category Date Status Time Aspirin Tablet PHA 12/09/24 In Process 10:00 Date of Service: Dec 09, 2024 Billing Provider: BARBARA BRANHAM MD Common Visit Codes: [id number] INP/OBS CARE(HIGH) BARBARA BRANHAM MD Dec 09, 2024 14:58
--- NOTE | 2024-12-09 20:16 | DVHINCON2 ---
LAVERNE POST RESIDENT 12/09/24 2016: Date of service: Dec 09, [address] Hopkins Reason for Consultation ? Meningitis History of Present Illness Patient is 54-year-old female with past medical history of hypertension who came to the hospital with a chief complaint of left-sided face swelling, numbness which progressed to left upper extremity tingling sensation and left lower extremity tingling sensation associated with frontal headache. Patient also complaining of neck pain at the time of hospitalization admission on 12/06/2024. As per patient onset of symptoms started on last . As per patient she never felt similar kind of symptoms before. Given possible stroke/TIA, patient underwent CT scan of head which showed no acute intracranial abnormality, MRI brain which showed mild chronic small vessel disease, no acute stroke. Tele neurology consultation was done which ruled out acute stroke however differential were made about possibility of meningitis given neck pain elevated white count and headache. She initiated on ceftriaxone and vancomycin. Over the course of hospitalization patient neck pain, headache improved. However patient continued to have tingling sensation or upper extremity and facial swelling. Patient has history of tooth infection previously, possibility of two on the infection can not be ruled out as well. The time of evaluation, patient denied fever, chills, neck pain, chest pain, shortness of breath, sputum production, abdominal pain, diarrhea, dysuria, muscular weakness, any other neurological symptoms. Past medical history: Hypertension on lisinopril Past surgical history: Left knee multiple surgeries, breast implantation. Allergies: Avocado, no medication allergy. Social history: Patient denied use of any recreational drugs, nonsmoker, no alcohol use. Travel history: No recent travel history, lives with family, contacts with inmates. Family History: Diabetes mellitus G8 FATHER Allergies: Coded Allergies: Avocado (Verified Allergy, Unknown, 10/24/24) Home Meds Active Scripts Amoxicillin & Pot Clavulanate (Augmentin) 500 Mg Tab, 1 TAB PO BID, #14 TAB Prov:FAUSTINO COHEN PLEAT PATTERN[employer]ER 12/12/24 Atorvastatin Calcium (Lipitor) 40 Mg Tab, 1 TAB PO QPM, #90 TAB 1 Refill Prov:ROMERO ROSA MD 10/28/24 Sucralfate (CARAFATE) 1 Gm Tab, 1 GM PO BID, #60 TAB Prov:ROMERO ROSA MD 10/28/24 Pantoprazole Sodium Sesquihydr (Pantoprazole Sodium) 40 Mg Tab, 40 MG PO BID, #60 TAB Prov:ROMERO ROSA Noe PATEL 10/28/24 Reported Medications Tizanidine Hydrochloride (Tizanidine Hcl) 4 Mg Tab, 1 TAB PO 10/24/24 Lisinopril & Hydrochlorothiazi (Lisinopril/Hydrochlorothi) 1 Tab Tab, 1 TAB PO DAILY 10/24/24 Gabapentin (Gabapentin) 300 Mg Cap, CAP PO 10/24/24 Current Medications Current Medications Medications (Trade) Dose Ordered Sig/Tracey Route PRN Reason Start Time Stop Time Status Last Admin Aspirin 81 mg DAILY PO 12/09/24 10:00 12/09/24 10:40 Review of Systems Patient complaining of left-sided upper extremity tingling sensation and left- sided lower extremity tingling sensation with mild swelling of left-sided face. Vital Signs Vital Signs Date Time Temp Pulse Resp B/P (MAP) Pulse Ox O2 Delivery O2 Flow Rate FiO2 12/09/24 17:00 97.4 73 18 118/74 (89) 95 97.4 12/09/24 08:10 Room Air* 0 21 Physical Exam General Appearance: Cooperative. Well developed. Well nourished. NAD Head Exam: Normal inspection Neck Exam: Normal inspection. Non-tender. Normal alignment Pulmonary/Respiratory: Chest non-tender. Clear bilateral breath sounds Cardiovascular/Chest: Regular rate and rhythm. No murmurs. No JVD. Peripheral Pulses: 2+ Radial (R). 2+ Radial (L). 2+ Pedal (R). 2+ Pedal (L) Abdominal Exam: Normal bowel sounds. Soft. Nontender. No hepatospenomegaly. No masses Ankle Exam: Negative ankle edema Lower extremities: Negative lower extremity edema Neuro/Mental Status: A&O x4. Coherent Thoughts/Psych: Normal thought pattern. Appropriate mood and affect. Good judgement and insight Appearance: In no acute distress Skin Exam: Normal inspection. Normal color. Warm. Dry Labs/Diagnostic Data Labs Test 12/09/24 12:00 12/09/24 05:15 12/08/24 17:50 12/06/24 14:37 Range/Units Vancomycin Level Trough 12.3 H 5-10 ug/mL White Blood Count 5.9 # 4.4-10.8 10^3/uL Red Blood Count 4.34 4.0-5.20 10^6/uL Hemoglobin 13.5 12.2-16.2 g/dL Hematocrit 41.3 36.0-46.0 % Mean Corpuscular Volume 95.2 80.0-100.0 fL Mean Corpuscular Hemoglobin 31.2 28.0-32.0 pg Mean Corpuscular Hemoglobin Concent 32.8 32.0-36.0 g/dL Red Cell Distribution Width 13.8 11.8-14.3 % Platelet Count 213 140-450 10^3/uL Mean Platelet Volume 8.4 6.9-10.8 fL Neutrophils (%) (Auto) 48.4 37.0-80.0 % Lymphocytes (%) (Auto) 36.0 10.0-50.0 % Monocytes (%) (Auto) 6.1 0.0-12.0 % Eosinophils (%) (Auto) 8.7 H 0.0-7.0 % Basophils (%) (Auto) 0.8 0.0-2.0 % Neutrophils # (Auto) 2.8 1.6-8.6 10 ^3/uL Lymphocytes # (Auto) 2.1 0.4-5.4 10 ^3/uL Monocytes # (Auto) 0.4 0-1.3 10 ^3/uL Eosinophils # (Auto) 0.5 0-0.8 10 ^3/uL Basophils # (Auto) 0 0-0.2 10 ^3/uL Nucleated Red Blood Cells 0.1 % Sodium Level 142 136-145 mmol/L Potassium Level 4.4 3.5-5.1 mmol/L Chloride Level 108 H 98-107 mmol/L Carbon Dioxide Level 27 20-31 mmol/L Anion Gap 7 5-15 Blood Urea Nitrogen 13 9-23 mg/dL Creatinine 0.70 0.550-1.02 mg/dL Glomerular Filtration Rate Calc 102 >90 mL/min BUN/Creatinine Ratio 18.6 10.0-20.0 Serum Glucose 95 74-106 mg/dL Calcium Level 9.4 8.7-10.4 mg/dL Total Bilirubin 0.5 0.2-1.0 mg/dL Aspartate Amino Transferase (AST) 10 L 13-40 U/L Alanine Aminotransferase (ALT) 14 7-40 U/L Alkaline Phosphatase 45 L 46-116 U/L Total Protein 5.3 L 5.7-8.2 g/dL Albumin 3.3 3.2-4.8 g/dL Vitamin B12 Level 347 211-911 pg/mL Folic Acid 14.08 >5.38 ng/mL Erythrocyte Sedimentation Rate 2 0-20 mm/hr Hemoglobin A1c 5.3 <5.7 % A1C Test 12/06/24 09:53 12/06/24 08:50 Range/Units Prothrombin Time 11.1 9.3-11.8 sec Prothrombin Time INR 1.05 0.9-1.15 Activated Partial Thromboplast Time 20.2 L 24.5-34.5 SEC Magnesium Level 2.1 1.6-2.6 mg/dL C-Reactive Protein High Sensitivity < 0.02 <1.0 mg/dL Urine Color Light-yellow Yellow Urine Clarity Clear Clear Urine pH 6.0 5.0-9.0 Urine Specific [place] 1.008 1.001-1.035 Urine Protein Negative Negative Urine Ketones Negative Negative Urine Blood Negative Negative /uL Urine Nitrite Negative Negative Urine Bilirubin Negative Negative Urine Urobilinogen Normal Negative mg/dL Urine Leukocyte Esterase Negative Negative /uL Urine RBC 1 0 - 4 /hpf Urine Microscopic WBC 1 0-5 /HPF Urine Squamous Epithelial Cells Few <5 /hpf Urine Bacteria Few H None Seen /hpf Urine Glucose Normal Normal mg/dL Assessment Sepsis with unknown source of infection Low probability of meningitis Lower tooth infection possibility of abscess Possible TIA Leukocytosis: Improved Neutrophilia Obesity Plan/recommendation Dr. Gill -Low probability of meningitis given normotensive, alert oriented to time place and person, never been altered before, no nuchal rigidity, improvement of neck pain and headache. Possibility of migraine can not be ruled out. -If lumbar puncture is scheduled, he would like to get it done CSF glucose, protein, cell count, bacterial and fungal culture, AFP. -CT scan of head and neck with contrast for possibility of abscess. -Continue IV antibiotic with ceftriaxone vancomycin at this point. Can stopped antibiotic if CT scan of head and neck is negative. -Discontinue isolation given patient already received two days of IV antibiotic ceftriaxone. -Pending TB QuantiFERON gold. -Neurology consultation -Rest of management as per primary care team. Plan discussed with: Patient, Other (RN) SHERIDAN GILL MD 12/12/24 2328: Family History: Diabetes mellitus G8 FATHER Allergies: Coded Allergies: Avocado (Verified Allergy, Unknown, 10/24/24) Home Meds Active Scripts Amoxicillin & Pot Clavulanate (Augmentin) 500 Mg Tab, 1 TAB PO BID, #14 TAB Prov:NELLY COHENILA Noe PLEAT PATTERN[employer]ER 12/12/24 Atorvastatin Calcium (Lipitor) 40 Mg Tab, 1 TAB PO QPM, #90 TAB 1 Refill Prov:ROMERO ROSA MD 10/28/24 Sucralfate (CARAFATE) 1 Gm Tab, 1 GM PO BID, #60 TAB Prov:ROMERO ROSA MD 10/28/24 Pantoprazole Sodium Sesquihydr (Pantoprazole Sodium) 40 Mg Tab, 40 MG PO BID, #60 TAB Prov:ROMERO ROSA MD 10/28/24 Reported Medications Tizanidine Hydrochloride (Tizanidine Hcl) 4 Mg Tab, 1 TAB PO 10/24/24 Lisinopril & Hydrochlorothiazi (Lisinopril/Hydrochlorothi) 1 Tab Tab, 1 TAB PO DAILY 10/24/24 Gabapentin (Gabapentin) 300 Mg Cap, CAP PO 10/24/24 Assessment Attending Addendum: Case discussed with Dr. Post. at the time of visit. Seen by Dr Post and reviewed assessment and plan . Patient is a 54 year old female with a past medical history of hypertension who presents with left sided face swelling , numbness , left upper and lower extremity tingling sensation associated with funnel headache. Shes been admitted since 11/05 with onset symptoms prior to . Ct head to evaluate for stroke with no acute intercranial abnormalities seen as well as MRI with no acute stroke . Teleneurology consultation was doen and in the setting of leukocytosis there was concern that patient may have meningitis . patient endorses neck pain. Is currently on vancom ycin and ceftriaxone . Patient has history of tooth infection history but tooth doesnt seem to bother her terribly unless she easts . Most recent surgery include breast implantation and left kneee surgery . She has no other notable medical histories, patient is Afebrile and on room air , temp 97.4 and has full sensation and mobility of right upper and lower extremity . she notes numbness of face over palpation and mouth exam shows a good dentation with no obvious abscess or dental carries . Hemoglobin A1C was 5.3 and whitecount is 8.2 . Patient shows no facial droop . Given clinical finding and lack of lab finding consistent with sepsis have a low suspicion for menegitis at this time . if lumbar puncture is to be done for non infectious reason would recommend fungal culture , protient solf count , AFB and fungal culture . would do a Ct of maxial facial with contrast to rule out local abscess. continue ceftriaxone and vancomycin but if Ct shows no abscess would discontinue antibiotics and observe clinically. Clinical findings was reviewed with Dr. Post, 12 point system is consistent with above and assessment and plan was reviewed with Dr. Post and both in agreement. LAVERNE POST RESIDENT Dec 09, 2024 20:16 SHERIDAN GILL MD Dec 12, 2024 23:28
[2024-12-10] VITALS (8 sets, daily range): BP systolic 94–118; BP diastolic 58–73; PULSE 70–87; RESP 16–19; TEMP 97.6–97.9; O2SAT 93–98
[2024-12-10 07:36] LABS: Alanine Aminotransferase 22 U/L (7-40); Alkaline Phosphatase 57 U/L (46-116); Anion Gap 7 (5-15); Aspartate Aminotransferase 16 U/L (13-40); BUN/Creatinine Ratio 17.6 (10.0-20.0); Bilirubin, Total 0.5 mg/dL (0.2-1.0); Blood Urea Nitrogen 13 mg/dL (9-23); Calcium 9.9 mg/dL (8.7-10.4); Carbon Dioxide 27 mmol/L (20-31); Chloride 107 mmol/L (98-107); Glucose 100 mg/dL (74-106); Potassium 4.4 mmol/L (3.5-5.1); Sodium 141 mmol/L (136-145); Total Protein 5.8 g/dL (5.7-8.2)
[2024-12-10 07:42] LABS: Basophils # (auto) 0 10 ^3/uL (0-0.2); Basophils % (auto) 0.5 % (0.0-2.0); Eosinophils # (auto) 0.5 10 ^3/uL (0-0.8); Eosinophils % (auto) 6.6 % (0.0-7.0); Hemoglobin 14.9 g/dL (12.2-16.2); Lymphocytes # (auto) 2.6 10 ^3/uL (0.4-5.4); Lymphocytes % (auto) 37.7 % (10.0-50.0); Mean Corpuscular Hemoglobin 31.6 pg (28.0-32.0); Mean Corpuscular Hgb Conc. 33.8 g/dL (32.0-36.0); Mean Corpuscular Volume 93.6 fL (80.0-100.0); Monocytes # (auto) 0.4 10 ^3/uL (0-1.3); Monocytes % (auto) 6.1 % (0.0-12.0); Neutrophils # (auto) 3.5 10 ^3/uL (1.6-8.6); Neutrophils % (auto) 49.1 % (37.0-80.0); Nucleated Red Blood Cells % 0.1 %; Platelet Count (auto) 222 10^3/uL (140-450); Red Cell Distribution Width 13.5 % (11.8-14.3)
--- NOTE | 2024-12-10 12:29 | DVHPN2 ---
Progress Note - Dictate Date Seen: Dec 10, 2024 Medical Necessity Reason Pt with a Central, PICC or Fol: No vital signs Vital Sign Date Time Temp Pulse Resp B/P (MAP) Pulse Ox O2 Delivery O2 Flow Rate FiO2 12/10/24 11:43 97.6 74 19 97/58 (71) 93 97.6 12/10/24 08:05 Room Air* 0 21 Total Intake and Output 12/09/24 12/09/24 12/10/24 15:00 23:00 07:00 Intake Total 300 ml 604 ml 1050 ml Balance 300 ml 604 ml 1050 ml medications Current Medications Medications Dose Ordered Sig/Tracey Route Start Time Stop Time Status Last Admin Dose Admin Pantoprazole Sodium 40 mg BID PO 12/06/24 22:00 12/10/24 10:35 40 MG Sucralfate 1 gm BID PO 12/06/24 22:00 12/10/24 10:35 1 GM Atorvastatin Calcium 40 mg QPM PO 12/06/24 18:00 12/09/24 17:40 40 MG Patient Own Medication 1 tab DAILY PO 12/07/24 10:00 Sodium Chloride 10 ml Q8HR IV 12/06/24 14:00 12/10/24 07:01 10 ML Docusate Sodium 100 mg BIDPRN PRN PO 12/06/24 13:30 12/10/24 10:34 100 MG Acetaminophen 650 mg Q6HP PRN PO 12/06/24 13:30 Acetaminophen/ Hydrocodone Bitart 1 tab Q4HP PRN PO 12/06/24 13:30 12/10/24 10:38 1 TAB Hydromorphone HCl 0.5 mg Q4HP PRN IV 12/06/24 13:30 12/10/24 02:38 0.5 MG Ondansetron HCl 4 mg Q4HP PRN IV 12/06/24 13:30 Enoxaparin Sodium 40 mg DAILY SC 12/07/24 10:00 12/10/24 10:36 40 MG Trazodone HCl 50 mg DAILY PRN PO 12/07/24 19:45 12/09/24 23:30 50 MG Vancomycin HCl 0 ml @ 0 mls/hr UD IV 12/07/24 19:45 Ceftriaxone Sodium 50 ml @ 100 mls/hr DAILY@09 IV 12/08/24 09:00 12/10/24 08:35 100 MLS/HR Vancomycin HCl 250 ml @ 200 mls/hr Q12H IV 12/08/24 13:00 12/10/24 01:56 200 MLS/HR Lorazepam 1 mg ONCE PRN IV 12/08/24 16:15 12/11/24 16:14 Aspirin 81 mg DAILY PO 12/09/24 10:00 12/10/24 10:35 81 MG objective General Appearance: alert, no distress HEENT: EOMI, PERRLA, normal external inspect of ears, no icterus, no nasal drainage Neck: no carotid bruit, no jugular venous distention (JVD), no lymphadenopathy Chest: normal thorax Respiratory: clear to auscultation, normal air movement Cardiovascular: regular rate and rhythm, no diastolic murmur, no jugular venous distention (JVD), no rub, no systolic murmur Abdominal: soft, no hepatomegaly, no mass, no splenomegaly, no tenderness Genitourinary: grossly normal external Musculoskeletal: no joint tenderness, no swelling Extremities: normal pulses, no calf tenderness, no clubbing, no cyanosis, no edema Skin: no bruising, no jaundice, no rash Neurological: alert, No focal deficit laboratory and microbiology Laboratory Tests 12/10/24 06:50 Test 12/10/24 06:50 Range/Units Serum Glucose 100 74-106 mg/dL Problem List 1. Left sided weakness Monitor, r/o TIA, CVA, neurology consult, check lipid panel, check Hgb A1C, SOFTWARE COMPUTER SPECIALIST eval, MRI brain, r/o meningitis, plan for lumbar puncture 2. Paresthesia left side of face Monitor, r/o TIA, CVA, neurology consult 3. Smoker Monitor, PPI, DVT prophylaxis 4. Migraine Monitor, MRI brain, neurology consult Assessment/Plan Subjective: Patient is awake and alert. Objective: Lumbar puncture has been canceled. Patient was seen by infectious disease. Low probability for meningitis. CT of head and neck is currently pending. Patient may have an abscess in her left jaw. Low suspicion for Rodriguez's palsy. Patient had some noted migraines prior to hospitalization. Patient had recent surgery to her left lower extremity, which could be contributing to some nerve damage and resulting numbness. Plan: Continue current treatment. CT head and neck is pending. Continue current antibiotics. Plan discussed with: Patient, Other FAUSTINO COHEN NP Dec 10, 2024 12:29
[2024-12-10] MEDS: IOHEXOL 300 MG/ML 100ML BOTTLE IJ ONE (13:15)
[2024-12-10 14:06] LABS: Albumin 3.3 g/dL (2.9-4.4); Alpha-1-Globulin 0.2 g/dL (0.0-0.4); Alpha-2-Globulin 0.5 g/dL (0.4-1.0); Gamma Globulin 0.9 g/dL (0.4-1.8); Globulin Total 2.3 g/dL (2.2-3.9); Protein Total Serum 5.6 g/dL (6.0-8.5)
--- NOTE | 2024-12-10 15:00 | DVH ---
EXAM: CT CT HEAD NECK WITH CONT HISTORY: Abscess TIA COMPARISON: CT scan without IV contrast dated 12/06/2024 TECHNIQUE: CTA imaging of the neck and head was performed following the uneventful administration o f intravenous contrast. Sagittal and coronal reformatted images were obtained from the source data. 3 D/MIP post-processing of the source data set was performed and reviewed by the radiologist. Radiation Dose Information: CT Dose: CTDI volume is 22 mGy. Dose-length product is 808.3 mGy*cm All CT scans at this medical facility are performed using dose modulation techniques as appropriate t o a performed exam including the following: Automated exposure control was utilized; adjustment of th e MA and/or KV according to patient size; and use of iterative reconstruction technique. FINDINGS: Suboptimal CT angiogram of the head and neck due to poor bolus timing. Most of the contrast is in th e venous system by the time of imaging. CTA Neck: Aortic Arch: Conventional branching. Right brachiocephalic artery: Unremarkable. Right carotid artery: Mild intimal thickening of the CCA and carotid bulb noted. Right subclavian artery: Unremarkable. Right vertebral artery: Unremarkable. Left carotid artery: Moderate intimal thickening of distal CCA and carotid bulb. Left subclavian artery: Unremarkable. Left vertebral artery: Unremarkable. Other: Reversal of normal lordosis multilevel degenerative disc disease in the lower cervical spine m ost prominent at C5-C7 levels with mild osseous central canal stenosis and varying degrees of neural foramina stenosis. Few subcentimeter hypodense foci are seen in the right thyroid lobe. CTA Head: [place]: The arteries of [place] are unremarkable, without evidence of aneurysm, steno sis or thrombosis. Dural venous: Grossly unremarkable. Other: None. IMPRESSION: 1. Suboptimal CT angiogram of the head and neck due to poor bolus timing. Loss of the contrast is in the venous system by the time of imaging. 2. No large vessel occlusion or high-grade stenosis noted in the head and neck. No aneurysm is identi fied. 3. Intimal thickening in the bilateral common carotid arteries and carotid bulbs. 4. No drainable intracranial fluid collection is noted.
--- NOTE | 2024-12-10 19:18 | DVHPN2 ---
LAVERNE PAN RESIDENT 12/10/241917: Consult Progress Note Date Seen: Dec 10, 2024 Subjective Patient reports: No new complaints Other Systems: No new complaints. Patient complaining of continuing mild tingling sensation of left face, however not complaining of upper extremity tingling sensation anymore . Patient has chronic lower extremity tingling sensation after status post left knee surgeries. Physical Exam General Appearance: Cooperative. Well developed. Well nourished. NAD Head Exam: Normal inspection Neck Exam: Normal inspection. Non-tender. Normal alignment Pulmonary/Respiratory: Chest non-tender. Clear bilateral breath sounds Cardiovascular/Chest: Regular rate and rhythm. No murmurs. No JVD. Peripheral Pulses: 2+ Radial (R). 2+ Radial (L). 2+ Pedal (R). 2+ Pedal (L) Abdominal Exam: Normal bowel sounds. Soft. Nontender. No hepatospenomegaly. No masses Ankle Exam: Negative ankle edema Lower extremities: Negative lower extremity edema Neuro/Mental Status: A&O x4. Coherent Thoughts/Psych: Normal thought pattern. Appropriate mood and affect. Good judgement and insight Appearance: In no acute distress Skin Exam: Normal inspection. Normal color. Warm. Dry Objective vital signs Vital Sign Date Time Temp Pulse Resp B/P (MAP) Pulse Ox O2 Delivery O2 Flow Rate FiO2 12/10/24 17:09 97.7 87 16 116/66 (83) 94 97.7 12/10/24 08:05 Room Air* 0 21 Total Intake and Output 12/09/24 12/09/24 12/10/24 15:00 23:00 07:00 Intake Total 300 ml 604 ml 1050 ml Balance 300 ml 604 ml 1050 ml medications Current Medications Medications Dose Ordered Sig/Tracey Route Start Time Stop Time Status Last Admin Dose Admin Pantoprazole Sodium 40 mg BID PO 12/06/24 22:00 12/10/24 10:35 40 MG Sucralfate 1 gm BID PO 12/06/24 22:00 12/10/24 10:35 1 GM Atorvastatin Calcium 40 mg QPM PO 12/06/24 18:00 12/10/24 17:10 40 MG Patient Own Medication 1 tab DAILY PO 12/07/24 10:00 Sodium Chloride 10 ml Q8HR IV 12/06/24 14:00 12/10/24 14:06 10 ML Docusate Sodium 100 mg BIDPRN PRN PO 12/06/24 13:30 12/10/24 10:34 100 MG Acetaminophen 650 mg Q6HP PRN PO 12/06/24 13:30 Acetaminophen/ Hydrocodone Bitart 1 tab Q4HP PRN PO 12/06/24 13:30 12/10/24 10:38 1 TAB Hydromorphone HCl 0.5 mg Q4HP PRN IV 12/06/24 13:30 12/10/24 02:38 0.5 MG Ondansetron HCl 4 mg Q4HP PRN IV 12/06/24 13:30 Enoxaparin Sodium 40 mg DAILY SC 12/07/24 10:00 12/10/24 10:36 40 MG Trazodone HCl 50 mg DAILY PRN PO 12/07/24 19:45 12/09/24 23:30 50 MG Vancomycin HCl 0 ml @ 0 mls/hr UD IV 12/07/24 19:45 Lorazepam 1 mg ONCE PRN IV 12/08/24 16:15 12/11/24 16:14 Aspirin 81 mg DAILY PO 12/09/24 10:00 12/10/24 10:35 81 MG laboratory and microbiology Laboratory Tests 12/10/24 06:50 Test 12/10/24 06:50 Range/Units Serum Glucose 100 74-106 mg/dL Problem List/Assessment/Plan Problem List/Assessment/Plan Sepsis with unknown source of infection Low probability of meningitis Possible TIA Leukocytosis: Improved Neutrophilia Obesity Plan/recommendation Dr. Gill Reviewed CT scan of head and neck. Unremarkable. Discontinued antibiotics given low probability of infectious etiology. Follow up with Neurology recommendation. -Low probability of meningitis , given normotensive, alert oriented to time place and person, never been altered before, no nuchal rigidity, improvement of neck pain and headache. Possibility of migraine can not be ruled out. -If lumbar puncture is scheduled, he would like to get it done CSF glucose, protein, cell count, bacterial and fungal culture, AFP. -Discontinue isolation given patient already received two days of IV antibiotic ceftriaxone. -Pending TB QuantiFERON gold. -Neurology consultation -Rest of management as per primary care team. Plan discussed with: Patient, Other (RN) SHERIDAN GILL MD 12/12/24 7752: Consult Progress Note Problem List/Assessment/Plan Problem List/Assessment/Plan _ Attending Addendum: Case discussed with Dr. Pan. at the time of visit. Seen by Dr Pan and reviewed assessment and plan . having mild headaches but the numbness on her face has been improving. head and neck CT shows no large vessel aclusion in head or neck , no signs of facial abscess. Stop vancomycin and ceftriaxone at this time and monitor patient clinically off all antibiotics LAVERNE PAN RESIDENT Dec 10, 2024 19:18 SHERIDAN GILL MD Dec 12, 2024 23:32
[2024-12-10] MEDS: ONDANSETRON HCL 4 MG/2 ML VIAL IV PRN (21:22)
--- NOTE | 2024-12-10 22:41 | DVHPN2 ---
Progress Note - Dictate Date Seen: Dec 10, 2024 Medical Necessity Reason Pt with a Central, PICC or Fol: No Subjective MsJordi Mar is a 54 years old right-handed female with a history of hypertension, she came to the [facility] on 12/06/2024 with a chief company of left-sided paresthesia and weakness. I have seen examined the patient I have discussed with hers nurse, she was doing fine, no head, Infectious disease input appreciated Urinalysis, 12/06/2024: WBC: 1, urine leukocyte esterase: Negative CBC, 12/25/2024: Unremarkable ESR, 12/06/2024: 2 HGB A1c, 12/06/2024: 5.3 CMP, 12/08/2024: Unremarkable TG/HDL/LDL/HDL, 10/25/2024: 85/155/100/46 Vitamin B12, 12/08/2024: 347 Folic acid, 12/08/2024: 14.08 TSH, 10/25/2024: 2.07 Protein electrophoresis, 12/08/2024: No M protein Carotid Doppler, 12/07/2024: 1. No evidence of hemodynamically significant stenosis within the bilateral carotid arterial systems. 2. Antegrade flow within bilateral vertebral arteries MRI head, 12/06/2024: 1. No evidence of acute intracranial abnormality. No evidence of acute infarct. 2. Nonspecific tiny foci of T2/FLAIR hyperintensity in the subcortical white matter. Findings may be due to mild chronic small- vessel ischemic disease. Other etiologies such as migraine headaches or demyelinating disease could also have a similar appearance in the appropriate clinical setting. Correlate with clinical findings vital signs Vital Sign Date Time Temp Pulse Resp B/P (MAP) Pulse Ox O2 Delivery O2 Flow Rate FiO2 12/10/24 21:22 87 18 116/66 12/10/24 17:09 97.7 94 97.7 12/10/24 08:05 Room Air* 0 21 Total Intake and Output 12/09/24 12/09/24 12/10/24 15:00 23:00 07:00 Intake Total 300 ml 604 ml 1050 ml Balance 300 ml 604 ml 1050 ml medications Current Medications Medications Dose Ordered Sig/Tracey Route Start Time Stop Time Status Last Admin Dose Admin Pantoprazole Sodium 40 mg BID PO 12/06/24 22:00 12/10/24 21:20 40 MG Sucralfate 1 gm BID PO 12/06/24 22:00 12/10/24 21:20 1 GM Atorvastatin Calcium 40 mg QPM PO 12/06/24 18:00 12/10/24 17:10 40 MG Patient Own Medication 1 tab DAILY PO 12/07/24 10:00 Sodium Chloride 10 ml Q8HR IV 12/06/24 14:00 12/10/24 21:29 10 ML Docusate Sodium 100 mg BIDPRN PRN PO 12/06/24 13:30 12/10/24 21:21 100 MG Acetaminophen 650 mg Q6HP PRN PO 12/06/24 13:30 Acetaminophen/ Hydrocodone Bitart 1 tab Q4HP PRN PO 12/06/24 13:30 12/10/24 10:38 1 TAB Hydromorphone HCl 0.5 mg Q4HP PRN IV 12/06/24 13:30 12/10/24 21:22 0.5 MG Ondansetron HCl 4 mg Q4HP PRN IV 12/06/24 13:30 12/10/24 21:22 4 MG Enoxaparin Sodium 40 mg DAILY SC 12/07/24 10:00 12/10/24 10:36 40 MG Trazodone HCl 50 mg DAILY PRN PO 12/07/24 19:45 12/09/24 23:30 50 MG Vancomycin HCl 0 ml @ 0 mls/hr UD IV 12/07/24 19:45 Lorazepam 1 mg ONCE PRN IV 12/08/24 16:15 12/11/24 16:14 Aspirin 81 mg DAILY PO 12/09/24 10:00 12/10/24 10:35 81 MG objective General: the patient is well developed and nourished. No acute distress. MUSCULOSKELETAL EXAM: Bilateral hammertoes and high-arched foot No tenderness to palpation in the spine MENTAL STATUS: Awake and alert. Oriented to person, place, time and general circumstances. Able to give personal history. SPEECH, LANGUAGE, HIGHER CORTICAL FUNCTION: no aphasia or dysathria. CRANIAL NERVES: Pupils are equal, round and reactive. EOMs full and conjugate. No nystagmus. Facial sensation intact in all three divisions bilaterally. Mandibular strength intact. Facial muscles symmetrical and strength intact. Tongue midline. No fasciculations or atrophy. SENSATION: Sensation to touch and pinprick is normal. MOTOR: Normal tone in the upper and lower extremity. Normal muscle bulk. No fasciculations. No abnormal movements or posturing. Muscle strength of the major groups in the extremities is 5/5. REFLEXES: Deep tendon reflexes normal and symmetrical. No pathological reflexes. CEREBELLAR/COORDINATION: Finger to nose is normal bilaterally. GAIT/STATION: deferred. laboratory and microbiology Laboratory Tests 12/10/24 06:50 Test 12/10/24 06:50 Range/Units Serum Glucose 100 74-106 mg/dL Problem List Acute stroke syndrome with unremarkable MRI brain scan Hyperreflexia, to rule out myelopathy High-arched foot, hammertoes, to rule out polyneuropathy Meningitis, low probability Assessment/Plan Monitoring Supportive treatment Telemetry MRI cervical spine MRI thoracic spine Lipitor 40 mg daily Infectious disease on case More recommendation per clinical course This medical document was created using an electronic medical record system with Doctor kinetic dictation system. Although this document has been carefully reviewed, there may still be some phonetic and typographical errors. These areas are purely typographical due to imperfections of the software programs, and do not reflect any compromise in the patient's medical care. Prognosis poor Plan discussed with: Patient, Other FRANKLIN OROSCO MD Dec 10, 2024 22:41
[2024-12-11] VITALS (7 sets, daily range): BP systolic 108–116; BP diastolic 65–73; PULSE 69–95; RESP 15–18; TEMP 97.3–98.4; O2SAT 96–99
[2024-12-11 06:37] LABS: Basophils # (auto) 0.1 10 ^3/uL (0-0.2); Basophils % (auto) 1.2 % (0.0-2.0); Eosinophils # (auto) 0.5 10 ^3/uL (0-0.8); Eosinophils % (auto) 7.9 % (0.0-7.0); Hematocrit 38.6 % (36.0-46.0); Lymphocytes # (auto) 2.3 10 ^3/uL (0.4-5.4); Mean Corpuscular Hemoglobin 31.7 pg (28.0-32.0); Mean Corpuscular Hgb Conc. 33.8 g/dL (32.0-36.0); Mean Corpuscular Volume 93.5 fL (80.0-100.0); Monocytes # (auto) 0.5 10 ^3/uL (0-1.3); Monocytes % (auto) 8.1 % (0.0-12.0); Neutrophils # (auto) 2.9 10 ^3/uL (1.6-8.6); Neutrophils % (auto) 46.8 % (37.0-80.0); Nucleated Red Blood Cells % 0.1 %; Platelet Count (auto) 205 10^3/uL (140-450); Red Blood Cells 4.12 10^6/uL (4.0-5.20); Red Cell Distribution Width 13.7 % (11.8-14.3); White Blood Cell 6.3 10^3/uL (4.4-10.8)
[2024-12-11 06:51] LABS: Alanine Aminotransferase 32 U/L (7-40); Albumin 3.4 g/dL (3.2-4.8); Alkaline Phosphatase 53 U/L (46-116); Anion Gap 6 (5-15); Aspartate Aminotransferase 26 U/L (13-40); BUN/Creatinine Ratio 14.3 (10.0-20.0); Blood Urea Nitrogen 10 mg/dL (9-23); Calcium 9.2 mg/dL (8.7-10.4); Carbon Dioxide 25 mmol/L (20-31); Potassium 4.3 mmol/L (3.5-5.1); Sodium 142 mmol/L (136-145)
[2024-12-11 06:52] LABS: Bilirubin, Total 0.3 mg/dL (0.2-1.0)
[2024-12-11 06:55] LABS: Chloride 111 mmol/L (98-107); Glucose 111 mg/dL (74-106); Total Protein 5.1 g/dL (5.7-8.2)
--- NOTE | 2024-12-11 10:58 | DVHPN2 ---
Progress Note - Dictate Date Seen: Dec 11, 2024 Medical Necessity Reason Pt with a Central, PICC or Fol: No vital signs Vital Sign Date Time Temp Pulse Resp B/P (MAP) Pulse Ox O2 Delivery O2 Flow Rate FiO2 12/11/24 08:11 98.1 71 18 116/68 (84) 99 98.1 12/10/24 20:00 Room Air* 0 21 Total Intake and Output 12/10/24 12/10/24 12/11/24 15:00 23:00 07:00 Intake Total 50 ml 1250 ml Output Total 400 ml Balance 50 ml 850 ml medications Current Medications Medications Dose Ordered Sig/Tracey Route Start Time Stop Time Status Last Admin Dose Admin Pantoprazole Sodium 40 mg BID PO 12/06/24 22:00 12/11/24 09:25 40 MG Sucralfate 1 gm BID PO 12/06/24 22:00 12/11/24 09:25 1 GM Atorvastatin Calcium 40 mg QPM PO 12/06/24 18:00 12/10/24 17:10 40 MG Patient Own Medication 1 tab DAILY PO 12/07/24 10:00 Sodium Chloride 10 ml Q8HR IV 12/06/24 14:00 12/11/24 05:23 10 ML Docusate Sodium 100 mg BIDPRN PRN PO 12/06/24 13:30 12/10/24 21:21 100 MG Acetaminophen 650 mg Q6HP PRN PO 12/06/24 13:30 Acetaminophen/ Hydrocodone Bitart 1 tab Q4HP PRN PO 12/06/24 13:30 12/10/24 10:38 1 TAB Hydromorphone HCl 0.5 mg Q4HP PRN IV 12/06/24 13:30 12/11/24 06:05 0.5 MG Ondansetron HCl 4 mg Q4HP PRN IV 12/06/24 13:30 12/11/24 06:00 4 MG Enoxaparin Sodium 40 mg DAILY SC 12/07/24 10:00 12/11/24 09:26 40 MG Trazodone HCl 50 mg DAILY PRN PO 12/07/24 19:45 12/09/24 23:30 50 MG Vancomycin HCl 0 ml @ 0 mls/hr UD IV 12/07/24 19:45 Lorazepam 1 mg ONCE PRN IV 12/08/24 16:15 12/11/24 16:14 Aspirin 81 mg DAILY PO 12/09/24 10:00 12/11/24 09:25 81 MG objective General Appearance: alert, no distress HEENT: EOMI, PERRLA, normal external inspect of ears, no icterus, no nasal drainage Neck: no carotid bruit, no jugular venous distention (JVD), no lymphadenopathy Chest: normal thorax Respiratory: clear to auscultation, normal air movement Cardiovascular: regular rate and rhythm, no diastolic murmur, no jugular venous distention (JVD), no rub, no systolic murmur Abdominal: soft, no hepatomegaly, no mass, no splenomegaly, no tenderness Genitourinary: grossly normal external Musculoskeletal: no joint tenderness, no swelling Extremities: normal pulses, no calf tenderness, no clubbing, no cyanosis, no edema Skin: no bruising, no jaundice, no rash Neurological: alert, No focal deficit laboratory and microbiology Laboratory Tests 12/11/24 05:40 Test 12/11/24 05:40 Range/Units Serum Glucose 111 H 74-106 mg/dL Problem List 1. Left sided weakness Monitor, r/o TIA, CVA, neurology consult, check lipid panel, check Hgb A1C, COMMUNICATION ASSISTANT eval, MRI brain, r/o meningitis, plan for lumbar puncture 2. Paresthesia left side of face Monitor, r/o TIA, CVA, neurology consult 3. Smoker Monitor, PPI, DVT prophylaxis 4. Migraine Monitor, MRI brain, neurology consult Assessment/Plan Subjective: Patient is awake and alert. Objective: Patient was admitted for left sided weakness and left facial paresthesia and numbness. Patient has some slight swelling to her left jawline. CT of head and neck had no acute findings. No infectious process has been found. LP was discontinued due to low suspicion for meningitis. MRI of C-spine and T-spine is currently pending. MRI of the head is negative. Plan: Continue current treatment. Neurology recommendations appreciated and DC planning. Plan discussed with: Patient, Other FAUSTINO COHEN NP Dec 11, 2024 10:58
--- NOTE | 2024-12-11 12:30 | DVH ---
MRI CERVICAL SPINE CLINICAL HISTORY: Myelopathy Comparison: None Technique: Multi planar, multi sequence MR images of the cervical spine without intravenous contrast. FINDINGS: The cervical spinal cord demonstrates normal caliber and signal. The visualized posterior fossa yamilet nts appear unremarkable. The craniocervical junction is within normal limits. The vertebral body heig hts and bone marrow signal are appropriate. There is reversal of the cervical lordosis. There is disc desiccation throughout. There is moderate disc space narrowing at C6-C7 and to a lesser degree at C5 -C6. At C2-C3 there is mild facet arthropathy. There is no canal or significant foraminal stenosis. At C3-C4 there is bilateral facet arthropathy, [id number]. There is mild disc bulge. Th ere is no canal or significant foraminal stenosis. At C4-C5 there is bilateral facet arthropathy, [id number]. There is mild disc bulge. Th ere is no canal stenosis. There is mild left neural foraminal stenosis. At C5-C6 there is disc bulge with a small central disc protrusion. There is mild facet arthropathy. T here is indentation of the ventral thecal sac without canal or significant foraminal stenosis. At C6-C7 there is posterior disc osteophyte complex and bilateral uncovertebral arthropathy, right-gr [id number]. There is mild canal stenosis with effacement of the ventral thecal sac. There is mod erate to severe right and moderate left neural foraminal stenosis. At C7-T1 there is no significant disc herniation. There is no canal or significant foraminal stenosi s. IMPRESSION: 1. Reversal of the cervical lordosis with multilevel degenerative changes as described by tere bourne, worst at C6-C7. HS:Y
--- NOTE | 2024-12-11 12:37 | DVH ---
PROCEDURE: MRI THORACIC SPINE WITHOUT INDICATION: myelopathy Exam Date: 12/11/2024 11:55 AM COMPARISON: None TECHNIQUE: MRI thoracic spine without intravenous contrast. FINDINGS: The thoracic alignment is intact. The vertebral body heights are intact. There are degenerative end plate changes with anterior and lateral osteophytes mid to lower thoracic levels. The thoracic cord signal and contour appear intact. There are small posterior disc bulges and facet arthropathy at mul tiple levels. No significant central canal or neural foraminal stenosis. The visualized paraspinal soft tissues are otherwise unremarkable. Is a cyst in the left lobe of the liver measuring up to 55 m m IMPRESSION: 1. Mild degenerative changes of the thoracic spine. No significant central canal or neural foraminal stenosis. 2. Intact thoracic cord signal. No evidence of cord compression. 3. Left hepatic cyst incidentally noted. HS:Y
--- NOTE | 2024-12-11 19:07 | DVHPN2 ---
LAVERNE PAN RESIDENT 12/11/247: Consult Progress Note Date Seen: Dec 11, 2024 Subjective Patient reports: No new complaints Other Systems: No new complaints. Physical Exam General Appearance: Cooperative. Well developed. Well nourished. NAD Head Exam: Normal inspection Neck Exam: Normal inspection. Non-tender. Normal alignment Pulmonary/Respiratory: Chest non-tender. Clear bilateral breath sounds Cardiovascular/Chest: Regular rate and rhythm. No murmurs. No JVD. Peripheral Pulses: 2+ Radial (R). 2+ Radial (L). 2+ Pedal (R). 2+ Pedal (L) Abdominal Exam: Normal bowel sounds. Soft. Nontender. No hepatospenomegaly. No masses Ankle Exam: Negative ankle edema Lower extremities: Negative lower extremity edema Neuro/Mental Status: A&O x4. Coherent Thoughts/Psych: Normal thought pattern. Appropriate mood and affect. Good judgement and insight Appearance: In no acute distress Skin Exam: Normal inspection. Normal color. Warm. Dry Objective vital signs Vital Sign Date Time Temp Pulse Resp B/P (MAP) Pulse Ox O2 Delivery O2 Flow Rate FiO2 12/11/24 16:26 69 17 108/69 12/11/24 15:59 98.4 98 98.4 12/11/24 08:00 Room Air* 0 21 Total Intake and Output 12/10/24 12/10/24 12/11/24 15:00 23:00 07:00 Intake Total 50 ml 1250 ml Output Total 400 ml Balance 50 ml 850 ml medications Current Medications Medications Dose Ordered Sig/Tracey Route Start Time Stop Time Status Last Admin Dose Admin Pantoprazole Sodium 40 mg BID PO 12/06/24 22:00 12/11/24 09:25 40 MG Sucralfate 1 gm BID PO 12/06/24 22:00 12/11/24 09:25 1 GM Atorvastatin Calcium 40 mg QPM PO 12/06/24 18:00 12/11/24 17:28 40 MG Patient Own Medication 1 tab DAILY PO 12/07/24 10:00 Sodium Chloride 10 ml Q8HR IV 12/06/24 14:00 12/11/24 13:18 10 ML Docusate Sodium 100 mg BIDPRN PRN PO 12/06/24 13:30 12/11/24 16:45 100 MG Acetaminophen 650 mg Q6HP PRN PO 12/06/24 13:30 Acetaminophen/ Hydrocodone Bitart 1 tab Q4HP PRN PO 12/06/24 13:30 12/10/24 10:38 1 TAB Hydromorphone HCl 0.5 mg Q4HP PRN IV 12/06/24 13:30 12/11/24 16:26 0.5 MG Ondansetron HCl 4 mg Q4HP PRN IV 12/06/24 13:30 12/11/24 06:00 4 MG Enoxaparin Sodium 40 mg DAILY SC 12/07/24 10:00 12/11/24 09:26 40 MG Trazodone HCl 50 mg DAILY PRN PO 12/07/24 19:45 12/09/24 23:30 50 MG Aspirin 81 mg DAILY PO 12/09/24 10:00 12/11/24 09:25 81 MG laboratory and microbiology Laboratory Tests 12/11/24 05:40 Test 12/11/24 05:40 Range/Units Serum Glucose 111 H 74-106 mg/dL Problem List/Assessment/Plan Problem List/Assessment/Plan Sepsis with unknown source of infection Low probability of meningitis Possible TIA Leukocytosis: Improved Neutrophilia Obesity Plan/recommendation Dr. Gill Reviewed CT scan of head and neck. Unremarkable. Discontinued antibiotics given low probability of infectious etiology. No worsening symptoms after discontinuing antibiotic. Follow up with Neurology recommendation. -Low probability of meningitis , given normotensive, alert oriented to time place and person, never been altered before, no nuchal rigidity, improvement of neck pain and headache. Possibility of migraine can not be ruled out. -If lumbar puncture is scheduled, he would like to get it done CSF glucose, protein, cell count, bacterial and fungal culture, AFP. -Discontinue isolation given patient already received two days of IV antibiotic ceftriaxone. -Pending TB QuantiFERON gold. -Neurology consultation -Rest of management as per primary care team. Plan discussed with: Patient, Other (RN) SHERIDAN GILL MD 12/14/24 1317: Consult Progress Note Problem List/Assessment/Plan Problem List/Assessment/Plan _ Attending Addendum: Case discussed with Dr. Pan. at the time of visit. Seen by Dr Pan and reviewed assessment and plan . patient is feeling well , facial numbness is improving . 12 point review system performed with patient is all negative. patient continues to do well off all antibiotics Physical Exam General Appearance: Cooperative. Well developed. Well nourished. NAD Head Exam: Normal inspection Neck Exam: Normal inspection. Non-tender. Normal alignment Pulmonary/Respiratory: Chest non-tender. Clear bilateral breath sounds Cardiovascular/Chest: Regular rate and rhythm. No murmurs. No JVD. Peripheral Pulses: 2+ Radial (R). 2+ Radial (L). 2+ Pedal (R). 2+ Pedal (L) Abdominal Exam: Normal bowel sounds. Soft. Nontender. No masses Ankle Exam: Negative ankle edema Lower extremities: Negative lower extremity edema Neuro/Mental Status: A&O x4. Coherent Thoughts/Psych: Normal thought pattern. Appropriate mood and affect. Good judgement and insight Appearance: In no acute distress Skin Exam: Normal inspection. Normal color. Warm. Dry LAVERNE PAN RESIDENT Dec 11, 2024 19:07 SHERIDAN GILL MD Dec 14, 2024 13:17
--- NOTE | 2024-12-11 23:24 | DVHPN2 ---
Progress Note - Dictate Date Seen: Dec 11, 2024 Medical Necessity Reason Pt with a Central, PICC or Fol: No Subjective Ms. Mar is a 54 years old right-handed female with a history of hypertension, she came to the [facility] on 12/06/2024 with a chief company of left-sided paresthesia and weakness. I have seen examined the patient I have discussed with hers nurse, she was doing fine, new complaints The case was discussed with Alana Urinalysis, 12/06/2024: WBC: 1, urine leukocyte esterase: Negative CBC, 12/25/2024: Unremarkable ESR, 12/06/2024: 2 HGB A1c, 12/06/2024: 5.3 CMP, 12/08/2024: Unremarkable TG/HDL/LDL/HDL, 10/25/2024: 85/155/100/46 Vitamin B12, 12/08/2024: 347 Folic acid, 12/08/2024: 14.08 TSH, 10/25/2024: 2.07 Protein electrophoresis, 12/08/2024: No M protein Carotid Doppler, 12/07/2024: 1. No evidence of hemodynamically significant stenosis within the bilateral carotid arterial systems. 2. Antegrade flow within bilateral vertebral arteries MRI head, 12/06/2024: 1. No evidence of acute intracranial abnormality. No evidence of acute infarct. 2. Nonspecific tiny foci of T2/FLAIR hyperintensity in the subcortical white matter. Findings may be due to mild chronic small- vessel ischemic disease. Other etiologies such as migraine headaches or demyelinating disease could also have a similar appearance in the appropriate clinical setting. Correlate with clinical findings MRI C-spine, 12/11/2024: Reversal of the cervical lordosis with multilevel degenerative changes as described by levels above, worst at C6-C7 (normal caliber and signal) MRI T-spine, 12/11/2024: 1. Mild degenerative changes of the thoracic spine. No significant central canal or neural foraminal stenosis. 2. Intact thoracic cord signal. No evidence of cord compression. 3. Left hepatic cyst incidentally noted (cord signal and contour appear intact) vital signs Vital Sign Date Time Temp Pulse Resp B/P (MAP) Pulse Ox O2 Delivery O2 Flow Rate FiO2 12/11/24 21:52 65 17 118/72 12/11/24 21:00 98.1 96 98.1 12/11/24 08:00 Room Air* 0 21 Total Intake and Output 12/10/24 12/10/24 12/11/24 15:00 23:00 07:00 Intake Total 50 ml 1250 ml Output Total 400 ml Balance 50 ml 850 ml medications Current Medications Medications Dose Ordered Sig/Tracey Route Start Time Stop Time Status Last Admin Dose Admin Pantoprazole Sodium 40 mg BID PO 12/06/24 22:00 12/11/24 21:22 40 MG Sucralfate 1 gm BID PO 12/06/24 22:00 12/11/24 21:21 1 GM Atorvastatin Calcium 40 mg QPM PO 12/06/24 18:00 12/11/24 17:28 40 MG Patient Own Medication 1 tab DAILY PO 12/07/24 10:00 Sodium Chloride 10 ml Q8HR IV 12/06/24 14:00 12/11/24 21:23 10 ML Docusate Sodium 100 mg BIDPRN PRN PO 12/06/24 13:30 12/11/24 16:45 100 MG Acetaminophen 650 mg Q6HP PRN PO 12/06/24 13:30 Acetaminophen/ Hydrocodone Bitart 1 tab Q4HP PRN PO 12/06/24 13:30 12/10/24 10:38 1 TAB Hydromorphone HCl 0.5 mg Q4HP PRN IV 12/06/24 13:30 12/11/24 21:22 0.5 MG Ondansetron HCl 4 mg Q4HP PRN IV 12/06/24 13:30 12/11/24 06:00 4 MG Enoxaparin Sodium 40 mg DAILY SC 12/07/24 10:00 12/11/24 09:26 40 MG Trazodone HCl 50 mg DAILY PRN PO 12/07/24 19:45 12/09/24 23:30 50 MG Aspirin 81 mg DAILY PO 12/09/24 10:00 12/11/24 09:25 81 MG objective General: the patient is well developed and nourished. No acute distress. MUSCULOSKELETAL EXAM: Bilateral hammertoes and high-arched foot No tenderness to palpation in the spine MENTAL STATUS: Awake and alert. Oriented to person, place, time and general circumstances. Able to give personal history. SPEECH, LANGUAGE, HIGHER CORTICAL FUNCTION: no aphasia or dysathria. CRANIAL NERVES: Pupils are equal, round and reactive. EOMs full and conjugate. No nystagmus. Facial sensation intact in all three divisions bilaterally. Mandibular strength intact. Facial muscles symmetrical and strength intact. Tongue midline. No fasciculations or atrophy. SENSATION: Sensation to touch and pinprick is normal. MOTOR: Normal tone in the upper and lower extremity. Normal muscle bulk. No fasciculations. No abnormal movements or posturing. Muscle strength of the major groups in the extremities is 5/5. REFLEXES: Deep tendon reflexes normal and symmetrical. No pathological reflexes. CEREBELLAR/COORDINATION: Finger to nose is normal bilaterally. GAIT/STATION: deferred. laboratory and microbiology Laboratory Tests 12/11/24 05:40 Test 12/11/24 05:40 Range/Units Serum Glucose 111 H 74-106 mg/dL Problem List Acute stroke syndrome with unremarkable MRI brain scan Hyperreflexia, T-spine and C-spine MRI High-arched foot, hammertoes, to rule out polyneuropathy Meningitis, low probability Assessment/Plan Monitoring Supportive treatment Telemetry Lipitor 40 mg daily Infectious disease on case More recommendation per clinical course Okay to discharge from a neurologic point of view This medical document was created using an electronic medical record system with [employer] computerized dictation system. Although this document has been carefully reviewed, there may still be some phonetic and typographical errors. These areas are purely typographical due to imperfections of the software programs, and do not reflect any compromise in the patient's medical care. Prognosis poor Plan discussed with: Patient, Other FRANKLIN OROSCO MD Dec 11, 2024 23:24
[2024-12-12 01:00] VITALS: BP 106/71; PULSE 81; RESP 16; TEMP 97.9; O2SAT 97
[2024-12-12 05:00] VITALS: BP 102/59; PULSE 60; RESP 17; TEMP 97.6; O2SAT 97
[2024-12-12 08:00] VITALS: PULSE 84
[2024-12-12 09:02] VITALS: BP 113/63; PULSE 64; RESP 16; TEMP 98.4; O2SAT 97
[2024-12-12] MEDS ORDERED: AMOX500T86 PO (09:04)
[2024-12-12 09:06] LABS: QuantiFERON-TB Gold Plus Negative (Negative)
--- NOTE | 2024-12-12 09:08 | DVHDS2 ---
Discharge Summary Date of Admission Dec 06, 2024 at 13:22 Date of Discharge: Dec 12, 2024 Labs/Diagnostic Data: Laboratory Results Test 12/11/24 13:07 12/11/24 05:40 12/09/24 19:59 12/08/24 17:50 Vancomycin Level Trough 5.5 ug/mL (5-10) White Blood Count 6.3 10^3/uL (4.4-10.8) Red Blood Count 4.12 10^6/uL (4.0-5.20) Hemoglobin 13.0 g/dL (12.2-16.2) Hematocrit 38.6 % (36.0-46.0) Mean Corpuscular Volume 93.5 fL (80.0-100.0) Mean Corpuscular Hemoglobin 31.7 pg (28.0-32.0) Mean Corpuscular Hemoglobin Concent 33.8 g/dL (32.0-36.0) Red Cell Distribution Width 13.7 % (11.8-14.3) Platelet Count 205 10^3/uL (140-450) Mean Platelet Volume 8.1 fL (6.9-10.8) Neutrophils (%) (Auto) 46.8 % (37.0-80.0) Lymphocytes (%) (Auto) 36.0 % (10.0-50.0) Monocytes (%) (Auto) 8.1 % (0.0-12.0) Eosinophils (%) (Auto) 7.9 % (0.0-7.0) Basophils (%) (Auto) 1.2 % (0.0-2.0) Neutrophils # (Auto) 2.9 10 ^3/uL (1.6-8.6) Lymphocytes # (Auto) 2.3 10 ^3/uL (0.4-5.4) Monocytes # (Auto) 0.5 10 ^3/uL (0-1.3) Eosinophils # (Auto) 0.5 10 ^3/uL (0-0.8) Basophils # (Auto) 0.1 10 ^3/uL (0-0.2) Nucleated Red Blood Cells 0.1 % Sodium Level 142 mmol/L (136-145) Potassium Level 4.3 mmol/L (3.5-5.1) Chloride Level 111 mmol/L (98-107) Carbon Dioxide Level 25 mmol/L (20-31) Anion Gap 6 (5-15) Blood Urea Nitrogen 10 mg/dL (9-23) Creatinine 0.70 mg/dL (0.550-1.02) Glomerular Filtration Rate Calc 102 mL/min (>90) BUN/Creatinine Ratio 14.3 (10.0-20.0) Serum Glucose 111 mg/dL (74-106) Calcium Level 9.2 mg/dL (8.7-10.4) Total Bilirubin 0.3 mg/dL (0.2-1.0) Aspartate Amino Transferase (AST) 26 U/L (13-40) Alanine Aminotransferase (ALT) 32 U/L (7-40) Alkaline Phosphatase 53 U/L (46-116) Total Protein 5.1 g/dL (5.7-8.2) Albumin 3.4 g/dL (3.2-4.8) TB Test (QFT) Gold Plus Negative (Negative) TB Test (QFT) Nil 0.03 IU/mL (.) TB Test (QFT) Mitogen >10.00 IU/mL (.) TB Test (QFT) Antigen 1 0.04 IU/mL (.) TB Test (QFT) Antigen 2 0.02 IU/mL (.) TB Test (QFT) Criteria Comment (.) Globulin (PEP) 2.3 g/dL (2.2-3.9) Albumin/Globulin Ratio 1.4 (0.7-1.7) Utphb-0-Jipbbhhwi 0.2 g/dL (0.0-0.4) Ksymb-3-Heeluqzgd 0.5 g/dL (0.4-1.0) Beta Globulins 0.7 g/dL (0.7-1.3) Gamma Globulins 0.9 g/dL (0.4-1.8) Protein Electrophoresis M-Edgar Not observed g/dL (Not Protein Electrophoresis Note Comment (.) Vitamin B12 Level 347 pg/mL (211-911) Folic Acid 14.08 ng/mL (>5.38) Test 12/06/24 14:37 12/06/24 09:53 12/06/24 08:50 Erythrocyte Sedimentation Rate 2 mm/hr (0-20) Hemoglobin A1c 5.3 % A1C (<5.7) Prothrombin Time 11.1 sec (9.3-11.8) Prothrombin Time INR 1.05 (0.9-1.15) Activated Partial Thromboplast Time 20.2 SEC (24.5-34.5) Magnesium Level 2.1 mg/dL (1.6-2.6) C-Reactive Protein High Sensitivity < 0.02 mg/dL (<1.0) Urine Color Light-yellow (Yellow) Urine Clarity Clear (Clear) Urine pH 6.0 (5.0-9.0) Urine Specific [place] 1.008 (1.001-1.035) Urine Protein Negative (Negative) Urine Ketones Negative (Negative) Urine Blood Negative /uL (Negative) Urine Nitrite Negative (Negative) Urine Bilirubin Negative (Negative) Urine Urobilinogen Normal mg/dL (Negative) Urine Leukocyte Esterase Negative /uL (Negative) Urine RBC 1 /hpf (0 - 4) Urine Microscopic WBC 1 /HPF (0-5) Urine Squamous Epithelial Cells Few /hpf (<5) Urine Bacteria Few /hpf (None Seen) Urine Glucose Normal mg/dL (Normal) Other Laboratory Tests 12/11/24 05:40 Brief Hx & Hospital Course: Patient was admitted on December 06, 2024 for complaints of left-sided weakness and left-sided facial paresthesia and swelling. Patient was seen by neurology. MRI was negative. Patient initially had suspicion for meningitis. Patient was seen by infectious disease. TB is currently pending however there is low suspicion for TB. Patient had recent left knee surgery due to a fracture. Patient had MRI of her C-spine and T-spine which did show some mild disc bulging and cervical spinal stenosis which could be contributing to her left-sided weakness. Patient could also have nerve damage to her left lower extremity due to recent knee surgery. Patient states she was recently seen by her PCP and was told her tympanic membrane was red and swollen. Patient states she could have a tooth infection on the left that of her jaw as well. Patient to continue antibiotic with amoxicillin for possible sinus infection. Patient to see her PCP Dr. Sy in 1 week. MRI was negative for CVA. The patient received proper medical treatment and medications. Vital signs, Imaging and Laboratory Work was monitored daily. All consults recommendations were followed as provided. There were no complaints or new complaints upon discharge, all questions and concerns were answered. Patient was advised to return to the ER or call 911 if any headaches, dizziness, shortness of breath, chest pain, bleeding, fevers, or worsening of medical condition. Patient/Family was counseled about treatment plan, medications, possible side effects, patient verbalized understanding. All questions were answered to the best of my ability. The patient symptoms improved and they are okay to be DC. Condition at Discharge: Stable Final Diagnosis/Problems List Possible ear and tooth infection causing numbness and swelling to left face Left arm numbness most likely from c spine mild stenosis Left leg numbness most likely from nerve damage from leg surgery No CVA Left sided weakness Paresthesia left side of face Smoker Migraine Discharge Disposition: Home Discharge Instruct/Medications Diet: Cardiac 2g Na,low cholest Activity: No Restrictions, As Tolerated Follow Up/Referral: pcp 1 week- Giovanni TIJERINA Discharge Statement: "Patient was advised to return to the ER or call 911 if any headaches, dizziness, shortness of breath, chest pain, abdominal pain, bleeding, fevers, or worsening of medical condition. Patient was counseled about treatment plan, medications, possible side effects, patientverbalized understanding. All questions were answered to the best of my ability. This discharge took greater then 30 minutes in planning, reviewing documentation, counseling the patient, and discussing with other team members." ASSESSMENT ASSESSMENT Assessment Possible ear and tooth infection causing numbness and swelling to left face Left arm numbness most likely from c spine mild stenosis Left leg numbness most likely from nerve damage from leg surgery No CVA No Meningitis TB pending- low suspicion FAUSTINO COHEN NP Dec 12, 2024 09:08
[2024-12-12 13:29] VITALS: BP 119/69; PULSE 74; RESP 16
== END 2024-12-12 16:40 | disposition home or self-care (01) | DRG 872 ==
LOC: ER 08:44 → TELE 13:22 → TELE-WESTW 15:56
PROVIDERS: ADMIT Internal Medicine; ATTEND Student in an Organized Health Care Education/Training Program
DX: A41.9 Sepsis, unspecified organism (principal); G45.9 Transient cerebral ischemic attack, unspecified; E66.9 Obesity, unspecified; G43.909 Migraine, unspecified, not intractable, without status migrainosus; I10 Essential (primary) hypertension; K04.7 Periapical abscess without sinus; M20.42 Other hammer toe(s) (acquired), left foot; M20.41 Other hammer toe(s) (acquired), right foot; M48.02 Spinal stenosis, cervical region; Z79.899 Other long term (current) drug therapy; Z83.3 Family history of diabetes mellitus; Z68.29 Body mass index [BMI] 29.0-29.9, adult; Z88.8 Allergy status to other drugs, medicaments and biological substances
CPT/HCPCS: 36415; 70450; 70460; 70491; 70551; 71046; 72141; 72146; 80048; 80053; 80202; 81001; 82607; 82746; 83036; 83735; 84155; 84165; 85025; 85610; 85652; 85730; 86141; 93005; 93886; 96360; G0378; J2405

== ENCOUNTER 2025-01-02 22:55 | Emergency (ER) | payer BC ==
[~2025-01-02] VITALS: Ht 160 cm; Wt 72.4 kg
[~2025-01-02 22:55] MED LIST changes: +AMOX500T86 PO
[2025-01-02 23:08] VITALS: BP 150/90; PULSE 98; RESP 18; TEMP 97.9; O2SAT 96
[2025-01-03] MEDS: KETOROLAC TROMETH 60MG/2ML VIAL IM ONE (01:02)
--- NOTE | 2025-01-03 01:51 | DVH ---
HISTORY: dental abcess TECHNIQUE: Nonenhanced axial images through the facial bones with coronal and sagittal MPR. Radiation Dose Information: CT Dose: CTDI volume is mGy. Dose-length product is mGy*cm COMPARISON: None FINDINGS: Soft tissues: No abnormality demonstrated. No evidence of neck mass, abscess, or lymphadenopathy. Mandible: Unremarkable Maxilla: Unremarkable Zygomatic arches: Unremarkable Nasal bone: Unremarkable Orbits: Unremarkable Paranasal sinuses/Mastoid air cells/Middle ear cavities: Clear IMPRESSION: No abnormality demonstrated. Radiation optimization: All CT scans at this facility use at least one of these dose optimization julia hniques: automated exposure control mA and/or kV adjustment per patient size (includes targeted exam s where dose is matched to clinical indication) or iterative reconstruction.
--- NOTE | 2025-01-03 02:03 | ED.PDOC ---
Eye-HPI HPI Comments This is a 54 year old female presents to the ED chief complaint facial swelling. Patient reports was inpatient here proximally 1 month ago for dental abscess and was admitted for 6 days with IV antibiotics. Around 1 week ago with the swelling started on the left side of her face and neck and follow up with dental. States abscess under her crown, crown was removed and packed with antibiotics and put back in place and then started on amoxicillin. She reports increasing swelling over the past days called her dentist 2 days ago and they advised her to stop the amoxicillin and started on clindamycin. She reports no improvement however notes no increase in swelling. She rates dental pain 6/10 left upper drawer nonradiating type pain. Denies difficulty breathing, shortness breath, chest pain, difficulty swallowing, throat swelling nausea, vomiting fever, or chills. Chief Complaint: Tooth Pain Time Seen by MD: 23:20 Reviewed Notes: Nurses Notes, Medications, Allergies Allergies: Coded Allergies: Avocado (Verified Allergy, Unknown, 10/24/24) Home Meds Active Scripts Amoxicillin & Pot Clavulanate (Augmentin) 500 Mg Tab, 1 TAB PO BID, #14 TAB Prov:FAUSTINO COHEN DIRECTOR OF BUSINESS CONTINUITY 12/12/24 Atorvastatin Calcium (Lipitor) 40 Mg Tab, 1 TAB PO QPM, #90 TAB 1 Refill Prov:ROMERO ROSA MD 10/28/24 Sucralfate (CARAFATE) 1 Gm Tab, 1 GM PO BID, #60 TAB Prov:ROMERO ROSA MD 10/28/24 Pantoprazole Sodium Sesquihydr (Pantoprazole Sodium) 40 Mg Tab, 40 MG PO BID, #60 TAB Prov:ROMERO ROSA MD 10/28/24 Reported Medications Tizanidine Hydrochloride (Tizanidine Hcl) 4 Mg Tab, 1 TAB PO 10/24/24 Lisinopril & Hydrochlorothiazi (Lisinopril/Hydrochlorothi) 1 Tab Tab, 1 TAB PO DAILY 10/24/24 Gabapentin (Gabapentin) 300 Mg Cap, CAP PO 10/24/24 Mode of Arrival: Ambulatory Past Medical History PAST MEDICAL HISTORY: HTN Surgical History: Denies all surgeries DIGITAL CONTENT MANAGER History: No Pertinent DIGITAL CONTENT MANAGER History Family History Family History: Reviewed,noncontributory to illness Social History Smoker: Other Alcohol: Denies ETOH Use Drugs: Denies Drug Use Lives In: Home Constitutional: denies: chills, diaphoresis, fatigue, fever, malaise, sweats, weakness, others EENTM: reports: others (Dental pain); denies: blurred vision, double vision, ear bleeding, ear discharge, ear drainage, ear pain, ear ringing, eye pain, eye redness, hearing loss, mouth pain, mouth swelling, nasal discharge, nose bleeding, nose congestion, nose pain, photophobia, tearing, throat pain, throat swelling, voice changes Respiratory: denies: cough, hemoptysis, orthopnea, SOB at rest, shortness of breath, SOB with excertion, stridor, wheezing, others Cardiovascular: denies: chest pain, dizzy spells, diaphoresis, Dyspnea on exertion, edema, irregular heart beat, left arm pain, lightheadedness, palpitations, PND, syncope, others Gastrointestinal: denies: abdomen distended, abdominal pain, blood streaked bowels, constipated, diarrhea, dysphagia, difficulty swallowing, hematemesis, melena, nausea, poor appetite, poor fluid intake, rectal bleeding, rectal pain, vomiting, others Genitourinary: denies: abnormal vagina bleeding, burning, dyspareunia, dysuria, flank pain, frequency, hematuria, incontinence, pain, , vagina discharge, urgency, others Neurological: denies: dizziness, fainting, headache, left sided numbness, left sided weakness, numbness, paresthesia, pre-existing deficit, right sided num bness, right sided weakness, seizure, speech problems, tingling, tremors, weakness, others Musculoskeletal: denies: back pain, gout, joint pain, joint swelling, muscle pain, muscle stiffness, neck pain, others Integumetry: denies: bruises, change in color, change in hair/nails, dryness, laceration, lesions, lumps, rash, wounds, others Allergic/Immunocompromised: denies: Difficulty Healing, Frequent Infections, Hives, Itching, others Hematologic/Lymphatic: denies: anemia, blood clots, easy bleeding, easy bruising, swollen glands, others Endocrine: denies: excessive hunger, excessive sweating, excessive thirst, excessive urination, flushing, intolerance to cold, intolerance to heat, unexplained weight gain, unexplained weight loss, others Psychiatric: denies: anxiety, bipolar disorder, depression, hopeless, panic disorder, schizophrenia, sleepless, suicidal, others Physical Exam General Appearance: No Apparent Distress, Normal HEENT: Normal ENT Inspection, Pharynx Normal, TMs Normal Neck: Full Range of Motion, Non-Tender Respiratory: Chest Non-Tender, Lungs Clear, No Accessory Muscle Use, No Respiratory Distress, Normal Breath Sounds Cardiovascular: No Edema, No JVD, No Murmur, No Gallop, Normal Peripheral Pulses, Regular Rate/Rhythm Breast Exam: Deferred Gastrointestinal: No Organomegaly, Non Tender, No Pulsatile Mass, Normal Bowel Sounds, Soft Genitalia: Deferred Pelvic: Deferred Rectal: Deferred Extremities: Normal capillary refill, Normal inspection, Normal range of motion, Non-tender, No pedal edema Musculoskeletal : Apperance: Normal Neurologic: Alert, physical therapy assistant instructor II-XII nml as Tested, No Motor Deficits, Normal Affect, Normal Mood, No Sensory Deficits Cerebellar Function: Normal Reflexes: Normal Skin: Dry, Normal Color, Warm Lymphatic: No Adenopathy Was a procedure done? Was a procedure done?: No EENT DIFF Eye: N/A Ear: N/A Nose: N/A Mouth: N/A Sore Throat: Enrique's Angina X-Ray, Labs, Meds, VS Vital Signs Date Time Temp Pulse Resp B/P (MAP) Pulse Ox O2 Delivery O2 Flow Rate FiO2 01/02/25 23:08 Room Air 01/02/25 23:08 97.9 98 18 150/90 (110) 96 01/02/25 23:08 97.9 98 18 150/90 (110) 96 97.9 Current Medications Medications (Trade) Dose Ordered Sig/Tracey Route Start Time Stop Time Status Last Admin Ketorolac Tromethamine (Toradol Injection) 60 mg ONCE ONCE IM 01/03/25 01:00 01/03/25 01:01 DC 01/03/25 01:02 X-Ray, Labs, Meds, VS Comment CT scan maxillofacial shows no acute findings no noted abscess. Patient was given Toradol 60 mg IM reports improvement in pain and swelling requesting discharge at this time. Advised to continue the clindamycin, she she has only been on it for 2 days, advised her to follow back up with dental, ER return precautions given patient indicates understanding and agrees with discharge plan of care. Time of 1ST Reevaluation: 02:03 Reevaluation 1ST: Improved Patient Education/Counseling: Diagnosis, Treatment, Prognosis, Need For Follow Up Family Education/Counseling: No Family Present Departure 1 Departure Time of Disposition: 02:03 Impression: Primary Impression: Dental infection Disposition: 01 HOME / SELF CARE / HOMELESS Condition: Stable Discharged With: Self Critical Care Note Critical Care Time?: No Stability Stability form required: ALBERT Serra Jan 03, 2025 02:03
== END 2025-01-03 02:14 | disposition home or self-care (01) ==
LOC: ER 22:55
DX: K04.7 Periapical abscess without sinus (principal); I10 Essential (primary) hypertension; F17.200 Nicotine dependence, unspecified, uncomplicated; Z79.899 Other long term (current) drug therapy
CPT/HCPCS: 70486; 96372; 99285; J1885